=== PATIENT | female | born 1990 | race Caucasian/White ===

== ENCOUNTER → 2016-06-06 17:44 | Emergency (ER) | payer OTHER ==
[2016-06-06 17:44] VITALS: BMI 23.5
== END | disposition left against medical advice (07) ==
LOC: C.ER 17:44
DX: Z04.8 Encounter for examination and observation for other specified reasons (principal); Z02.9 Encounter for administrative examinations, unspecified

== ENCOUNTER 2016-06-25 12:39 | Emergency (ER) | payer OTHER ==
[2016-06-25 12:40] VITALS: BMI 18.8
[2016-06-25 12:57] VITALS: BP 108/72; PULSE 95; RESP 16; TEMP 98.1; O2SAT 98
--- NOTE | 2016-06-25 13:29 | C.PDOC ---
History Of Present Illness A 25 year old female, with a history of substance abuse, presents to the emergency room initially requesting detox. Patient now denies detox bed and presents with a pruritic rash on the neck. Patient reports that she was wearing a necklace on the neck yesterday and notes the rash is where the necklace was worn. Patient denies fever, chills, headaches, dizziness, or any other complaints. Time Seen by Provider: 06/25/16 13:02 Chief Complaint (Nursing): Substance Abuse History Per: Patient History/Exam Limitations: no limitations Onset/Duration Of Symptoms: Days (1) Current Symptoms Are (Timing): Still Present Severity: Mild Recent travel outside of the [place]: No Past Medical History Reviewed: Historical Data, Nursing Documentation, Vital Signs Vital Signs: Last Vital Signs Temp 98.1 F 06/25/16 12:54 Pulse 95 H 06/25/16 12:54 Resp 16 06/25/16 12:54 BP 108/72 06/25/16 12:54 Pulse Ox 98 06/25/16 13:29 - Medical History PMH: Anemia, Anxiety, Bipolar Disorder, Depression, Seizures Denies: Diabetes, Hepatitis, HIV, HTN, Chronic Kidney Disease, Sexually Transmitted Disease - [facility] Procedures DETOXIFICATION SERVICES FOR SUBSTANCE ABUSE TREATMENT (10/17/15) GROUP PSYCHOTHERAPY (10/17/15) IMMOBILIZ/WOUND ATTN NEC (10/18/01) INJECT/INFUSE ELECTROLYT (06/02/12) INJECT/INFUSE NEC (06/02/12) MEDICATION MANAGEMENT (10/17/15) MEDS MGMT FOR SUBSTANCE ABUSE TREATMENT, OTH REPL MED (10/17/15) Family History: States: No Known Family Hx - Social History Hx Tobacco Use: Yes Hx Alcohol Use: No Hx Substance Use: Yes (Methadone Program) - Immunization History Hx Tetanus Toxoid Vaccination: No Hx Influenza Vaccination: No Hx Pneumococcal Vaccination: No Review Of Systems Except As Marked, All Systems Reviewed And Found Negative. Constitutional: Negative for: Fever, Chills Gastrointestinal: Negative for: Nausea, Vomiting, Diarrhea Skin: Positive for: Rash Neurological: Negative for: Headache, Dizziness Physical Exam - Physical Exam Appears: Non-toxic Skin: Rash ([id number] maculopapular erythema blanching surrounding the neck) Head: Atraumatic, Normacephalic Eye(s): bilateral: Normal Inspection Ear(s): Bilateral: TM Erythema Nose: Normal, No Discharge Oral Mucosa: Moist Throat: Normal, No Erythema, No Exudate Neck: Normal ROM, No Midline Cervical Tenderness, No Paracervical Tenderness, Supple Cardiovascular: Rhythm Regular Respiratory: Normal Breath Sounds, No Rales, No Rhonchi, No Wheezing Gastrointestinal/Abdominal: Soft, No Tenderness, No Guarding, No Rebound Extremity: Normal ROM, No Tenderness Neurological/Psych: Oriented x3, Normal Speech ED Course And Treatment O2 Sat by Pulse Oximetry: 98 Disposition - Disposition Disposition: HOME/ ROUTINE Disposition Time: 13:27 Condition: STABLE Additional Instructions: please follow up with your doctor/specialist. please stop wearing the necklace. return to er with worsening symptoms or concerns. Prescriptions: DiphenhydrAMINE [Benadryl] 25 mg PO Q6 PRN #20 cap PRN Reason: Itching / Pruritus Hydrocortisone 1% Cream [Cortizone 1% Cream] 1 appl TP DAILY #1 tube Instructions: Contact Dermatitis (ED), Acute Rash (ED) - Clinical Impression Clinical Impression: Rash, Contact dermatitis - Scribe Statement The provider has reviewed the documentation as recorded by the Scribe Christian Platt All medical record entries made by the Elmeribtessie were at my direction and personally dictated by me. I have reviewed the chart and agree that the record accurately reflects my personal performance of the history, physical exam, medical decision making, and the department course for this patient. I have also personally directed, reviewed, and agree with the discharge instructions and disposition.
== END 2016-06-25 13:41 | disposition home or self-care (01) ==
LOC: C.ER 12:39
DX: L25.8 Unspecified contact dermatitis due to other agents (principal); F19.10 Other psychoactive substance abuse, uncomplicated

== ENCOUNTER 2016-06-26 22:51 | Emergency (ER) | payer OTHER ==
[2016-06-26 22:51] VITALS: BMI 18.8
[2016-06-26 23:14] VITALS: TEMP 97.9
--- NOTE | 2016-06-27 00:05 | C.PDOC ---
History Of Present Illness 25 year old female presents to the ED with complaints of right buttock pain radiating to her leg that began this morning and is worsening. Patient also states she has had an abnormal period over the last six month while in a clinic for detox from abusing IV drugs and injecting heroin. She notes vaginal discharge with a foul odor. Patient denies any heavy lifting, experiencing similar pains, or trauma to that region. Patient denies fever/chills, nausea, vomiting, abdominal pain, diarrhea. She denies any extremities paresthesia, weakness, sensory problems. Time Seen by Provider: 06/26/16 23:15 Chief Complaint (Nursing): Lower Extremity Problem/Injury History Per: Patient History/Exam Limitations: no limitations Onset/Duration Of Symptoms: Hrs Current Symptoms Are (Timing): Worse Recent travel outside of the [place]: No Past Medical History Reviewed: Historical Data, Nursing Documentation, Vital Signs Vital Signs: Last Vital Signs Temp 97.9 F 06/26/16 23:10 Pulse 72 06/27/16 01:49 Resp 16 06/27/16 01:49 BP 106/72 06/27/16 01:49 Pulse Ox 97 06/27/16 01:49 - Medical History PMH: Anemia, Anxiety, Bipolar Disorder, Depression, Seizures - [facility] Procedures DETOXIFICATION SERVICES FOR SUBSTANCE ABUSE TREATMENT (10/17/15) GROUP PSYCHOTHERAPY (10/17/15) IMMOBILIZ/WOUND ATTN NEC (10/18/01) INJECT/INFUSE ELECTROLYT (06/02/12) INJECT/INFUSE NEC (06/02/12) MEDICATION MANAGEMENT (10/17/15) MEDS MGMT FOR SUBSTANCE ABUSE TREATMENT, OTH REPL MED (10/17/15) Family History: States: No Known Family Hx - Social History Hx Tobacco Use: Yes Hx Alcohol Use: No Hx Substance Use: Yes (Methadone Program) - Immunization History Hx Tetanus Toxoid Vaccination: No Hx Influenza Vaccination: No Hx Pneumococcal Vaccination: No Review Of Systems Constitutional: Negative for: Fever, Chills, Sweats Respiratory: Negative for: Cough, Shortness of Breath Gastrointestinal: Negative for: Nausea, Vomiting, Abdominal Pain, Diarrhea Genitourinary: Negative for: Dysuria Musculoskeletal: Positive for: Back Pain (right lower back pain that radiates to leg ) Physical Exam - Physical Exam Appears: Non-toxic, No Acute Distress Skin: Warm, Dry Head: Atraumatic, Normacephalic Eye(s): bilateral: Normal Inspection, PERRL, EOMI Oral Mucosa: Moist Neck: Normal, Normal ROM, Supple Chest: Symmetrical, No Deformity Cardiovascular: Rhythm Regular Respiratory: No Accessory Muscle Use, No Rales, No Rhonchi, No Stridor, No Wheezing Gastrointestinal/Abdominal: Soft, No Tenderness, No Distention, No Guarding, No Rebound Back: Normal Inspection, No CVA Tenderness, No Vertebral Tenderness, No Decreased ROM, No Muscle Spasm, No Paraspinal Tenderness, Straight Leg Raising ( right at 60 degrees), Other (right buttock tenderness) Pelvic: Normal External Exam, Normal Speculum Exam, Normal Bimanual Exam, No Vaginal Bleeding, No Vaginal Discharge, Other (no cervicitis) Extremity: Normal ROM, No Tenderness Neurological/Psych: Oriented x3, Normal Speech, Normal Cognition, Normal Motor, Normal Sensation ED Course And Treatment O2 Sat by Pulse Oximetry: 99 (room air ) - CT Scan/US US PELVIS TRANSVAG Other Rad Studies (CT/US): Read By Radiologist, Radiology Report Reviewed CT/US Interpretation: EXAM: US Pelvis Complete. CLINICAL HISTORY: 25 years old, female; Pain; Pelvic pain and other: Rt leg pain; Additional info: Right pelvic pain. TECHNIQUE: Real-time pelvic ultrasound (complete) with image documentation. COMPARISON: No relevant prior studies available. FINDINGS: Uterus/cervix: Uterus measures 7.1 x 3.7 x 4.4 cm. Small amount of fluid in the endocervix. Endometrium measures 9.4 mm. No myometrial mass. Right ovary: Right ovary measures 2.5 x 2.4 x 2 cm with follicles. Normal blood flow. Left ovary: Left ovary measures 2.8 x 2.1 x 2.8 cm with a dominant 1.8 cm follicle. Normal blood. flow. Free fluid: No free fluid. IMPRESSION:This examination is predicated on a negative test. No acute findings. No primary or secondary sonographic findings of ovarian torsion. Progress Note: UA is consistabt with UTI. Macrobid po given. Patient refused Toradol IM. Ibuprofen and Valium po given. Patient was d/c home in stable condition with PMD follow up. Disposition - Disposition Disposition: HOME/ ROUTINE Disposition Time: 01:18 Condition: STABLE Additional Instructions: Follow up with PMD within 1-2 days. Return to ED if feel worse. Prescriptions: Cyclobenzaprine [Cyclobenzaprine HCl] 10 mg PO TID #15 tab Lidocaine 5% [Lidoderm] 1 patch TP DAILY #30 patch Nitrofurantoin Macrocrystals [Macrobid] 1 cap PO BID #14 cap Ibuprofen [Motrin Tab] 600 mg PO Q8 #30 tab Instructions: Urinary Tract Infection in Women (ED), Sciatica (ED) - Clinical Impression Clinical Impression: Sciatica, UTI (urinary tract infection) - Scribe Statement The provider has reviewed the documentation as recorded by the Scribe Rhiannon Todd All medical record entries made by the Scribe were at my direction and personally dictated by me. I have reviewed the chart and agree that the record accurately reflects my personal performance of the history, physical exam, medical decision making, and the department course for this patient. I have also personally directed, reviewed, and agree with the discharge instructions and disposition.
[2016-06-27 00:33] LABS: RBC URINE 22 /hpf (0-3); URINE BILIRUBIN NEGATIVE (NEGATIVE); URINE BLOOD NEGATIVE (NEGATIVE); URINE COLOR Amber (YELLOW); URINE GLUCOSE (UA) NORMAL (Normal); URINE KETONE TRACE mg/dL (NEGATIVE); URINE LEUKOCYTE ESTERASE 3+ Leu/uL (Negative); URINE PROTEIN 1+ mg/dL (NEGATIVE); URINE UROBILINOGEN NORMAL mg/dL (0.2-1.0); WBC URINE 23 /hpf (0-5)
[2016-06-27 01:54] VITALS: BP 106/72; PULSE 72; RESP 16
[2016-06-27 03:15] VITALS: O2SAT 99
--- NOTE | 2016-06-27 15:37 | US ---
Pelvic ultrasound History: Right-sided pelvic pain. Comparison: None available. Technique: Real-time sonography was performed through the pelvis utilizing transabdominal and transvaginal techniques. Findings Uterus 7.4 x 3.3 x 4.7 centimeters. Heterogeneous echotexture. Anteverted. Endometrium measures 9.4 millimeters, within normal limits. No free fluid in pelvic cul-de-sac. Right ovary: 2.5 x 2.4 x 2.0 centimeters. Normal flow. Small follicles. Left ovary: 2.8 x 2 8 x 2 centimeters. Normal Flow. Hypoechoic cyst measuring 1.5 x 1.1 x 1.8 centimeters. Impression: This exam is predicated on a negative test. 1.8 centimeter left ovarian cyst. These findings were preliminarily reported at 12:51 a.m. on 06/27/[address] Brianna Bear from [facility].
== END 2016-06-27 01:48 | disposition home or self-care (01) ==
LOC: C.ER 22:51
DX: N39.0 Urinary tract infection, site not specified (principal); M54.30 Sciatica, unspecified side
CPT/HCPCS: 76830; 76856; 81001; 84703; 87491; 87591; 96372; 99284; J1885

== ENCOUNTER 2016-06-28 11:18 | Inpatient (IN) | payer MEDICAID, OTHER ==
[2016-06-28 11:18] VITALS: BMI 18.8
--- NOTE | 2016-06-28 12:26 | C.PDOC ---
History Of Present Illness 25 year old patient presents to the ED complaining of depression and suicidal ideation. Patient states she uses heroin and her last use was 30 minutes prior to arrival. Patient denies fever or any other complaints at this time. Time Seen by Provider: 06/28/16 12:12 Chief Complaint (Nursing): Psychiatric Evaluation History Per: Patient History/Exam Limitations: other (under the influence of heroin) Onset/Duration Of Symptoms: Other Current Symptoms Are (Timing): Still Present Suicide/Self Injury Attempted (Context): None Modifying Factor(s): Other (heroin) Severity: None Pain Scale Rating Of: 0 Associated Symptoms: Depression, Suicidal Thoughts Recent travel outside of the [place]: No Past Medical History Reviewed: Historical Data, Nursing Documentation, Vital Signs Vital Signs: Last Vital Signs Temp 98.2 F 06/28/16 11:38 Pulse 92 H 06/28/16 11:38 Resp 20 06/28/16 11:38 BP 96/65 L 06/28/16 11:38 Pulse Ox 95 06/28/16 15:06 - Medical History PMH: Anemia, Anxiety, Bipolar Disorder, Depression, Seizures - [facility] Procedures DETOXIFICATION SERVICES FOR SUBSTANCE ABUSE TREATMENT (10/17/15) GROUP PSYCHOTHERAPY (10/17/15) IMMOBILIZ/WOUND ATTN NEC (10/18/01) INJECT/INFUSE ELECTROLYT (06/02/12) INJECT/INFUSE NEC (06/02/12) MEDICATION MANAGEMENT (10/17/15) MEDS MGMT FOR SUBSTANCE ABUSE TREATMENT, OTH REPL MED (10/17/15) Family History: States: Unknown Family Hx - Social History Hx Tobacco Use: Yes Hx Alcohol Use: No Hx Substance Use: Yes - Immunization History Hx Tetanus Toxoid Vaccination: No Hx Influenza Vaccination: No Hx Pneumococcal Vaccination: No Review Of Systems Except As Marked, All Systems Reviewed And Found Negative. Constitutional: Negative for: Fever Psych: Positive for: Depression, Suicidal ideation Physical Exam - Physical Exam Appears: Non-toxic, No Acute Distress Skin: Warm, Dry Head: Atraumatic, Normacephalic Neck: Normal ROM, Supple Chest: Symmetrical Cardiovascular: Rhythm Regular Respiratory: No Accessory Muscle Use Extremity: Normal ROM Neurological/Psych: Oriented x3 Gait: Steady ED Course And Treatment - Laboratory Results Result Diagrams: 06/28/16 13:38 06/28/16 13:38 O2 Sat by Pulse Oximetry: 95 (room air) Pulse Ox Interpretation: Normal Medical Decision Making Medical Decision Making: Impression: 25 y/o female with depression and suicidal ideation Plan: * Labs Progress: Patient is medically cleared. She is accepted by Dr. Velasco for admission. Disposition - Disposition Disposition: HOSPITALIZED Disposition Time: 15:05 Condition: STABLE - Clinical Impression Clinical Impression: Depression, Hypokalemia, UTI (urinary tract infection) - Scribe Statement The provider has reviewed the documentation as recorded by the Scribe Julia James Provider Attestation: All medical record entries made by the Scribe were at my direction and personally dictated by me. I have reviewed the chart and agree that the record accurately reflects my personal performance of the history, physical exam, medical decision making, and the department course for this patient. I have also personally directed, reviewed, and agree with the discharge instructions and disposition. Decision To Admit - Pt Status Changed To: Hospital Disposition Of: Inpatient - Admit Certification Admit to Inpatient:: After my assessment, the patient will require hospitalization for at least two midnights. This is because of the severity of symptoms shown, intensity of services needed, and/or the medical risk in this patient being treated as an outpatient. - InPatient: Physician Admission Certification: I certify that this patient requires 2 or more midnights of care for the following reason:: pt with depressiom, needs inpt pysch - . Bed Request Type: Psychiatry Admitting Physician: Wai Velasco Patient Diagnosis: Depression, Hypokalemia, UTI (urinary tract infection)
[2016-06-28 13:10] LABS: RBC URINE 19 /hpf (0-3); URINE BILIRUBIN NEGATIVE (NEGATIVE); URINE COLOR Yellow (YELLOW); URINE GLUCOSE (UA) 1+ mg/dL (Normal); URINE KETONE 2+ mg/dL (NEGATIVE); URINE LEUKOCYTE ESTERASE 3+ Leu/uL (Negative); URINE PROTEIN 1+ mg/dL (NEGATIVE); URINE UROBILINOGEN NORMAL mg/dL (0.2-1.0); WBC URINE 45 /hpf (0-5)
[2016-06-28 13:20] LABS: URINE BLOOD 2+ (NEGATIVE)
[2016-06-28 13:42] LABS: BASO # 0.1 K/uL (0.0-0.2); BASO % 0.6 % (0.0-2.0); EOS % 0.1 % (0.0-4.0); HEMATOCRIT 33.5 % (34.0-47.0); LYMPH # 1.4 K/uL (1.0-4.3); LYMPH % 17.7 % (20.0-40.0); MEAN CELL VOLUME 83.8 fL (81.0-99.0); MEAN CORPUSCULAR HEMOGLOBIN 28.2 pg (27.0-31.0); MEAN CORPUSCULAR HGB CONC 33.6 g/dL (33.0-37.0); MEAN PLATELET VOLUME 11.5 fL (7.2-11.7); MONO # 0.6 K/uL (0.0-0.8); MONO % 7.1 % (0.0-10.0); RED CELL DISTRIBUTION WIDTH 13.7 % (11.5-14.5); WHITE BLOOD COUNT 7.9 K/uL (4.8-10.8)
[2016-06-28 13:52] LABS: CHLORIDE 102 mmol/L (98-107)
[2016-06-28 13:53] LABS: POTASSIUM 3.2 mmol/L (3.6-5.2); SODIUM 139 mmol/L (132-148)
[2016-06-28 13:55] LABS: ALKALINE PHOSPHATASE 69 U/L (38-126); AST/SGOT 39 U/L (14-36); BILIRUBIN,TOTAL 0.7 mg/dL (0.2-1.3); BLOOD UREA NITROGEN 11 mg/dL (7-17); CARBON DIOXIDE 24 mmol/L (22-30); GFR AFRICAN-AMERICAN > 60; TOTAL PROTEIN 7.5 g/dL (6.3-8.3)
[2016-06-28] MEDS ORDERED: Potassium Chloride 20 mEq ER Tab PO STA (13:55)
[2016-06-28 13:56] LABS: ALCOHOL SERUM < 10 mg/dl (0-10); ALT/SGPT 22 U/L (9-52); CALCIUM 8.7 mg/dl (8.6-10.4); GLUCOSE,RANDOM 166 mg/dL (65-105)
[2016-06-28] MEDS ORDERED: Potassium Chloride 20 mEq ER Tab PO ONE (14:29)
[2016-06-28 15:34] VITALS: O2SAT 100
[2016-06-28] MEDS ORDERED: Aluminum Hydroxide/Magnesium Hydroxide Susp (30 mL) PO PRN (22:42)
--- NOTE | 2016-06-29 09:42 | PCM.PSYCH ---
Initial Psychiatric Evaluation - Initial Psychiatric Evaluation Type of Admission: Voluntary Legal Status: Capacity Chief Complaint (in patient's own words): "I don't feel good at all." History of Present Illness and Precipitating Events: Patient is a 25 year old [place] female who presents with depression and suicidal ideation. She lives with her father. 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 Patient states she has a history of heroin use for 6 years; her last use was yesterday. She states she 20-30 bags of heroin IV in the morning, 5-10 bags of cocaine IV after that, and another 20-30 bags of heroin IV in the evening. She uses her neck and her arms to shoot up. She states she smokes 1 blunt a day, and has been smoking cigarettes for 7 years. 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 Patient states she is depressed, anxious, distressed, and has racing thoughts. She reports suicidal ideation but denies any homicidal ideation. She reports paranoia but denies any AV hallucinations. Patient also complains of right leg pain for 2 weeks making it difficult for her to stand and walk. She states she thinks it is sciatica, and has difficulty straightening out her right leg. PMH: thrombocytopenia PastPsychHx: was at [employer] 3 years ago- got kicked out for using cocaine FamilyHx: mother and father - DM Surgeries: 2009 Hospitalizations: none Medications: none Current Medications: Active Medications Generic Name Dose Route Start Last Admin Trade Name Freq PRN Reason Stop Dose Admin Al Hydrox/Mg Hydrox/Simethicone 30 ml 06/28/16 22:42 Maalox 30 Ml PO TID PRN Indigestion / Heartburn Clonidine HCl 0.1 mg 06/28/16 22:42 Catapres PO Q8 PRN COWS Score More or Equal to 5 Diphenhydramine HCl 25 mg 06/28/16 22:23 06/28/16 22:32 Benadryl PO 25 mg HS PRN Administration Insomnia Gabapentin 300 mg 06/28/16 18:00 06/29/16 09:11 Neurontin PO 300 mg TID TERA Administration Hydroxyzine HCl 25 mg 06/28/16 22:43 Atarax PO Q4H PRN Anxiety Ibuprofen 600 mg 06/28/16 22:43 Motrin Tab PO Q6H PRN Pain, moderate (4-7) Loperamide HCl 2 mg 06/28/16 22:42 Imodium PO Q8 PRN Diarrhea Methadone HCl 0 mg 06/29/16 10:00 06/29/16 09:11 Methadone PO 07/03/16 09:59 15 mg Q24H TERA Administration Taper Multivitamins 1 tab 06/29/16 10:00 Hexavitamin PO DAILY TERA Nitrofurantoin Macrocrystals 100 mg 06/28/16 22:00 06/29/16 09:11 Macrobid PO 07/04/16 22:00 100 mg Q12H TERA Administration Ondansetron HCl 4 mg 06/28/16 22:42 Zofran Tab PO Q8 PRN Nausea/Vomiting Trazodone HCl 50 mg 06/28/16 22:43 Desyrel PO HS PRN Insomnia Past Psychiatric History - Past Psychiatric History Previous Treatment History: Inpatient Prior Professional Help: [employer] 3 years ago - kicked out for using cocaine History of Abuse: Patient states she has a history of heroin use for 6 years; her last use was yesterday. She states she 20-30 bags of heroin IV in the morning, 5-10 bags of cocaine IV after that, and another 20-30 bags of heroin IV in the evening. She uses her neck and her arms to shoot up. She states she smokes 1 blunt a day, and has been smoking cigarettes for 7 years. 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 History of Family Illness: Mother and father - DM Pertinent Medical Hx (Current Medical&Sleep Prob, Allergies): Allergies Allergy/AdvReac Type Severity Reaction Status Date / Time cheese AdvReac Intermediate RASH Verified 06/25/16 12:54 No Known Home Med 06/28/16 Review of Systems - Review of Systems All systems: reviewed and no additional remarkable complaints except - Musculoskeletal Musculoskeletal: Limited Range of Motion, Stiffness - Integumentary Additional comments: Track ennis on both forearms and on neck - Psychiatric Psychiatric: Anxiety, Depression, Irritability, Mood Swings, Paranoia, Suicidal Ideation Mental Status Examination - Personal Presentation Personal Presentation: Looks stated age - Affect Affect: Constricted - Motor Activity Motor Activity: Psychomotor Agitation - Reliability in Providing Information Reliability in Providing Information: Good - Speech Speech: Organized - Mood Mood: Depressed, Anxious - Formal Thought Process Formal Thought Process: Delusions, Paranoia - Hallucinations/Delusions Delusions: Persecution - Obsessions/Compulsions Obsessions: No Compulsions: No - Cognitive Functions Orientation: Person, Place, Situation, Time Sensorium: Alert Attention/Concentration: Attentive Abstract Thinking: [place] Estimate of Intelligence: Below average Judgement: Imparied, as evidence by: Poor judgement, Imparied, as evidence by: Lack of insight into illness - Risk Risk: Suicidal, Withdrawal, Diminished functioning - Strength & Assets Inventory Strength & Assets Inventory: Family support DSM 5 DX - DSM 5 DSM 5 Diagnosis: Bipolar disorder MRE Mixed severe without psychotic features CBT Psychoeducation Supportive therapy, group therapy, individual therapy Neurontin 300 mg by mouth 3 times a day Trazodone 100 mg by mouth daily at bedtime Alcohol use disorder severe CBT Psychoeducation Supportive therapy, individual therapy Use [place] for abstinence Alcohol withdrawal uncomplicated CBT Psychoeducation Supportive therapy, individual therapy Librium when necessary Librium taper Folic acid/thiamine/multivitamin HTN Continue prescribed medications Monitor s/s - Recommended/Plan of Treatment Treatment Recommendations and Plan of Treatment: Bipolar disorder MRE Mixed severe with psychotic features CBT Psychoeducation Supportive therapy, group therapy, individual therapy [place] 300 mg by mouth twice a day Neurontin 300 mg by mouth 3 times a day Trazodone 50 mg by mouth daily at bedtime Opioid use disorder severe CBT Psychoeducation Supportive therapy, individual therapy Use [place] for abstinence Opioid withdrawal CBT Psychoeducation Supportive therapy, individual therapy Clonidine when necessary Methadone taper Cocaine use disorder severe CBT Psychoeducation Supportive therapy, individual therapy Use [place] for abstinence Sedative/hypnotic use disorder severe CBT Psychoeducation Supportive therapy, individual therapy Use [place] for abstinence Ativan 1 mg every 6 hours when necessary UTI Continue prescribed medications Monitor s/s
[2016-06-29] MEDS: Multiple Vitamins Tab PO SCH (11:15)
[2016-06-29 11:31] LABS: CHLORIDE 102 mmol/L (98-107)
[2016-06-29 11:32] LABS: POTASSIUM 4.2 mmol/L (3.6-5.2); SODIUM 139 mmol/L (132-148)
[2016-06-29 11:34] LABS: GFR AFRICAN-AMERICAN > 60
[2016-06-29 11:35] LABS: ALB/GLOB RATIO 0.9 (1.0-2.1); ALKALINE PHOSPHATASE 78 U/L (38-126); ALT/SGPT 22 U/L (9-52); AST/SGOT 40 U/L (14-36); BILIRUBIN,TOTAL 0.8 mg/dL (0.2-1.3); BLOOD UREA NITROGEN 9 mg/dL (7-17); CALCIUM 9.1 mg/dl (8.6-10.4); CARBON DIOXIDE 26 mmol/L (22-30); GLUCOSE,RANDOM 95 mg/dL (65-105); TOTAL PROTEIN 8.5 g/dL (6.3-8.3)
[2016-06-29 11:36] LABS: MAGNESIUM 2.3 mg/dL (1.6-2.3)
[2016-06-29 12:02] LABS: THYROID STIMULATING HORMONE 0.21 mIU/L (0.46-4.68)
[2016-06-30] MEDS: Multiple Vitamins Tab PO SCH (10:05)
--- NOTE | 2016-06-30 13:55 | PCM.PYCHPN ---
Psychiatric Progress Note - Psychiatric Progress Note Patient seen today, length of contact: 15 min Patient Chief Complaint: "I don't feel good at all." Problems Identified/Issues Discussed: Patient seen and evaluated, chart reviewed and discussed with the nurse. Patient reports irritability and agitation. She reports racing of thoughts and flight of ideas and anxiety. She still reports withdrawal symptoms including shakes, anxiety, headaches and sweating. However she remained calm and cooperative. She is taking medication and denies any side effects. Supportive therapy and psychoeducation were given Medication Change: Yes (Methadone taper) Medical Record Reviewed: Yes Mental Status Examination - Cognitive Function Orientation: Person, Place, Situation, Time Memory: Intact Attention: WNL Concentration: Poor Association: WNL Fund of Knowledge: Poor - Mood Mood: Depressed, Anxious - Affect Affect: Constricted - Formal Thought Process Formal Thought Process: No Impairment - Suicidal Ideation Suicidal Ideation: No - Homicidal Ideation Homicidal Ideation: No Goal/Treatment Plan - Goal/Treatment Plan Need for Continued Stay: Discharge may exacerbated symptoms, Severe functional impairment Progress Toward Problem(s) and Goals/Treatment Plan: Bipolar disorder MRE Mixed severe with psychotic features CBT Psychoeducation Supportive therapy, group therapy, individual therapy [place] 300 mg by mouth twice a day Neurontin 300 mg by mouth 3 times a day Trazodone 50 mg by mouth daily at bedtime Opioid use disorder severe CBT Psychoeducation Supportive therapy, individual therapy Use CT for abstinence Opioid withdrawal CBT Psychoeducation Supportive therapy, individual therapy Clonidine when necessary Methadone taper Cocaine use disorder severe CBT Psychoeducation Supportive therapy, individual therapy Use CT for abstinence Sedative/hypnotic use disorder severe CBT Psychoeducation Supportive therapy, individual therapy Use CT for abstinence Ativan 1 mg every 6 hours when necessary UTI Continue prescribed medications Monitor s/s - Smoking Cessation Smoking Cessation Initiated: No
--- NOTE | 2016-06-30 14:27 | CP.PCM.CON ---
Addendum entered and electronically signed by Eunice Dixon 06/30/16 16:36: f/u venous dopplers b/l Original Note: <Eunice Dixon - Last Filed: 06/30/16 16:15> History of Present Illness - History of Present Illness History of Present Illness: Medicine Consult note for Dr. Bains Reason for consult: pain and weakness in right leg and hip. HPI: Pt is a 25 year old female PMHx of thrombocytopenia, depression, suicidal ideation, hep C, and substance abuse complaining of R leg and hip pain/ weakness. Pt seen and examined at bedside. Nursing states that pt has been complaining of leg pain since her wheelchair was removed shortly after admission. Pt says the pain starts at her low back, radiates into her groin and goes down to above her knee. She describes the pain as sharp "like birthing contractions" and ranks it as a 10/10. She states the pain started 3 days ago when she woke up. She states there was no inciting event or trauma, but she also notes that she rode a bike the day before. She reports the pain is excruciatingly tender to touch and her Right foot hurts when she puts any pressure on it. She reports having to limp when she walks as she is unable to extend her R leg fully. She admits to weakness, R leg pain, R swelling, and R lower back pain. She was seen [place] [facility] [place] for similar complaints but reports she does not remember what they did as she was "doped up" but believes they might have done an u/s. She deneis fever, chills, headache, dizziness, chest pain, palpitations, SOB, cough, abd pain, nausea, vomiting, bowel/bladder complaints. PMHx: thrombocytopenia, depression, suicidal ideation, hep C, substance abuse Allergies: cheese Home medications: none Past Surgical Hx: 2010 Social Hx: 20-30 bags of heroin IV in the morning, 5-10 bags of cocaine IV after that, and another 20-30 bags of heroin IV in the evening. Patient injects in her neck as she has poor arm veins. Patient smokes 1 blunt a day, and has been smoking cigarettes for 7 years. 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 Family Hx: mother and father - DM ROS: admits to weakness, R leg pain, R swelling, and R lower back pain. She was seen at [facility] [place] ago for similar complaints but reports she does not remember what they did as she was "doped up" but believes they might have done an u/s. She denies fever, chills, headache, dizziness, chest pain, palpitations , SOB, cough, abd pain, nausea, vomiting, bowel/bladder complaints. Review of Systems - Constitutional Constitutional: As Per HPI, Weakness. absent: Chills, Fever - EENT Eyes: As Per HPI. absent: Change in Vision Ears: As Per HPI. absent: Dizziness Nose/Mouth/Throat: As Per HPI. absent: Sore Throat - Cardiovascular Cardiovascular: As Per HPI. absent: Chest Pain, Dyspnea, Paroxysmal Nocturnal Dyspnea - Respiratory Respiratory: As Per HPI. absent: Cough, Dyspnea on Exertion, Chest Congestion - Gastrointestinal Gastrointestinal: As Per HPI. absent: Abdominal Pain, Constipation, Diarrhea, Nausea, Vomiting - Genitourinary Genitourinary: As Per HPI. absent: Dysuria - Musculoskeletal Musculoskeletal: As Per HPI, Abnormal Gait, Arthralgias (RLE), Back Pain (R lower back), Limited Range of Motion (R leg secondary to R hip pain), Muscle Cramps (RLE), Muscle Weakness (R leg), Myalgias (R lower leg), Numbness (R lower leg), Radiating Pain into Limb (R lower leg), Tingling (RLE). absent: Neck Pain - Integumentary Integumentary: As Per HPI. absent: Rash - Neurological Neurological: As Per HPI, Abnormal Gait. absent: Dizziness, Headaches - Psychiatric Psychiatric: As Per HPI, Anxiety, Depression - Endocrine Endocrine: As Per HPI. absent: Palpitations, Polydipsia, Polyphagia - Hematologic/Lymphatic Hematologic: As Per HPI. absent: Easy Bleeding, Easy Bruising, Lymphadenopathy Past Patient History - Infectious Disease Hx of Infectious Diseases: None - Past Social History Smoking Status: Heavy Smoker > 10 Cigarettes Daily - CARDIAC Hx Hypertension: No - PULMONARY Hx Tuberculosis: No - NEUROLOGICAL Hx Seizures: Yes - HEENT Hx HEENT Problems: No - RENAL Hx Chronic Kidney Disease: No - ENDOCRINE/METABOLIC Hx Endocrine Disorders: No - HEMATOLOGICAL/ONCOLOGICAL Hx Anemia: Yes - INTEGUMENTARY Hx Dermatological Problems: No - MUSCULOSKELETAL/RHEUMATOLOGICAL Hx Musculoskeletal Disorders: No - GASTROINTESTINAL Hx Gastrointestinal Disorders: No - GENITOURINARY/GYNECOLOGICAL Hx Sexually Transmitted Disorders: No - PSYCHIATRIC Hx Substance Use: Yes - SURGICAL HISTORY Hx Surgeries: Yes Hx Section: Yes - ANESTHESIA Hx Anesthesia: Yes Hx Anesthesia Reactions: No Hx Malignant Hyperthermia: No Meds Allergies/Adverse Reactions: Allergies Allergy/AdvReac Type Severity Reaction Status Date / Time cheese AdvReac Intermediate RASH Verified 06/25/16 12:54 - Medications Medications: Current Medications Al Hydrox/Mg Hydrox/Simethicone (Maalox 30 Ml) 30 ml PO TID PRN PRN Reason: Indigestion / Heartburn Clonidine HCl (Catapres) 0.1 mg PO Q8 PRN PRN Reason: COWS Score More or Equal to 5 Cyclobenzaprine HCl (Flexeril) 10 mg PO Q6 PRN PRN Reason: Muscle spasm Last Admin: 06/30/16 04:43 Dose: 10 mg Diphenhydramine HCl (Benadryl) 25 mg PO HS PRN PRN Reason: Insomnia Last Admin: 06/29/16 21:18 Dose: 25 mg Gabapentin (Neurontin) 300 mg PO TID [facility] Last Admin: 06/30/16 13:42 Dose: 300 mg Hydroxyzine HCl (Atarax) 25 mg PO Q4H PRN PRN Reason: Anxiety Last Admin: 06/30/16 11:00 Dose: 25 mg Ibuprofen (Motrin Tab) 600 mg PO Q6H PRN PRN Reason: Pain, moderate (4-7) Last Admin: 06/29/16 17:08 Dose: 600 mg Comobabi Carbonate (Comobabi Carbonate 300mg) 300 mg PO TID [facility] Last Admin: 06/30/16 13:42 Dose: 300 mg Loperamide HCl (Imodium) 2 mg PO Q8 PRN PRN Reason: Diarrhea Methadone HCl (Methadone) 10 mg PO Q24H [facility] PRN Reason: Taper Stop: 07/03/16 09:59 Last Admin: 06/30/16 10:05 Dose: 10 mg Multivitamins (Hexavitamin) 1 tab PO DAILY [facility] Last Admin: 06/30/16 10:05 Dose: 1 tab Nitrofurantoin Macrocrystals (Macrobid) 100 mg PO Q12H [facility] Stop: 07/04/16 22:00 Last Admin: 06/30/16 10:05 Dose: 100 mg Ondansetron HCl (Zofran Tab) 4 mg PO Q8 PRN PRN Reason: Nausea/Vomiting Trazodone HCl (Desyrel) 50 mg PO HS PRN PRN Reason: Insomnia Last Admin: 06/29/16 21:19 Dose: 50 mg Physical Exam - Constitutional Appears: Non-toxic, In Acute Distress, Chronically Ill - Head Exam Head Exam: ATRAUMATIC, NORMAL INSPECTION, NORMOCEPHALIC - Eye Exam Eye Exam: Normal appearance. absent: Conjunctival injection, Scleral icterus - ENT Exam ENT Exam: Mucous Membranes Moist - Neck Exam Neck exam: Positive for: Full Rom Additional comments: neck ecchymosis likely secondary to needle injection sites - Respiratory Exam Respiratory Exam: Clear to Auscultation Bilateral, NORMAL BREATHING PATTERN. absent: Accessory Muscle Use, Rales, Rhonchi, Wheezes, Respiratory Distress - Cardiovascular Exam Cardiovascular Exam: REGULAR RHYTHM, RRR, +S1, +S2. absent: Systolic Murmur - GI/Abdominal Exam GI & Abdominal Exam: Normal Bowel Sounds, Soft, Tenderness (to palpation). absent: Distended, Firm, Guarding, Rigid - Extremities Exam Extremities exam: Positive for: tenderness, pedal pulses present. Negative for : calf tenderness, joint swelling, pedal edema Additional comments: ecchymosis likely secondary to needle injection sites on feet - Back Exam Back exam: NORMAL INSPECTION, paraspinal tenderness (R lower back ), tenderness (R lower back and R hip), vertebral tenderness (R lower back). absent: rash noted - Neurological Exam Neurological exam: Abnormal Gait, Alert, Oriented x3 - Psychiatric Exam Psychiatric exam: Anxious, Depressed - Skin Skin Exam: Dry, Intact, Normal Color, Warm Results - Vital Signs Recent Vital Signs: Last Vital Signs Temp 97.5 F L 06/29/16 08:07 Pulse 74 06/29/16 15:55 Resp 20 06/29/16 08:07 BP 92/62 L 06/29/16 15:55 Pulse Ox 100 06/28/16 15:34 - Labs Result Diagrams: 06/28/16 13:38 06/29/16 11:14 Labs: Laboratory Results - last 24 hr 06/30/16 08:15 Hepatitis C Antibody Reactive H Assessment & Plan - Assessment and Plan (Free Text) Assessment: 25 year old female PMHx of thrombocytopenia, depression, suicidal ideation, hep C, substance abuse presenting with R hip pain radiating to her leg Plan: R hip pain -Lumbar radiculopathy vs herniated disc vs sciatica vs hip fracture vs muscle strain vs neuropathy vs malingering -f/u AM labs -f/u hip x-ray b/l -f/u lumbar x-ray -f/u sacrum & coccyx x-ray -Fall precaution -Flexeril 10mg po q6 prn muscle spasm -Neurontin 300mg po tid -Motrin 600mg po q6h prn pain mod UTI -Macrobid 100mg po q12 -UA +3 leuk esterase, +45 WBC, +19 RBC, +1 Protein Hep C -Manage outpatient Bipolar disorder with psychotic features -Managed as per psych Severe opioid use disorder -Managed as per psych Opioid withdrawal -Managed as per psych Severe cocaine use disorder -Managed as per psych Substance abuse -Managed as per psych PPX -Zofran 4mg po q8 prn nausea/vomiting -Ibuprofen 600mg po q6 prn pain mod -Pepcid 20mg po bid -multivitamins Plan discussed with Dr. Nara Dixon PGY1 <Marivel Bains V - Last Filed: 07/01/16 09:25> Meds - Medications Medications: Current Medications Al Hydrox/Mg Hydrox/Simethicone (Maalox 30 Ml) 30 ml PO TID PRN PRN Reason: Indigestion / Heartburn Clonidine HCl (Catapres) 0.1 mg PO Q8 PRN PRN Reason: COWS Score More or Equal to 5 Cyclobenzaprine HCl (Flexeril) 10 mg PO Q6 PRN PRN Reason: Muscle spasm Last Admin: 06/30/16 04:43 Dose: 10 mg Diphenhydramine HCl (Benadryl) 25 mg PO HS PRN PRN Reason: Insomnia Last Admin: 06/30/16 21:20 Dose: 25 mg Famotidine (Pepcid) 20 mg PO BID [facility] Last Admin: 06/30/16 17:49 Dose: 20 mg Gabapentin (Neurontin) 300 mg PO TID [facility] Last Admin: 06/30/16 17:49 Dose: 300 mg Hydroxyzine HCl (Atarax) 25 mg PO Q4H PRN PRN Reason: Anxiety Last Admin: 06/30/16 18:43 Dose: 25 mg Ibuprofen (Motrin Tab) 600 mg PO Q6H PRN PRN Reason: Pain, moderate (4-7) Last Admin: 06/30/16 17:51 Dose: 600 mg Comobabi Carbonate (Comobabi Carbonate 300mg) 300 mg PO TID [facility] Last Admin: 06/30/16 17:49 Dose: 300 mg Loperamide HCl (Imodium) 2 mg PO Q8 PRN PRN Reason: Diarrhea Methadone HCl (Methadone) 10 mg PO Q24H [facility] PRN Reason: Taper Stop: 07/03/16 09:59 Last Admin: 06/30/16 10:05 Dose: 10 mg Multivitamins (Hexavitamin) 1 tab PO DAILY [facility] Last Admin: 06/30/16 10:05 Dose: 1 tab Nitrofurantoin Macrocrystals (Macrobid) 100 mg PO Q12H [facility] Stop: 07/04/16 22:00 Last Admin: 06/30/16 21:20 Dose: 100 mg Ondansetron HCl (Zofran Tab) 4 mg PO Q8 PRN PRN Reason: Nausea/Vomiting Last Admin: 06/30/16 18:43 Dose: 4 mg Trazodone HCl (Desyrel) 50 mg PO HS PRN PRN Reason: Insomnia Last Admin: 06/30/16 21:20 Dose: 50 mg Results - Vital Signs Recent Vital Signs: Last Vital Signs Temp 97.6 F 07/01/16 08:01 Pulse 93 H 07/01/16 08:01 Resp 18 07/01/16 08:01 BP 94/59 L 07/01/16 08:01 Pulse Ox 100 06/28/16 15:34 - Labs Result Diagrams: 06/28/16 13:38 06/29/16 11:14 Labs: Laboratory Results - last 24 hr 06/30/16 08:15 Hepatitis C Antibody Reactive H Attending/Attestation - Attestation I have personally seen and examined this patient.: Yes I have fully participated in the care of the patient.: Yes I have reviewed all pertinent clinical information: Yes Notes (Text): This is late computer entry for 06/30/16. Patient seen, examined and case discussed with day-time resident. Patient reporting history of 3 day history of associated low back pain involving right hip extending into the groin. Patient denies trauma, denies heavy lifting, denies injecting into the back nor groin. Patient reports hyperesthesia over the right ASIS. Patient has negative straight leg test bilateral. Cranial nerves 2-12 grossly intact. Strength RUE 5/5 and LLE 5/5, RLE 3/5 limited secondary to pain. Patient reports she was recently at [facility] [place] ago, where she reports she had a doppler? done but she was discharged from the emergency room. Patient reports she is active heroin user, injects in the neck usually. Patient reporting she was symptomatic of urinary tract infection, patient is ALLERGIC to PCN, and started on Macrobid by psych. Patient reports her periods are sporadic given her heroin user, but reports she is definitely not . 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 Exam: General: awake, alert, oriented X3, in mild stress, no facial droop, clear speech +gag reflex Heart: S1, S2, regular rate and rhythm Lungs: CTA b/l no W/R/R Abdomen: Soft NT/ND, BS X4 present, no guarding no rigidity, negative suprapubic tenderness Back: No apparent sign of scolosis, no tenderness palpated over the spine, no observed fluctance nor need ennis, no rash Neurology: CN2-12 neurologically intact Strength: Upper extremities: 5/5 b/l Lower extremities: Left 5/5; Right 4/5 limited secondary to pain Upon distraction: patient is negative straight leg test bilateral; negative Babinski's bilateral Patient reports HYPER-estesia over the right hip including point tenderness at ASIS, lateral aspect of hip compared to left side. Patient has antalgic gait. Patient exhibits passive lexis intact over the foot and the knee, but flexion and extension of the right hip is limited secondary to pain. Patient reports she feels better when pressure is applied at Right iliac crest Femoral pulses are palpable. Pedal pulses are palpable Assessment/Plan 1) Right hip pain * Suspected etiologies included: Lumbar radiculopathy, herniated disc, sciatica , hip fracture, muscle strain, unclear if patient is malingering. * Patient ordered for xrays including hip and L-Spine xrays to rule out acute pathology. Patient denies bowel/urinary incontinence, denies saddle anesthesia, and patient has no apparent foot drop on exam. -Fall precaution * Per psych, patient is started on Flexeril 10mg po q6 prn muscle spasm, Neurontin 300mg po tid and Motrin 600mg po q6h prn pain mod * Recommend for neurology consult 2) UTI * Macrobid 100mg po q12 * UA +3 leuk esterase, +45 WBC, +19 RBC, +1 Protein * negative urine * Patient is ALLERGIC to PCN 3) Hep C * Manage outpatient; never been previously treated; active IV user 4) Bipolar disorder with psychotic features * Managed as per psych 5) Severe opioid use disorder * Managed as per psych 6) Opioid withdrawal * Managed as per psych 7) Severe cocaine use disorder * Managed as per psych 8) Substance abuse * Managed as per psych 9) PPX * Zofran 4mg po q8 prn nausea/vomiting * Ibuprofen 600mg po q6 prn pain mod * Pepcid 20mg po bid * multivitamins
--- NOTE | 2016-07-01 06:54 | CP.PCM.PN ---
<ZackEunice - Last Filed: 07/01/16 16:46> Subjective - Date & Time of Evaluation Date of Evaluation: 07/01/16 Time of Evaluation: 07:00 - Subjective Subjective: PGY1 Medicine note for Dr. Bains Pt seen and examined at bedside. Nursing reports no adverse events overnight. Today, patient is clearly more comfortable than yesterday. She states she was given motrin and took a hot shower and now she can extend her leg. Pt says her pain is well controlled and that she was able to sleep well last night. Pt denies headache, dizziness, chest pain, shortness of breath, palpitations, abdominal pain, bowel/bladder complaints or leg swelling. Objective - Vital Signs/Intake and Output Vital Signs (last 24 hours): Temp Pulse Resp BP Pulse Ox 98.2 F 90 20 103/69 100 06/30/16 14:43 06/30/16 16:12 06/30/16 14:43 06/30/16 16:12 06/28/16 15:34 - Medications Medications: Current Medications Al Hydrox/Mg Hydrox/Simethicone (Maalox 30 Ml) 30 ml PO TID PRN PRN Reason: Indigestion / Heartburn Clonidine HCl (Catapres) 0.1 mg PO Q8 PRN PRN Reason: COWS Score More or Equal to 5 Cyclobenzaprine HCl (Flexeril) 10 mg PO Q6 PRN PRN Reason: Muscle spasm Last Admin: 06/30/16 04:43 Dose: 10 mg Diphenhydramine HCl (Benadryl) 25 mg PO HS PRN PRN Reason: Insomnia Last Admin: 06/30/16 21:20 Dose: 25 mg Famotidine (Pepcid) 20 mg PO BID [facility] Last Admin: 06/30/16 17:49 Dose: 20 mg Gabapentin (Neurontin) 300 mg PO TID [facility] Last Admin: 06/30/16 17:49 Dose: 300 mg Hydroxyzine HCl (Atarax) 25 mg PO Q4H PRN PRN Reason: Anxiety Last Admin: 06/30/16 18:43 Dose: 25 mg Ibuprofen (Motrin Tab) 600 mg PO Q6H PRN PRN Reason: Pain, moderate (4-7) Last Admin: 06/30/16 17:51 Dose: 600 mg [place] Carbonate ([place] Carbonate 300mg) 300 mg PO TID [facility] Last Admin: 06/30/16 17:49 Dose: 300 mg Loperamide HCl (Imodium) 2 mg PO Q8 PRN PRN Reason: Diarrhea Methadone HCl (Methadone) 10 mg PO Q24H [facility] PRN Reason: Taper Stop: 07/03/16 09:59 Last Admin: 06/30/16 10:05 Dose: 10 mg Multivitamins (Hexavitamin) 1 tab PO DAILY [facility] Last Admin: 06/30/16 10:05 Dose: 1 tab Nitrofurantoin Macrocrystals (Macrobid) 100 mg PO Q12H [facility] Stop: 07/04/16 22:00 Last Admin: 06/30/16 21:20 Dose: 100 mg Ondansetron HCl (Zofran Tab) 4 mg PO Q8 PRN PRN Reason: Nausea/Vomiting Last Admin: 06/30/16 18:43 Dose: 4 mg Trazodone HCl (Desyrel) 50 mg PO HS PRN PRN Reason: Insomnia Last Admin: 06/30/16 21:20 Dose: 50 mg - Labs Labs: 06/29/16 11:14 - Constitutional Appears: Non-toxic, No Acute Distress - Head Exam Head Exam: NORMAL INSPECTION - Eye Exam Eye Exam: Normal appearance. absent: Conjunctival injection, Scleral icterus - ENT Exam ENT Exam: Mucous Membranes Moist - Neck Exam Neck Exam: Full ROM, Normal Inspection - Respiratory Exam Respiratory Exam: Clear to Ausculation Bilateral, NORMAL BREATHING PATTERN. absent: Accessory Muscle Use, Rales, Rhonchi, Wheezes, Respiratory Distress - Cardiovascular Exam Cardiovascular Exam: REGULAR RHYTHM, RRR, +S1, +S2 - GI/Abdominal Exam GI & Abdominal Exam: Soft, Normal Bowel Sounds. absent: Firm, Guarding, Rigid, Tenderness - Extremities Exam Extremities Exam: Normal Capillary Refill, Normal Inspection. absent: Pedal Edema, Tenderness - Back Exam Back Exam: NORMAL INSPECTION, tenderness (to palpation R lower back), vertebral tenderness (R lumbar). absent: CVA tenderness (L), CVA tenderness (R), rash noted - Neurological Exam Neurological Exam: Alert, Awake, Oriented x3 - Psychiatric Exam Psychiatric exam: Anxious - Skin Skin Exam: Dry, Intact, Normal Color, Warm Assessment and Plan - Assessment and Plan (Free Text) Assessment: 25 year old female PMHx of thrombocytopenia, depression, suicidal ideation, hep C, substance abuse presenting with R hip pain radiating to her leg Plan: R hip pain -Lumbar radiculopathy vs herniated disc vs sciatica vs hip fracture vs muscle strain vs neuropathy vs malingering -hip x-ray b/l: unremarkable -lumbar x-ray: unremarkable -sacrum & coccyx x-ray : unremarkable -f/u dopplers -Fall precaution -Flexeril 10mg po q6 prn muscle spasm -Neurontin 300mg po tid -Motrin 600mg po q6h prn pain mod -Neurology Dr. Garcia consulted- f/u recommendations UTI -Macrobid 100mg po q12 -UA +3 leuk esterase, +45 WBC, +19 RBC, +1 Protein Vaginal discharge -f/u GC/Chlamydia cultures -f/u HIV -f/u RPR -Statistical Modeler consult: f/u reccs Dr. Leigh Hep C -Manage outpatient Bipolar disorder with psychotic features -Managed as per psych Severe opioid use disorder -Managed as per psych Opioid withdrawal -Managed as per psych Severe cocaine use disorder -Managed as per psych Substance abuse -Managed as per psych PPX -Zofran 4mg po q8 prn nausea/vomiting -Ibuprofen 600mg po q6 prn pain mod -Pepcid 20mg po bid -multivitamins Plan discussed with Dr. Nara Dixon PGY1 <Marivel Bains V - Last Filed: 07/01/16 21:49> Objective - Vital Signs/Intake and Output Vital Signs (last 24 hours): Temp Pulse Resp BP Pulse Ox 97.6 F 101 H 18 108/68 100 07/01/16 08:01 07/01/16 16:09 07/01/16 08:01 07/01/16 16:09 06/28/16 15:34 - Medications Medications: Current Medications Al Hydrox/Mg Hydrox/Simethicone (Maalox 30 Ml) 30 ml PO TID PRN PRN Reason: Indigestion / Heartburn Clonidine HCl (Catapres) 0.1 mg PO Q8 PRN PRN Reason: COWS Score More or Equal to 5 Cyclobenzaprine HCl (Flexeril) 10 mg PO Q6 PRN PRN Reason: Muscle spasm Last Admin: 06/30/16 04:43 Dose: 10 mg Diphenhydramine HCl (Benadryl) 25 mg PO HS PRN PRN Reason: Insomnia Last Admin: 07/01/16 21:27 Dose: 25 mg Famotidine (Pepcid) 20 mg PO BID [facility] Last Admin: 07/01/16 17:14 Dose: 20 mg Gabapentin (Neurontin) 300 mg PO BID [facility] Hydroxyzine HCl (Atarax) 25 mg PO Q4H PRN PRN Reason: Anxiety Last Admin: 07/01/16 10:51 Dose: 25 mg Ibuprofen (Motrin Tab) 600 mg PO Q6H PRN PRN Reason: Pain, moderate (4-7) Last Admin: 07/01/16 21:30 Dose: 600 mg [place] Carbonate ([place] Carbonate 300mg) 300 mg PO TID [facility] Last Admin: 07/01/16 17:14 Dose: 300 mg Loperamide HCl (Imodium) 2 mg PO Q8 PRN PRN Reason: Diarrhea Methadone HCl (Methadone) 5 mg PO Q24H [facility] PRN Reason: Taper Stop: 07/03/16 09:59 Last Admin: 07/01/16 10:48 Dose: 5 mg Multivitamins (Hexavitamin) 1 tab PO DAILY [facility] Last Admin: 07/01/16 10:47 Dose: 1 tab Nitrofurantoin Macrocrystals (Macrobid) 100 mg PO Q12H [facility] Stop: 07/04/16 22:00 Last Admin: 07/01/16 10:47 Dose: 100 mg Ondansetron HCl (Zofran Tab) 4 mg PO Q8 PRN PRN Reason: Nausea/Vomiting Last Admin: 06/30/16 18:43 Dose: 4 mg Trazodone HCl (Desyrel) 50 mg PO HS PRN PRN Reason: Insomnia Last Admin: 07/01/16 21:27 Dose: 50 mg - Labs Labs: 07/01/16 11:59 07/01/16 11:59 Attending/Attestation - Attestation I have personally seen and examined this patient.: Yes I have fully participated in the care of the patient.: Yes I have reviewed all pertinent clinical information, including history, physical exam and plan: Yes Notes (Text): Patient seen, examined and case discussed with day-time resident. Discussed with clinical partners, patient continues to have antalagic gait observed as she is walking to and from the shower. Patient seen after her shower this morning, patient able to extend and flex at the right improved compared to yesterday. Patient's radiographs were and read normal today. Discussed with psych, reports patient has track ennis every where than given her initial response to me regarding injects in the neck. Recommend for Ob-instructor wastewater treatment plant given patient's complaint of vaginal discharge. Patient reports she was recommend for Metrogel last time she has had it. 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 Patient reports she wears condoms. Appreciate input by neurologist-->recommending for MRI spine given her antalagic gait. Assessment/Plan 1) Right hip pain; Antalgic gait * Suspected etiologies included: Lumbar radiculopathy, herniated disc, sciatica , hip fracture, muscle strain, unclear if patient is malingering. * Hip, sacral and L-S xrays show normal radiographs * Patient denies bowel/urinary incontinence, denies saddle anesthesia, and patient has no apparent foot drop on exam. -Fall precaution * Per psych, patient is started on Flexeril 10mg po q6 prn muscle spasm, Neurontin 300mg po tid and Motrin 600mg po q6h prn pain mod * Neurology (Dr. Garcia)-->help appreciated-->recommended for MRI spine * Started on Gabapentin 300mg PO tid 2) UTI * Macrobid 100mg po [id number] * UA +3 leuk esterase, +45 WBC, +19 RBC, +1 Protein * negative urine * Patient is ALLERGIC to PCN * Compliant of dysuria 3) Vaginal discharge * Recommend for OB-DIRECTOR REPORT consult * Ordered for STD screening 4) Hep C * Manage outpatient; never been previously treated; active IV user 5) Bipolar disorder with psychotic features * Managed as per psych 6) Severe opioid use disorder * Managed as per psych 7) Opioid withdrawal * Managed as per psych 8) Severe cocaine use disorder * Managed as per psych 9) Substance abuse * Managed as per psych 10) PPX * Zofran 4mg po q8 prn nausea/vomiting * Ibuprofen 600mg po q6 prn pain mod * Pepcid 20mg po bid * multivitamins 11) Thrombocytopenia * improving platelets
[2016-07-01] MEDS: Multiple Vitamins Tab PO SCH (10:47)
--- NOTE | 2016-07-01 10:55 | RAD ---
PROCEDURE: Radiographs of the Sacrum and Coccyx HISTORY: right hip pain COMPARISON: None available. TECHNIQUE: Frontal and lateral views of the sacrum and coccyx FINDINGS: BONES: Sacrum and coccyx unremarkable. No fracture or focal lesion. SACROILIAC JOINTS: Unremarkable. OTHER FINDINGS: None. IMPRESSION: Unremarkable radiographs of the sacrum and coccyx.
--- NOTE | 2016-07-01 10:55 | RAD ---
PROCEDURE: Radiographs of the pelvis and bilateral hips HISTORY: right hip pain COMPARISON: None. FINDINGS: BONES: Pelvis: Unremarkable. Right hip:Unremarkable. Left hip:Unremarkable. JOINTS: Right hip: Unremarkable. Left hip: Unremarkable. Sacroiliac Joints: Unremarkable. Pubic symphysis: Unremarkable. SOFT TISSUES: Normal. OTHER FINDINGS: None. IMPRESSION: Unremarkable radiographs of the hips and pelvis.
--- NOTE | 2016-07-01 11:00 | RAD ---
PROCEDURE: Radiographs of the Lumbar Spine. HISTORY: right hip pain COMPARISON: No prior. FINDINGS: BONES: Normal alignment. No listhesis. No fracture. DISC SPACES: Unremarkable. OTHER FINDINGS: None. IMPRESSION: Unremarkable radiographs of the lumbar spine.
[2016-07-01 12:10] LABS: BASO % 0.5 % (0.0-2.0); EOS # 0.1 K/uL (0.0-0.7); HEMATOCRIT 39.8 % (34.0-47.0); LYMPH # 1.4 K/uL (1.0-4.3); MEAN CELL VOLUME 84.9 fL (81.0-99.0); MEAN CORPUSCULAR HEMOGLOBIN 28.1 pg (27.0-31.0); MEAN CORPUSCULAR HGB CONC 33.1 g/dL (33.0-37.0); MEAN PLATELET VOLUME 11.8 fL (7.2-11.7); MONO # 0.5 K/uL (0.0-0.8); MONO % 5.7 % (0.0-10.0); NRBC % 0.1 % (0.0-2.0); RED CELL DISTRIBUTION WIDTH 14.2 % (11.5-14.5); WHITE BLOOD COUNT 8.7 K/uL (4.8-10.8)
[2016-07-01 12:21] LABS: CHLORIDE 96 mmol/L (98-107); POTASSIUM 4.6 mmol/L (3.6-5.2); SODIUM 134 mmol/L (132-148)
[2016-07-01 12:23] LABS: ALB/GLOB RATIO 0.9 (1.0-2.1); AST/SGOT 84 U/L (14-36); BILIRUBIN,TOTAL 0.6 mg/dL (0.2-1.3); CARBON DIOXIDE 28 mmol/L (22-30); GFR AFRICAN-AMERICAN > 60; TOTAL PROTEIN 8.5 g/dL (6.3-8.3)
[2016-07-01 12:24] LABS: ALKALINE PHOSPHATASE 80 U/L (38-126); ALT/SGPT 41 U/L (9-52); BLOOD UREA NITROGEN 14 mg/dL (7-17); CALCIUM 9.5 mg/dl (8.6-10.4); GLUCOSE,RANDOM 109 mg/dL (65-105); MAGNESIUM 2.2 mg/dL (1.6-2.3); PHOSPHOROUS 4.1 mg/dL (2.5-4.5)
--- NOTE | 2016-07-01 14:52 | CP.PCM.CON ---
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 The patient states that she does not know how long the discharge has been present. She notices it when she valsalvas prior to injecting opiates into her neck veins. The patient notes that the discharge is malodorous. The patient admits to having 2 sexual partners, but reports using condoms consistently when having intercourse. The patient notes that this has happened in the past. The patient states that metrogel has worked in the past. The patient denies vaginal pruritis. The patient also denies fever, chills, headache, chest pain, shortness of breath, abdominal pain, frequency/ urgency/dysuria, changes in bowel habits, and extremity paresthesias. OB History: - 1st age 17- miscarriage - 2nd age 19 (2009)- baby [place] 6[place] 9[place] [facility] [place] - 3rd age 20- elective at [facility] Menarche- 12 FDLMP- unknown (7 months ago last period) Menstrual Cycle- Irregular (formerly every 30 days with 7 day menstruation prior to IVDU) Last Pap- 2 years ago (reported normal)- all paps negative in past No prior mammo No prior cysts or fibroids Sexually Active- 2 partners Contraception- Condoms only no hormonal contraception No previous history of STIs PMH: thrombocytopenia, depression, suicidal ideation, hep C, substance abuse Meds: None Surgical: 2009 Allergy: Penicillin (hives), Cheese (hives) Family: DM and HLD Social: 50 bags of heroin daily injection into neck veins, 10 vials ($100 worth ) cocaine daily, 1ppd smoking x 11 years, occasional EtOH, 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 Whiteside Review of Systems - Review of Systems All systems: reviewed and no additional remarkable complaints except - Constitutional Constitutional: absent: Anorexia, Chills, Fatigue, Fever - EENT Eyes: absent: Blind Spots, Blurred Vision Ears: absent: Ear Pain, Tinnitus Nose/Mouth/Throat: absent: Nose Pain, Facial Pain, Neck Pain - Cardiovascular Cardiovascular: absent: Chest Pain, Lightheadedness, Palpitations - Respiratory Respiratory: absent: Cough, Dyspnea, Dyspnea on Exertion - Gastrointestinal Gastrointestinal: absent: Abdominal Pain, Constipation, Diarrhea, Nausea, Vomiting - Genitourinary Genitourinary: absent: Change in Urinary Stream, Difficulty Urinating, Dysuria, Hematuria, Pyuria, Urinary Incontinence, Urinary Frequency, Urinary Hesitance, Urinary Urgency - Reproductive: Female Reproductive:Female: Menses Variable, Dyspareunia, Vaginal Discharge, Vaginal Odor. absent: Abnormal Vaginal Bleeding, Genital Lesions, Genital Pruritis, Sexual Dysfunction, Vaginal Dryness, Vaginal Pruritis - Menstruation Menstruation: Menses Variable. absent: Normal Menses, Abnormal Vaginal Bleeding - Musculoskeletal Musculoskeletal: Myalgias (right leg pain). absent: Stiffness, Tingling - Integumentary Integumentary: absent: Lesions, Rash, Wounds - Neurological Neurological: absent: Frequent Falls, Headaches, Paresthesias, Sensory Deficit, Syncope, Tingling, Tremor, Vertigo, Weakness - Endocrine Endocrine: absent: Cold Intolorance, Heat Intolorance, Polydipsia, Polyphagia Past Patient History - Infectious Disease Hx of Infectious Diseases: None - Past Social History Smoking Status: Heavy Smoker > 10 Cigarettes Daily - CARDIAC Hx Hypertension: No - PULMONARY Hx Tuberculosis: No - NEUROLOGICAL Hx Seizures: Yes - HEENT Hx HEENT Problems: No - RENAL Hx Chronic Kidney Disease: No - ENDOCRINE/METABOLIC Hx Endocrine Disorders: No - HEMATOLOGICAL/ONCOLOGICAL Hx Anemia: Yes - INTEGUMENTARY Hx Dermatological Problems: No - MUSCULOSKELETAL/RHEUMATOLOGICAL Hx Musculoskeletal Disorders: No - GASTROINTESTINAL Hx Gastrointestinal Disorders: No - GENITOURINARY/GYNECOLOGICAL Hx Sexually Transmitted Disorders: No - PSYCHIATRIC Hx Substance Use: Yes - SURGICAL HISTORY Hx Surgeries: Yes Hx Section: Yes - ANESTHESIA Hx Anesthesia: Yes Hx Anesthesia Reactions: No Hx Malignant Hyperthermia: No Meds Allergies/Adverse Reactions: Allergies Allergy/AdvReac Type Severity Reaction Status Date / Time cheese AdvReac Intermediate RASH Verified 06/25/16 12:54 - Medications Medications: Current Medications Al Hydrox/Mg Hydrox/Simethicone (Maalox 30 Ml) 30 ml PO TID PRN PRN Reason: Indigestion / Heartburn Clonidine HCl (Catapres) 0.1 mg PO Q8 PRN PRN Reason: COWS Score More or Equal to 5 Cyclobenzaprine HCl (Flexeril) 10 mg PO Q6 PRN PRN Reason: Muscle spasm Last Admin: 06/30/16 04:43 Dose: 10 mg Diphenhydramine HCl (Benadryl) 25 mg PO HS PRN PRN Reason: Insomnia Last Admin: 06/30/16 21:20 Dose: 25 mg Famotidine (Pepcid) 20 mg PO BID [facility] Last Admin: 07/01/16 10:48 Dose: 20 mg Hydroxyzine HCl (Atarax) 25 mg PO Q4H PRN PRN Reason: Anxiety Last Admin: 07/01/16 10:51 Dose: 25 mg Ibuprofen (Motrin Tab) 600 mg PO Q6H PRN PRN Reason: Pain, moderate (4-7) Last Admin: 07/01/16 14:18 Dose: 600 mg [place] Carbonate ([place] Carbonate 300mg) 300 mg PO TID [facility] Last Admin: 07/01/16 10:47 Dose: 300 mg Loperamide HCl (Imodium) 2 mg PO Q8 PRN PRN Reason: Diarrhea Methadone HCl (Methadone) 5 mg PO Q24H [facility] PRN Reason: Taper Stop: 07/03/16 09:59 Last Admin: 07/01/16 10:48 Dose: 5 mg Multivitamins (Hexavitamin) 1 tab PO DAILY [facility] Last Admin: 07/01/16 10:47 Dose: 1 tab Nitrofurantoin Macrocrystals (Macrobid) 100 mg PO Q12H [facility] Stop: 07/04/16 22:00 Last Admin: 07/01/16 10:47 Dose: 100 mg Ondansetron HCl (Zofran Tab) 4 mg PO Q8 PRN PRN Reason: Nausea/Vomiting Last Admin: 06/30/16 18:43 Dose: 4 mg Trazodone HCl (Desyrel) 50 mg PO HS PRN PRN Reason: Insomnia Last Admin: 06/30/16 21:20 Dose: 50 mg Physical Exam - Constitutional Appears: Non-toxic, Older Than Stated Age - Head Exam Head Exam: ATRAUMATIC, NORMAL INSPECTION, NORMOCEPHALIC - Eye Exam Eye Exam: EOMI, Normal appearance Pupil Exam: NORMAL ACCOMODATION - ENT Exam ENT Exam: Mucous Membranes Moist - Neck Exam Neck exam: Positive for: Normal Inspection. Negative for: Lymphadenopathy - Respiratory Exam Respiratory Exam: Clear to Auscultation Bilateral, NORMAL BREATHING PATTERN. absent: Decreased Breath Sounds, Rales, Rhonchi, Wheezes - Cardiovascular Exam Cardiovascular Exam: REGULAR RHYTHM, RRR, +S1, +S2. absent: Diastolic murmur, Systolic Murmur - GI/Abdominal Exam GI & Abdominal Exam: Normal Bowel Sounds, Soft. absent: Distended, Firm, Guarding, Rebound, Rigid, Tenderness - Exam Speculum exam: Cervical Discharge, Erythema, Vaginal Discharge. absent: Foreign Body, Laceration, NORMAL SPECULUM EXAM, Vaginal Bleeding - Extremities Exam Extremities exam: Positive for: normal inspection, pedal pulses present - Back Exam Back exam: NORMAL INSPECTION - Neurological Exam Neurological exam: Alert, CN II-XII Intact, Oriented x3 - Skin Skin Exam: Dry, Intact, Normal Color, Warm Results - Vital Signs Recent Vital Signs: Last Vital Signs Temp 97.6 F 07/01/16 08:01 Pulse 93 H 07/01/16 08:01 Resp 18 07/01/16 08:01 BP 94/59 L 07/01/16 08:01 Pulse Ox 100 06/28/16 15:34 - Labs Result Diagrams: 07/01/16 11:59 07/01/16 11:59 Labs: Laboratory Results - last 24 hr 07/01/16 07/01/16 11:59 11:59 WBC 8.7 RBC 4.69 Hgb 13.2 Hct 39.8 MCV 84.9 MCH 28.1 MCHC 33.1 RDW 14.2 Plt Count 125 L D MPV 11.8 H Neut % (Auto) 76.8 H Lymph % (Auto) 16.0 L [place] % (Auto) 5.7 Eos % (Auto) 1.0 Baso % (Auto) 0.5 Neut # 6.7 Lymph # 1.4 Slope # 0.5 Eos # 0.1 Baso # 0.0 Sodium 134 Potassium 4.6 Chloride 96 L Carbon Dioxide 28 Anion Gap 15 BUN 14 Creatinine 0.7 Est GFR ( Amer) > 60 Est GFR (Non-Af Amer) > 60 Random Glucose 109 H Calcium 9.5 Phosphorus 4.1 Magnesium 2.2 Total Bilirubin 0.6 AST 84 H D ALT 41 Alkaline Phosphatase 80 Total Protein 8.5 H Albumin 4.1 Globulin 4.4 H Albumin/Globulin Ratio 0.9 L Assessment & Plan (1) Vaginal discharge Assessment and Plan: Clinically technical service representative of Bacterial Vaginosis cultures for gonorrhea and chlamydia were taken during speculum examination Urine for CG ordered as well In the setting of likely bacterial vaginosis, the patient will be treated empirically with Metronidazole 500mg PO BID x 7 days. A prescription has been placed in her chart to be filled on discharge and her antibiotic course to be continued as an outpatient. With the patient's inconsistent sexual history, the clinical suspicion for gonorrhea and chlamydia infection remains high. The cultures are pending. The patient will be empirically treated with Azithromycin 1g PO x1 and Rocephin 250mg IM x1. The patient will also be covered for mercy infection as well with a single dose of Diflucan 150mg PO. The patient was advised to discontinue douching and to wear cotton underwear as a means to prevent recurrence. She was advised to follow up with an FOAMING MACHINE OPERATOR physician of her choosing or at the clinic here upon discharge to further monitor her symptoms. Azithromycin 1g PO x 1 Metronidazole 500mg PO BID x 7 days Rocephin 250mg IM daily Diflucan 150mg PO x 1 Urine CG culture CG Culture from speculum exam Outpatient follow up with the [facility] ([facility] FOAMING MACHINE OPERATOR Clinic is recommended Case Discussed with Attending. Clark Baker PGY1 Status: Acute - Date & Time Date: 07/01/16 Time: 15:12
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
--- NOTE | 2016-07-01 22:17 | PCM.PYCHPN ---
Psychiatric Progress Note - Psychiatric Progress Note Patient seen today, length of contact: 15 min Patient Chief Complaint: i am feeling little better Problems Identified/Issues Discussed: Patient seen and evaluated, chart reviewed and discussed with the nurse. As per the staff, she remained irritable and agitated. Today pt reports a bit improvement in her racing of thoughts and flight of ideas. However, she still reports withdrawal symptoms including shakes, anxiety , nausea and sweating. And asked for more methadone. She is taking medication and denies any side effects. Pt was seen by medical doctor for leg pain and appropriate tests were ordered. Supportive therapy and psychoeducation were given Medication Change: Yes (Methadone taper) Medical Record Reviewed: Yes Mental Status Examination - Cognitive Function Orientation: Person, Place, Situation, Time Memory: Intact Attention: WNL Concentration: Poor Association: WNL Fund of Knowledge: Poor - Mood Mood: Depressed, Anxious - Affect Affect: Constricted - Formal Thought Process Formal Thought Process: No Impairment - Suicidal Ideation Suicidal Ideation: No - Homicidal Ideation Homicidal Ideation: No Goal/Treatment Plan - Goal/Treatment Plan Need for Continued Stay: Discharge may exacerbated symptoms, Severe functional impairment Progress Toward Problem(s) and Goals/Treatment Plan: Bipolar disorder MRE Mixed severe with psychotic features CBT Psychoeducation Supportive therapy, group therapy, individual therapy [place] 300 mg by mouth twice a day Neurontin 300 mg by mouth 3 times a day Trazodone 50 mg by mouth daily at bedtime Opioid use disorder severe CBT Psychoeducation Supportive therapy, individual therapy Use PR for abstinence Opioid withdrawal CBT Psychoeducation Supportive therapy, individual therapy Clonidine when necessary Methadone taper Cocaine use disorder severe CBT Psychoeducation Supportive therapy, individual therapy Use PR for abstinence Sedative/hypnotic use disorder severe CBT Psychoeducation Supportive therapy, individual therapy Use PR for abstinence Ativan 1 mg every 6 hours when necessary UTI Continue prescribed medications Monitor s/s - Smoking Cessation Smoking Cessation Initiated: No
[2016-07-02 08:54] LABS: BASO # 0.1 K/uL (0.0-0.2); BASO % 0.7 % (0.0-2.0); EOS # 0.1 K/uL (0.0-0.7); EOS % 1.9 % (0.0-4.0); HEMATOCRIT 40.1 % (34.0-47.0); LYMPH # 1.6 K/uL (1.0-4.3); LYMPH % 20.9 % (20.0-40.0); MEAN CELL VOLUME 84.7 fL (81.0-99.0); MEAN CORPUSCULAR HEMOGLOBIN 27.8 pg (27.0-31.0); MEAN CORPUSCULAR HGB CONC 32.8 g/dL (33.0-37.0); MEAN PLATELET VOLUME 11.7 fL (7.2-11.7); MONO # 0.4 K/uL (0.0-0.8); MONO % 5.6 % (0.0-10.0); RED CELL DISTRIBUTION WIDTH 14.1 % (11.5-14.5); WHITE BLOOD COUNT 7.9 K/uL (4.8-10.8)
[2016-07-02 09:03] LABS: CHLORIDE 100 mmol/L (98-107)
[2016-07-02 09:04] LABS: POTASSIUM 4.2 mmol/L (3.6-5.2); SODIUM 138 mmol/L (132-148)
[2016-07-02 09:06] LABS: GFR AFRICAN-AMERICAN > 60
[2016-07-02 09:07] LABS: ALB/GLOB RATIO 0.9 (1.0-2.1); ALKALINE PHOSPHATASE 77 U/L (38-126); ALT/SGPT 56 U/L (9-52); AST/SGOT 104 U/L (14-36); BILIRUBIN,TOTAL 0.6 mg/dL (0.2-1.3); BLOOD UREA NITROGEN 16 mg/dL (7-17); CARBON DIOXIDE 29 mmol/L (22-30); GLUCOSE,RANDOM 101 mg/dL (65-105); PHOSPHOROUS 3.7 mg/dL (2.5-4.5); TOTAL PROTEIN 8.4 g/dL (6.3-8.3)
[2016-07-02 09:08] LABS: CALCIUM 9.4 mg/dl (8.6-10.4); MAGNESIUM 2.3 mg/dL (1.6-2.3)
[2016-07-02] MEDS: Multiple Vitamins Tab PO SCH (09:47)
--- NOTE | 2016-07-02 10:25 | PCM.PYCHDC ---
Mental Status Examination - Mental Status Examination Orientation: Person, Place, Situation, Time Memory: Intact Mood: Neutral Affect: Constricted Speech: Soft Attention: WNL Concentration: WNL Association: WNL Fund of Knowledge: WNL Formal Thought Process: No Impairment Description of patient's judgement and insight: GOOD, FAIR Psychotic Thoughts and Behaviors: DENIES any AVH Suicidal Ideation: No Current Homicidal Ideation?: No Discharge Summary - Discharge Note Reason for Hospitalization: Patient is a 25 year old [place]ian female who presents with depression and suicidal ideation. She lives with her father. 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 Patient states she has a history of heroin use for 6 years; her last use was yesterday. She states she 20-30 bags of heroin IV in the morning, 5-10 bags of cocaine IV after that, and another 20-30 bags of heroin IV in the evening. She uses her neck and her arms to shoot up. She states she smokes 1 blunt a day, and has been smoking cigarettes for 7 years. 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 Patient states she is depressed, anxious, distressed, and has racing thoughts. She reports suicidal ideation but denies any homicidal ideation. She reports paranoia but denies any AV hallucinations. Patient also complains of right leg pain for 2 weeks making it difficult for her to stand and walk. She states she thinks it is sciatica, and has difficulty straightening out her right leg. PMH: thrombocytopenia PastPsychHx: was at [employer] 3 years ago- got kicked out for using cocaine FamilyHx: mother and father - DM Surgeries: 2009 Hospitalizations: none Medications: none Laboratory Data: Abnormal Lab Results 07/01/16 07/01/16 07/02/16 11:59 11:59 08:50 WBC 8.7 7.9 RBC 4.69 4.74 Hgb 13.2 13.2 Hct 39.8 40.1 MCV 84.9 84.7 MCH 28.1 27.8 MCHC 33.1 32.8 L RDW 14.2 14.1 Plt Count 125 L D 151 MPV 11.8 H 11.7 Neut % (Auto) 76.8 H 70.9 Lymph % (Auto) 16.0 L 20.9 [place] % (Auto) 5.7 5.6 Eos % (Auto) 1.0 1.9 Baso % (Auto) 0.5 0.7 Neut # 6.7 5.6 Lymph # 1.4 1.6 [place] # 0.5 0.4 Eos # 0.1 0.1 Baso # 0.0 0.1 Sodium 134 Potassium 4.6 Chloride 96 L Carbon Dioxide 28 Anion Gap 15 BUN 14 Creatinine 0.7 Est GFR ( Amer) > 60 Est GFR (Non-Af Amer) > 60 Random Glucose 109 H Calcium 9.5 Phosphorus 4.1 Magnesium 2.2 Total Bilirubin 0.6 AST 84 H D ALT 41 Alkaline Phosphatase 80 Total Protein 8.5 H Albumin 4.1 Globulin 4.4 H Albumin/Globulin Ratio 0.9 L 07/02/16 08:50 WBC RBC Hgb Hct MCV MCH MCHC RDW Plt Count MPV Neut % (Auto) Lymph % (Auto) [place] % (Auto) Eos % (Auto) Baso % (Auto) Neut # Lymph # [place] # Eos # Baso # Sodium 138 Potassium 4.2 Chloride 100 Carbon Dioxide 29 Anion Gap 13 BUN 16 Creatinine 0.7 Est GFR ( Amer) > 60 Est GFR (Non-Af Amer) > 60 Random Glucose 101 Calcium 9.4 Phosphorus 3.7 Magnesium 2.3 Total Bilirubin 0.6 AST 104 H D ALT 56 H D Alkaline Phosphatase 77 Total Protein 8.4 H Albumin 4.0 Globulin 4.4 H Albumin/Globulin Ratio 0.9 L Consultations:: List each consultation separately and include: 1. Reason for request. 2. Findings. 3. Follow-up Summary of Hospital Course include:: 1. Description of specific treatment plan utilized for patients during their course of treatmen. 2. Summarize the time- course for resolution of acute symptoms and/or regressed behaviors. 3. Describe issues identified and worked on during hospitalization. 4. Describe medication utilized. 5. Describe medical problems identified and treated. 6. Reassessment of suicide risk Summary of Hospital Course: During the course of her stay, patient (pt) started progressively improving and she no longer remained anxious, depressed and suicidal. Her mood was getting better and she started attending groups and meetings and started socializing. The doses of her medications were maximized and patient denied any feelings of hopelessness, helplessness, and worthlessness, denied any problem with the sleep or appetite, denied suicidal ideation or homicidal ideation. Pt denied any auditory or visual hallucinations. Patient reported improvement in her mood and tolerated these medications very well and denied any side effects. - Final Diagnosis (DSM 5) Condition upon Discharge: STABLE DSM 5: Bipolar disorder MRE Mixed severe with psychotic features Opioid use disorder severe Opioid withdrawal Cocaine use disorder severe Sedative/hypnotic use disorder severe Disposition: HOME/ ROUTINE Follow-up Treatment Plan: Education: Pt was educated and counseled about the risks and benefits of taking and not taking medications. Pt was educated and counseled about the risks of drinking and abusing drugs. Pt was educated and counseled to go to the ER or call 911 if pt develop suicidal ideation or homicidal ideation, worsening of symptoms or severe side effects of the meds. Prescriptions/Medication Reconciliation: Loretto Carbonate [Loretto Carbonate 300MG] 300 mg PO TID #90 cap traZODone [Desyrel] 50 mg PO HS PRN #30 tab PRN Reason: Insomnia - Smoking Cessation Smoking Cessation Medication prescribed: No - Antipsychotic Medications Pt discharged on 2 or more routine antipsychotic medications: No
--- NOTE | 2016-07-02 11:08 | VASCLAB ---
PROCEDURE: Lower Extremity Venous Duplex Exam. HISTORY: RLE weakness/pain PRIORS: None. TECHNIQUE: Bilateral common femoral, femoral, popliteal and posterior tibial, peroneal and great saphenous veins were evaluated. Flow was assessed with color Doppler, compressibility, assessment of phasic flow and augmentation response. Report prepared by Rayo Jolly, RBOOKS, RVT FINDINGS: RIGHT: 1. Common Femoral Vein: 1.1. Compressibility - Fully compressible: Thrombus - None : Flow - Phasic: Augmentation -Normal: Reflux - None. 2. Femoral Vein: 2.1. Compressibility - Fully compressible: Thrombus - None : Flow - Phasic: Augmentation -Normal: Reflux - None. 3. Popliteal Vein: 3.1. Compressibility - Fully compressible: Thrombus - None : Flow - Phasic: Augmentation -Normal: Reflux - None. 4. Posterior Tibial Vein: 4.1. Compressibility - Fully compressible: Thrombus - None: Flow - Phasic: Augmentation -Normal: Reflux - None. 5. Peroneal Vein: 5.1. Compressibility - Fully compressible: Thrombus - None: Flow - Phasic: Augmentation -Normal: Reflux - None. 6. Great Saphenous Vein: 6.1. Compressibility - Fully compressible: Thrombus - None: Flow - Phasic: Augmentation - Normal: Reflux - None. LEFT: 1. Common Femoral Vein: 1.1. Compressibility - Fully compressible: Thrombus - None: Flow - Phasic: Augmentation -Normal: Reflux - None. 2. Femoral Vein: 2.1. Compressibility - Fully compressible: Thrombus - None: Flow - Phasic: Augmentation -Normal: Reflux - None. 3. Popliteal Vein: 3.1. Compressibility - Fully compressible: Thrombus - None : Flow - Phasic: Augmentation -Normal: Reflux - None. 4. Posterior Tibial Vein: 4.1. Compressibility - Fully compressible: Thrombus - None: Flow - Phasic: Augmentation -Normal: Reflux - None. 5. Peroneal Vein: 5.1. Compressibility - Fully compressible: Thrombus - None: Flow - Phasic: Augmentation -Normal: Reflux - None. 6. Great Saphenous Vein: 6.1. Compressibility - Fully compressible: Thrombus - None: Flow - Phasic: Augmentation - Normal: Reflux - None. OTHER FINDINGS: Right: None significant. Left: None significant. IMPRESSION: Right: No evidence of deep or superficial vein thrombosis of the right lower extremity. Normal valve function noted of the right side. Left: No evidence of deep or superficial vein thrombosis of the left lower extremity. Normal valve function noted of the left side.
--- NOTE | 2016-07-02 11:49 | CP.PCM.PN ---
Addendum entered and electronically signed by Eunice Dixon 07/02/16 12:52: Please note: patient discharged as per psych. Recommend MRI as outpatient. Original Note: <Eunice Dixon - Last Filed: 07/02/16 12:05> Subjective - Date & Time of Evaluation Date of Evaluation: 07/02/16 Time of Evaluation: 07:30 - Subjective Subjective: PGY1 Medicine note for Dr. Bains Patient seen and examined at bedside. Patient eager to go home today and in good spirits. She reports her hip pain had resolved and she is able to ambulate without much pain. She denied numbness or tingling in her legs b/l and pain in her legs b/l. Patient continues to complain of some slight pain in her right groin. She denied headache, dizziness, chest pain, palpitations, SOB, cough, abdominal pain, nausea, vomiting, bowel/bladder complaints. She stated she still has some vaginal discharge. Objective - Vital Signs/Intake and Output Vital Signs (last 24 hours): Temp Pulse Resp BP Pulse Ox 97.6 F 101 H 18 108/68 100 07/01/16 08:01 07/01/16 16:09 07/01/16 08:01 07/01/16 16:09 06/28/16 15:34 - Labs Labs: 07/02/16 08:50 07/02/16 08:50 - Constitutional Appears: Non-toxic, No Acute Distress, Unkempt - Head Exam Head Exam: NORMAL INSPECTION - Eye Exam Eye Exam: Normal appearance. absent: Conjunctival injection, Scleral icterus - ENT Exam ENT Exam: Mucous Membranes Dry - Neck Exam Neck Exam: Full ROM. absent: Lymphadenopathy, Tenderness - Respiratory Exam Respiratory Exam: Clear to Ausculation Bilateral, NORMAL BREATHING PATTERN. absent: Accessory Muscle Use, Rales, Rhonchi, Wheezes - Cardiovascular Exam Cardiovascular Exam: REGULAR RHYTHM, RRR, +S1, +S2. absent: Murmur - GI/Abdominal Exam GI & Abdominal Exam: Soft, Normal Bowel Sounds. absent: Firm, Guarding, Rigid, Tenderness - Extremities Exam Extremities Exam: Normal Capillary Refill, Normal Inspection. absent: Pedal Edema, Tenderness - Back Exam Back Exam: NORMAL INSPECTION, tenderness (to palpation R lower back), vertebral tenderness (R lumbar). absent: CVA tenderness (L), CVA tenderness (R), rash noted - Neurological Exam Neurological Exam: Abnormal Gait, Alert, Awake, Oriented x3 - Psychiatric Exam Psychiatric exam: Normal Affect, Normal Mood - Skin Skin Exam: Dry, Intact, Normal Color, Warm Assessment and Plan - Assessment and Plan (Free Text) Assessment: 25 year old female PMHx of thrombocytopenia, depression, suicidal ideation, hep C, substance abuse presenting with R hip pain radiating to her leg Plan: R hip pain -Lumbar radiculopathy vs herniated disc vs sciatica vs hip fracture vs muscle strain vs neuropathy vs malingering -hip x-ray b/l: unremarkable -lumbar x-ray: unremarkable -sacrum & coccyx x-ray : unremarkable -venous dopplers: negative b/l -f/u MRI -Fall precaution -Flexeril 10mg po q6 prn muscle spasm -Neurontin 300mg po tid -Motrin 600mg po q6h prn pain mod -Neurology Dr. Garcia consulted- f/u recommendations UTI -Macrobid 100mg po q12 -UA +3 leuk esterase, +45 WBC, +19 RBC, +1 Protein Vaginal discharge -f/u GC/Chlamydia cultures -f/u HIV -f/u RPR -Nitroglycerin Distributor consult: f/u reccs Dr. Leigh Hep C -Manage outpatient Bipolar disorder with psychotic features -Managed as per psych Severe opioid use disorder -Managed as per psych Opioid withdrawal -Managed as per psych Severe cocaine use disorder -Managed as per psych Substance abuse -Managed as per psych PPX -Zofran 4mg po q8 prn nausea/vomiting -Ibuprofen 600mg po q6 prn pain mod -Pepcid 20mg po bid -multivitamins Plan discussed with Dr. Nara Dixon PGY1 <Marivel Bains V - Last Filed: 07/03/16 00:03> Objective - Vital Signs/Intake and Output Vital Signs (last 24 hours): Temp Pulse Resp BP Pulse Ox 97.8 F 91 H 19 103/68 100 07/02/16 10:15 07/02/16 10:15 07/02/16 10:15 07/02/16 10:15 06/28/16 15:34 - Labs Labs: 07/02/16 08:50 07/02/16 08:50 Attending/Attestation - Attestation I have personally seen and examined this patient.: Yes I have fully participated in the care of the patient.: Yes I have reviewed all pertinent clinical information, including history, physical exam and plan: Yes Notes (Text): Patient seen, examined and case discussed with day-time resident. Patient seen this morning on . Patient's gait appears improved compared to yesterday. Walking to and from in the hallway with ease, reporting she would like to go home. Patient asking about results from vaginal discharge collected by ob-grocery clerk checking, but not available at time my encounter with the patient. Patient awaiting pending MRI Patient's vaginal cultures note available at time of exam to discuss with patient. R hip pain -hip x-ray b/l: unremarkable -lumbar x-ray: unremarkable -sacrum & coccyx x-ray : unremarkable -venous dopplers: negative b/l -pending MRI -Fall precaution -Flexeril 10mg po q6 prn muscle spasm -Neurontin 300mg po tid -Motrin 600mg po q6h prn pain mod -Neurology Dr. Garcia consulted- UTI -Macrobid 100mg po q12 completed 4 days -UA +3 leuk esterase, +45 WBC, +19 RBC, +1 Protein -Reports dysuria is gone Vaginal discharge -f/u GC/Chlamydia cultures-->finalized negative result later in the day -f/u HIV -f/u RPR -Nitroglycerin Distributor consult: f/u reccs Dr. Leigh Hep C -Manage outpatient Bipolar disorder with psychotic features -Managed as per psych Severe opioid use disorder -Managed as per psych Opioid withdrawal -Managed as per psych Severe cocaine use disorder -Managed as per psych Substance abuse -Managed as per psych PPX -Zofran 4mg po q8 prn nausea/vomiting -Ibuprofen 600mg po q6 prn pain mod -Pepcid 20mg po bid -multivitamins
[2016-07-02 14:11] VITALS: BP 103/68; PULSE 91; RESP 19; TEMP 97.8
== END 2016-07-02 11:20 | disposition home or self-care (01) | DRG 430 ==
LOC: C.ER 11:18 → C.5E 15:05
PROVIDERS: ADMIT Psychiatry & Neurology Psychiatry; ATTEND Psychiatry & Neurology Psychiatry
DX: F31.63 Bipolar disorder, current episode mixed, severe, without psychotic features (principal); D69.6 Thrombocytopenia, unspecified; R45.851 Suicidal ideations; F10.239 Alcohol dependence with withdrawal, unspecified; B19.20 Unspecified viral hepatitis C without hepatic coma; N39.0 Urinary tract infection, site not specified; F11.23 Opioid dependence with withdrawal; F14.20 Cocaine dependence, uncomplicated; I10 Essential (primary) hypertension; M54.31 Sciatica, right side; F17.210 Nicotine dependence, cigarettes, uncomplicated; N76.0 Acute vaginitis; F41.9 Anxiety disorder, unspecified

== ENCOUNTER 2016-07-04 12:43 | Emergency (ER) | payer MEDICAID, OTHER ==
[2016-07-04 12:56] VITALS: BMI 20.7
[2016-07-04] MEDS ORDERED: Naproxen 550 mg Tab PO STA (13:40)
[2016-07-04] MEDS ORDERED: Naproxen 550 mg Tab PO ONE (13:46)
--- NOTE | 2016-07-04 13:47 | C.PDOC ---
History Of Present Illness Patient is a 25 y/o female, with history of heroin abuse (recently discharged from detox unit), that presents to the ED for evaluation of persistent right lower back pain radiating down to right leg for the past 2 weeks. Pt states she had this pain since her previous admission, and has been using heroin. Patient has been evaluated by in-patient neurologist with negative work up,including xr and ultrasound. Pt was advised to follow up with outpatient services for suspected sciatica, but did not follow up. Otherwise, denies any new trauma, injury, urinary symptoms, numbness/weakness, fever, or any other associated symptoms at this time. pt reports continued heroin use after d/c from detox unit. Time Seen by Provider: 07/04/16 13:25 Chief Complaint (Nursing): Lower Extremity Problem/Injury History Per: Patient History/Exam Limitations: no limitations Onset/Duration Of Symptoms: Days Current Symptoms Are (Timing): Still Present Recent travel outside of the [place]: No Additional History Per: Patient Past Medical History Reviewed: Historical Data, Nursing Documentation, Vital Signs Vital Signs: Last Vital Signs Temp 98.6 F 07/04/16 15:35 Pulse 74 07/04/16 15:35 Resp 18 07/04/16 15:35 BP 116/74 07/04/16 15:35 Pulse Ox 100 07/12/16 14:38 - Medical History PMH: Anemia, Anxiety, Bipolar Disorder, Depression, Seizures Denies: Diabetes, Hepatitis, HIV, HTN, Chronic Kidney Disease, Sexually Transmitted Disease - [facility] Procedures DETOXIFICATION SERVICES FOR SUBSTANCE ABUSE TREATMENT (10/17/15) GROUP PSYCHOTHERAPY (10/17/15) IMMOBILIZ/WOUND ATTN NEC (10/18/01) INJECT/INFUSE ELECTROLYT (06/02/12) INJECT/INFUSE NEC (06/02/12) MEDICATION MANAGEMENT (10/17/15) MEDS MGMT FOR SUBSTANCE ABUSE TREATMENT, OTH REPL MED (10/17/15) Family History: States: Unknown Family Hx - Social History Hx Tobacco Use: Yes Hx Alcohol Use: No Hx Substance Use: Yes - Immunization History Hx Tetanus Toxoid Vaccination: No Hx Influenza Vaccination: No Hx Pneumococcal Vaccination: No Review Of Systems Except As Marked, All Systems Reviewed And Found Negative. Constitutional: Negative for: Fever, Chills Gastrointestinal: Negative for: Nausea, Vomiting Genitourinary: Negative for: Dysuria, Frequency, Incontinence, Hematuria Musculoskeletal: Positive for: Back Pain (right lower), Leg Pain (right) Neurological: Negative for: Weakness, Numbness Physical Exam - Physical Exam Appears: Non-toxic, No Acute Distress, Other (eating in bed, comfortable) Skin: Normal Color, Warm, Dry Head: Atraumatic, Normacephalic Eye(s): bilateral: Normal Inspection, EOMI Nose: Normal Oral Mucosa: Moist Tongue: Normal Appearing Lips: Normal Appearing Neck: Normal ROM, No Midline Cervical Tenderness, No Paracervical Tenderness, Supple Chest: Symmetrical, No Tenderness Cardiovascular: Rhythm Regular, No Murmur Respiratory: Normal Breath Sounds, No Rales, No Rhonchi, No Wheezing Gastrointestinal/Abdominal: Soft, No Tenderness, No Guarding, No Rebound Back: No CVA Tenderness, No Vertebral Tenderness, Muscle Spasm (right), Paraspinal Tenderness (right), Straight Leg Raising (right leg), No Other (no saddle anesthesia) Extremity: Normal ROM, No Tenderness, Capillary Refill (< 2 sec.), No Deformity , No Swelling Extremity: Bilateral: Atraumatic, Normal Color And Temperature, Normal ROM Pulses: Left Dorsalis Pedis: Normal, Right Dorsalis Pedis: Normal Neurological/Psych: Oriented x3, Normal Speech, Normal Cognition, Normal Motor ( 5/5 bl lower extr), Normal Sensation, Other (able to ambulate, mild difficulty 2 /2 pain) ED Course And Treatment O2 Sat by Pulse Oximetry: 100 (on RA) Pulse Ox Interpretation: Normal Progress Note: Urinalysis ordered and reviewed. Patient was given Naproxen, and Flexeril in the ER. Medical Decision Making Medical Decision Making: pt with suspected sciatica vs msk pain, already seen inpt by neuro x 2 weeks of pain. no clinical concern for cauda equina, or cord compression, no saddle anesthesia. epidural abscess also less likley, given no fever, 2 weeks of pain , no leukocytosis on d/c 2 days ago. . neuro intact w/o focal deficit. already eval by neuro/inpatient medicine, recommmend outpt mri. pt given toradol im, reports pain improved. now ambulatory. ucg neg, pt with neg blood work 3 days ago. pt seen ambulatory with mild discomfort. later returned just after discharge to advise toradol helped. 830pm able to reach father for followup, as patient unavailable.. advised father to inform pt to return to ER for repeat eval if symptoms not improving 07/05: spoke to mother to request pt to return to er for repeat eval if symptoms not improving. advises will notify daughter, as she is not currently available. Disposition - Disposition Disposition: HOME/ ROUTINE Disposition Time: 07:00 Condition: STABLE Prescriptions: Cyclobenzaprine [Flexeril] 10 mg PO TID PRN #21 tab PRN Reason: Muscle Spasm Naproxen [Naprosyn] 500 mg PO BID PRN #14 tab PRN Reason: Pain, Mild (1-3) Instructions: Sciatica (ED) - Clinical Impression Clinical Impression: Back pain, Leg pain - Scribe Statement The provider has reviewed the documentation as recorded by the Kaylah James Provider Attestation: All medical record entries made by the Elmeribtessie were at my direction and personally dictated by me. I have reviewed the chart and agree that the record accurately reflects my personal performance of the history, physical exam, medical decision making, and the department course for this patient. I have also personally directed, reviewed, and agree with the discharge instructions and disposition.
[2016-07-04 15:39] VITALS: BP 116/74; PULSE 74; RESP 18; TEMP 98.6
[2016-07-04 21:00] VITALS: O2SAT 100
== END 2016-07-04 15:35 | disposition home or self-care (01) ==
LOC: C.ER 12:43
DX: M54.9 Dorsalgia, unspecified (principal); M79.604 Pain in right leg
CPT/HCPCS: 84703; 96372; 99285; J1885

== ENCOUNTER 2017-04-24 17:35 | Inpatient (IN) | payer MEDICAID, OTHER ==
[2017-04-24 17:36] VITALS: BMI 21.1
--- NOTE | 2017-04-24 18:31 | C.PDOC ---
History Of Present Illness 26-year-old female, PMHx includes substance abuse, presents to the emergency department with complaints of depression. Patient has no plan. Denies homicidal ideation. No other complaints at this time. Time Seen by Provider: 04/24/17 17:55 Chief Complaint (Nursing): Psychiatric Evaluation History Per: Patient History/Exam Limitations: no limitations Past Medical History Reviewed: Historical Data, Nursing Documentation, Vital Signs Vital Signs: Last Vital Signs Temp 98.5 F 04/24/17 20:30 Pulse 79 04/24/17 21:58 Resp 18 04/24/17 21:58 BP 107/69 04/24/17 20:30 Pulse Ox 100 04/24/17 20:30 - Medical History PMH: Anemia, Anxiety, Bipolar Disorder, Depression, Fractures (r hip), Seizures - [facility] Procedures DETOXIFICATION SERVICES FOR SUBSTANCE ABUSE TREATMENT (10/17/15) GROUP PSYCHOTHERAPY (10/17/15) IMMOBILIZ/WOUND ATTN NEC (10/18/01) INJECT/INFUSE ELECTROLYT (06/02/12) INJECT/INFUSE NEC (06/02/12) MEDICATION MANAGEMENT (10/17/15) MEDS MGMT FOR SUBSTANCE ABUSE TREATMENT, OTH REPL MED (10/17/15) REPOSITION RIGHT UPPER FEMUR WITH INT FIX, PERC APPROACH (07/12/16) Family History: States: No Known Family Hx - Social History Hx Tobacco Use: Yes Hx Alcohol Use: No Hx Substance Use: Yes - Immunization History Hx Tetanus Toxoid Vaccination: Yes Hx Influenza Vaccination: Yes Hx Pneumococcal Vaccination: No Review Of Systems Constitutional: Negative for: Fever, Chills Respiratory: Negative for: Cough, Shortness of Breath Gastrointestinal: Negative for: Vomiting Neurological: Negative for: Weakness, Numbness Psych: Positive for: Depression. Negative for: Psychosis, Suicidal ideation, Withdrawal Physical Exam - Physical Exam Appears: Non-toxic, No Acute Distress, Other (no signs or symptoms of acute withdrawal) Skin: Normal Color, Warm, Dry, No Rash Head: Normacephalic Eye(s): bilateral: PERRL Nose: Normal Oral Mucosa: Moist Lips: Normal Appearing Neck: Normal ROM Chest: Symmetrical Cardiovascular: Rhythm Regular, No Murmur Respiratory: No Decreased Breath Sounds, No Accessory Muscle Use Extremity: Normal ROM, No Deformity, No Swelling Neurological/Psych: Oriented x3, Normal Speech ED Course And Treatment - Laboratory Results Result Diagrams: 04/24/17 19:02 04/24/17 19:02 O2 Sat by Pulse Oximetry: 100 (RA) Pulse Ox Interpretation: Normal Medical Decision Making Medical Decision Makin:25 - Patient is medically cleared 20:10- Patient is accepted to the Hospital under the service or Dr. Nunez Disposition - Disposition Disposition: HOSPITALIZED Disposition Time: 22:00 Condition: STABLE - Clinical Impression Clinical Impression: Bipolar 1 disorder - Scribe Statement The provider has reviewed the documentation as recorded by the Scribe (Ceci Sultana) All medical record entries made by the Scribe were at my direction and personally dictated by me. I have reviewed the chart and agree that the record accurately reflects my personal performance of the history, physical exam, medical decision making, and the department course for this patient. I have also personally directed, reviewed, and agree with the discharge instructions and disposition. Decision To Admit - Pt Status Changed To: Hospital Disposition Of: Inpatient - Admit Certification Admit to Inpatient:: After my assessment, the patient will require hospitalization for at least two midnights. This is because of the severity of symptoms shown, intensity of services needed, and/or the medical risk in this patient being treated as an outpatient. - InPatient: Physician Admission Certification: I certify that this patient requires 2 or more midnights of care for the following reason:: needs inpt - . Bed Request Type: Psychiatry Admitting Physician: Wyatt Nunez Patient Diagnosis: Bipolar 1 disorder
[2017-04-24 19:05] LABS: EOS % 0.4 % (0.0-4.0); LYMPH # 1.6 K/uL (1.0-4.3); MONO # 0.3 K/uL (0.0-0.8); NRBC % 0.1 % (0.0-2.0); RBC 4.84 Mil/uL (3.80-5.20)
[2017-04-24 19:16] LABS: ACETAMINOPHEN < 10.0 ug/mL (10.0-30.0); BASO % 0.6 % (0.0-2.0); HEMOGLOBIN 12.5 g/dL (11.0-16.0); LYMPH % 31.9 % (20.0-40.0); MEAN CELL VOLUME 78.4 fL (81.0-99.0); MEAN CORPUSCULAR HEMOGLOBIN 25.8 pg (27.0-31.0); MEAN CORPUSCULAR HGB CONC 32.8 g/dL (33.0-37.0); MEAN PLATELET VOLUME 10.2 fL (7.2-11.7); MONO % 5.9 % (0.0-10.0); NEUT % 61.2 % (50.0-75.0); RED CELL DISTRIBUTION WIDTH 15.4 % (11.5-14.5); SALICYLATE < 1.0 mg/dL 1
[2017-04-24 19:17] LABS: ALB/GLOB RATIO 0.8 (1.0-2.1); ALBUMIN 4.6 g/dL (3.5-5.0); ALT/SGPT 35 U/L (9-52); AST/SGOT 36 U/L (14-36); BLOOD UREA NITROGEN 12 mg/dL (7-17); CALCIUM 9.8 mg/dl (8.6-10.4); GFR AFRICAN-AMERICAN > 60; GFR NON-AFRICAN AMERICAN > 60
[2017-04-24 19:22] LABS: HCG,QUALITATIVE URINE NEGATIVE (NEGATIVE); SQUAMOUS EPITHIAL 1 /hpf (0-5); URINE AMORPHOUS SEDIMENT FEW /ul (<OCC); URINE BACTERIA RARE (<OCC); URINE BILIRUBIN NEGATIVE (NEGATIVE); URINE BLOOD NEGATIVE (NEGATIVE); URINE CLARITY Hazy (Clear); URINE COLOR Yellow (YELLOW); URINE GLUCOSE (UA) NORMAL (Normal); URINE LEUKOCYTE ESTERASE NEG Leu/uL (Negative); URINE PROTEIN NEGATIVE (NEGATIVE)
[2017-04-24 19:31] LABS: BARBITURATES, UR NEGATIVE (NEGATIVE); BENZODIAZEPINES, UR NEGATIVE (NEGATIVE); PHENCYCLIDINE, UR NEGATIVE (NEGATIVE)
[2017-04-24 19:32] LABS: OPIATES, UR POSITIVE (NEGATIVE)
--- NOTE | 2017-04-24 21:52 | PCM.BM ---
<Melissa Khanan - Last Filed: 04/24/17 21:50> Treatment Plan Problems - Problems identified on initial assessmt Depression Date Initiated: 04/24/17 Time Initiated: 21:50 Assessment reference: NA Status: Active Comment: long hx of heroin abuse Treatment assets and liabiliti Patient Assests: adapts well, cooperative, self-reliant, ADL independent Patient Liabilities: substance abuse - Milieu Protocol Maintain good personal hygiene: daily Encourage regular showers, daily Remind patient to perform daily oral care Conduct patient checks and document Observation sheet: Q15 minutes Maintain personal safety: every shift Educate patient to report safety concerns to staff, every shift Monitor environment for contraband/sharps Medication safety: Monitor for expected outcome, potential side effects: every shift, Assess barriers to learning: every shift, Assess readiness for medication education: every shift <Gwendolyn Conner - Last Filed: 04/25/17 11:11> Family Contact Family involvement: Famliy/SO not involved - Goals for Treatment Patient goals for treatment: "I want to go to an IOP program." Discharge/Continuing Care - Education Needs Education Needs: Patient Medication, Patient Coping Skills - Discharge Discharge Criteria: Tolerates medication w/o severe side effects, Reduction of target symptoms Discharge to:: Home - Treatment Team Participation Discussed with Family/SO: No Was Patient/Family/SO present at Treatment Team Meeting: Yes
[2017-04-25 09:05] VITALS: O2SAT 99
--- NOTE | 2017-04-25 10:12 | PCM.PSYCH ---
Initial Psychiatric Evaluation - Initial Psychiatric Evaluation Type of Admission: Voluntary Legal Status: Capacity Current Medications: Active Medications Generic Name Dose Route Start Last Admin Trade Name Freq PRN Reason Stop Dose Admin Clonidine HCl 0.1 mg 04/24/17 21:36 Catapres PO Q8 PRN COWS Score More or Equal to 5 Gabapentin 300 mg 04/25/17 10:00 04/25/17 09:08 Neurontin PO 300 mg BID TERA Administration Hydroxyzine HCl 50 mg 04/24/17 21:37 04/24/17 23:32 Atarax PO 50 mg Q6H PRN Administration Anxiety Ibuprofen 600 mg 04/24/17 21:37 Motrin Tab PO Q6H PRN Pain, moderate (4-7) Loperamide HCl 2 mg 04/24/17 21:36 Imodium PO Q8 PRN Diarrhea Methadone HCl 15 mg 04/25/17 10:00 04/25/17 09:07 Methadone PO 04/29/17 09:59 15 mg Q24H TERA Administration Taper Ondansetron HCl 4 mg 04/24/17 21:36 04/25/17 09:06 Zofran Tab PO 4 mg Q8 PRN Administration Nausea/Vomiting Quetiapine Fumarate 100 mg 04/24/17 22:00 04/24/17 21:55 Seroquel PO 100 mg HS TERA Administration Sertraline HCl 50 mg 04/25/17 10:00 04/25/17 09:08 Zoloft PO 50 mg DAILY TERA Administration Past Psychiatric History - Past Psychiatric History Previous Treatment History: Inpatient Pertinent Medical Hx (Current Medical&Sleep Prob, Allergies): Allergies Allergy/AdvReac Type Severity Reaction Status Date / Time Penicillins Allergy RASH Verified 04/24/17 17:40 cheese AdvReac Intermediate RASH Verified 04/24/17 17:40 No Known Home Med 04/24/17 Review of Systems - Review of Systems All systems: reviewed and no additional remarkable complaints except - Psychiatric Psychiatric: Anxiety, Irritability, Suicidal Ideation Mental Status Examination - Personal Presentation Personal Presentation: Looks stated age - Affect Affect: Constricted, Depressed - Motor Activity Motor Activity: Psychomotor Agitation - Reliability in Providing Information Reliability in Providing Information: Fair - Speech Speech: Organized - Mood Mood: Depressed, Anxious - Formal Thought Process Formal Thought Process: Flight of ideas, Circumstantial - Obsessions/Compulsions Obsessions: No Compulsions: No - Cognitive Functions Orientation: Person, Place, Situation, Time Sensorium: Alert Attention/Concentration: Attentive Abstract Thinking: [place] Estimate of Intelligence: Below average Judgement: Imparied, as evidence by: Poor judgement, Imparied, as evidence by: Lack of insight into illness - Risk Risk: Suicidal, Withdrawal, Diminished functioning - Strength & Assets Inventory Strength & Assets Inventory: Family support, Life experience - Limitations Limitations: Living alone DSM 5 DX - DSM 5 DSM 5 Diagnosis: Bipolar disorder mixed severe without psychotic features Cocaine use disorder moderate Opioid use disorder severe Opioid withdrawal Alcohol use disorder severe - Recommended/Plan of Treatment Treatment Recommendations and Plan of Treatment: Bipolar disorder mixed severe without psychotic features CBT Psychoeducation Supportive therapy, group therapy, individual therapy Olanzapine 5 g by mouth twice a day Neurontin 100 mg by mouth 3 times a day Trazodone 50 mg by mouth daily at bedtime Cocaine use disorder moderate Monitor signs and symptoms Use [place] for abstinence Opioid use disorder severe CBT Psychoeducation Supportive therapy, individual therapy Use [place] for abstinence Opioid withdrawal CBT Psychoeducation Supportive therapy, individual therapy Clonidine when necessary Start methadone taper Start prn meds Alcohol use disorder severe CBT Psychoeducation Supportive therapy, individual therapy Use [place] for abstinence
--- NOTE | 2017-04-27 00:21 | PCM.PYCHPN ---
Mental Status Examination - Cognitive Function Orientation: Person, Place, Situation, Time - Mood Mood: Depressed, Anxious - Affect Affect: Constricted, Depressed - Formal Thought Process Formal Thought Process: Flight of ideas, Circumstantial - Homicidal Ideation Homicidal Ideation: No Goal/Treatment Plan - Goal/Treatment Plan Progress Toward Problem(s) and Goals/Treatment Plan: Bipolar disorder mixed severe without psychotic features CBT Psychoeducation Supportive therapy, group therapy, individual therapy Olanzapine 5 g by mouth twice a day Neurontin 100 mg by mouth 3 times a day Trazodone 50 mg by mouth daily at bedtime Cocaine use disorder moderate Monitor signs and symptoms Use [place] for abstinence Opioid use disorder severe CBT Psychoeducation Supportive therapy, individual therapy Use ME for abstinence Opioid withdrawal CBT Psychoeducation Supportive therapy, individual therapy Clonidine when necessary Start methadone taper Start prn meds Alcohol use disorder severe CBT Psychoeducation Supportive therapy, individual therapy Use [place] for abstinence
[2017-04-27 06:42] VITALS: BP 149/94; PULSE 100; RESP 20; TEMP 98
--- NOTE | 2017-04-27 10:08 | PCM.PYCHDC ---
Mental Status Examination - Mental Status Examination Orientation: Person, Place, Situation, Time Memory: Intact Mood: Neutral Affect: Constricted Speech: Soft Attention: WNL Concentration: WNL Association: WNL Fund of Knowledge: WNL Formal Thought Process: No Impairment Description of patient's judgement and insight: good, fair Psychotic Thoughts and Behaviors: denies any AVH Suicidal Ideation: No Current Homicidal Ideation?: No Discharge Summary - Discharge Note Consultations:: List each consultation separately and include: 1. Reason for request. 2. Findings. 3. Follow-up Summary of Hospital Course include:: 1. Description of specific treatment plan utilized for patients during their course of treatmen. 2. Summarize the time- course for resolution of acute symptoms and/or regressed behaviors. 3. Describe issues identified and worked on during hospitalization. 4. Describe medication utilized. 5. Describe medical problems identified and treated. 6. Reassessment of suicide risk - Final Diagnosis (DSM 5) Condition upon Discharge: STABLE DSM 5: Bipolar disorder mixed severe without psychotic features Cocaine use disorder moderate Opioid use disorder severe Opioid withdrawal Alcohol use disorder severe Disposition: HOME/ ROUTINE Follow-up Treatment Plan: Bipolar disorder mixed severe without psychotic features CBT Psychoeducation Supportive therapy, group therapy, individual therapy Olanzapine 5 g by mouth twice a day Neurontin 100 mg by mouth 3 times a day Trazodone 50 mg by mouth daily at bedtime Cocaine use disorder moderate Monitor signs and symptoms Use [place] for abstinence Opioid use disorder severe CBT Psychoeducation Supportive therapy, individual therapy Use [place] for abstinence Opioid withdrawal CBT Psychoeducation Supportive therapy, individual therapy Clonidine when necessary Start methadone taper Start prn meds Alcohol use disorder severe CBT Psychoeducation Supportive therapy, individual therapy Use [place] for abstinence Prescriptions/Medication Reconciliation: Gabapentin [Neurontin] 300 mg PO BID 14 Days #30 cap hydrOXYzine HCl [Atarax] 50 mg PO BID PRN 14 Days #14 tab PRN Reason: Anxiety QUEtiapine [Seroquel] 100 mg PO HS 14 Days #30 tab Sertraline [Zoloft] 50 mg PO DAILY #14 tab
== END 2017-04-27 10:40 | disposition home or self-care (01) | DRG 745 ==
LOC: C.ER 17:35 → C.5E 20:04
PROVIDERS: ADMIT Psychiatry & Neurology Psychiatry; ATTEND Psychiatry & Neurology Psychiatry
PROC: HZ2ZZZZ Detoxification Services for Substance Abuse Treatment (ICD-10-PCS; principal; 2017-04-24)
PROC: HZ52ZZZ Individual Psychotherapy for Substance Abuse Treatment, Cognitive-Behavioral (ICD-10-PCS; 2017-04-24)
PROC: HZ42ZZZ Group Counseling for Substance Abuse Treatment, Cognitive-Behavioral (ICD-10-PCS; 2017-04-24)
PROC: HZ59ZZZ Individual Psychotherapy for Substance Abuse Treatment, Supportive (ICD-10-PCS; 2017-04-24)
PROC: HZ56ZZZ Individual Psychotherapy for Substance Abuse Treatment, Psychoeducation (ICD-10-PCS; 2017-04-24)
PROC: HZ46ZZZ Group Counseling for Substance Abuse Treatment, Psychoeducation (ICD-10-PCS; 2017-04-24)
DX: F11.23 Opioid dependence with withdrawal (principal); F31.63 Bipolar disorder, current episode mixed, severe, without psychotic features; F10.20 Alcohol dependence, uncomplicated; F14.90 Cocaine use, unspecified, uncomplicated; Y90.0 Blood alcohol level of less than 20 mg/100 ml; F41.9 Anxiety disorder, unspecified

== ENCOUNTER 2017-09-05 19:47 | Emergency (ER) | payer MEDICAID, OTHER ==
[2017-09-05 19:48] VITALS: BMI 21.9
[2017-09-05 20:09] VITALS: BP 110/74; PULSE 85; RESP 16; TEMP 97.8; O2SAT 100
--- NOTE | 2017-09-05 20:45 | C.PDOC ---
History Of Present Illness Patient presented to ED stating she is depressed. She admits to using heroin and drinking alcohol. Patient also noted she stopped taking her medication. Denies any other physical complaints. Time Seen by Provider: 09/05/17 20:45 Chief Complaint (Nursing): Psychiatric Evaluation History Per: Patient History/Exam Limitations: no limitations Onset/Duration Of Symptoms: Days Current Symptoms Are (Timing): Still Present Modifying Factor(s): Alcohol, Narcotics (heroin) Associated Symptoms: Depression Recent travel outside of the [place]: No Past Medical History Reviewed: Historical Data, Nursing Documentation, Vital Signs Vital Signs: Last Vital Signs Temp 97.8 F 09/05/17 20:04 Pulse 85 09/05/17 20:04 Resp 16 09/05/17 20:04 BP 110/74 09/05/17 20:04 Pulse Ox 100 09/05/17 21:58 - Medical History PMH: Anemia, Anxiety, Bipolar Disorder, Depression, Fractures (r hip), Hepatitis (Hepatitis C), Seizures Denies: Diabetes (Patient denied), HIV (Patient denied), HTN (Patient denied) , Chronic Kidney Disease, Sexually Transmitted Disease (Patient denied) Surgical History: No Surg Hx - [facility] Procedures DETOXIFICATION SERVICES FOR SUBSTANCE ABUSE TREATMENT (04/24/17) GROUP FLOOR CASHIER FOR SUBSTANCE ABUSE TREATMENT, PSYCHOEDUCATION (04/24/17) GROUP FLOOR CASHIER FOR SUBSTANCE ABUSE, COGNITIVE BEHAVIORAL (04/24/17) GROUP PSYCHOTHERAPY (10/17/15) IMMOBILIZ/WOUND ATTN NEC (10/18/01) INDIV PSYCHOTHERAPY FOR SUBSTANCE ABUSE TREATMENT, SUPPORT (04/24/17) INDIV PSYCHOTHERAPY FOR SUBSTANCE ABUSE, COGNITIV BEHAVIORAL (04/24/17) INDIV PSYCHOTHERAPY FOR SUBSTANCE ABUSE, PSYCHOEDUCATION (04/24/17) INJECT/INFUSE ELECTROLYT (06/02/12) INJECT/INFUSE NEC (06/02/12) MEDICATION MANAGEMENT (10/17/15) MEDS MGMT FOR SUBSTANCE ABUSE TREATMENT, OTH REPL MED (10/17/15) REPOSITION RIGHT UPPER FEMUR WITH INT FIX, PERC APPROACH (07/12/16) Family History: States: No Known Family Hx - Social History Hx Tobacco Use: Yes Hx Alcohol Use: Yes Hx Substance Use: Yes - Immunization History Hx Tetanus Toxoid Vaccination: Yes Hx Influenza Vaccination: Yes Hx Pneumococcal Vaccination: No Review Of Systems Constitutional: Negative for: Fever, Weakness Cardiovascular: Negative for: Chest Pain Respiratory: Negative for: Shortness of Breath, Wheezing Gastrointestinal: Negative for: Nausea, Vomiting Neurological: Negative for: Weakness, Numbness Psych: Positive for: Depression Physical Exam - Physical Exam Appears: Non-toxic Skin: Warm, Dry Head: Normacephalic Eye(s): bilateral: Normal Inspection Oral Mucosa: Moist Neck: Trachea Midline, Supple Chest: Symmetrical Cardiovascular: Rhythm Regular Respiratory: No Rales, No Rhonchi, No Wheezing Gastrointestinal/Abdominal: Soft, No Tenderness, No Distention Neurological/Psych: Oriented x3 Gait: Steady ED Course And Treatment O2 Sat by Pulse Oximetry: 100 (RA) Pulse Ox Interpretation: Normal Progress Note: Pt was cleared for discharge by dr Nunez. Went to discuss with the patient, but pt had eloped Disposition Counseled Patient/Family Regarding: Studies Performed, Diagnosis, Need For Followup - Disposition Referrals: Sarah Whiteside MD [Non-Staff] - Disposition: ELOPEMENT - ER ONLY Disposition Time: 20:45 Condition: FAIR Instructions: Depression, Adult (DC), Bipolar Disorder (DC) Forms: [facility] (Uzbek) - Clinical Impression Clinical Impression: Manic bipolar I disorder, Depression - Scribe Statement The provider has reviewed the documentation as recorded by the Kaylah Rollins Rao Provider Attestation: All medical record entries made by the Kaylah were at my direction and personally dictated by me. I have reviewed the chart and agree that the record accurately reflects my personal performance of the history, physical exam, medical decision making, and the department course for this patient. I have also personally directed, reviewed, and agree with the discharge instructions and disposition.
== END 2017-09-05 20:45 | disposition left against medical advice (07) ==
LOC: C.ER 19:47
DX: F31.9 Bipolar disorder, unspecified (principal)

== ENCOUNTER 2017-09-07 22:34 | Inpatient (IN) | payer MEDICAID, OTHER ==
[2017-09-07 22:35] VITALS: BMI 21.9
[2017-09-07 23:37] LABS: BASO % 0.7 % (0.0-2.0); EOS % 0.6 % (0.0-4.0); HEMOGLOBIN 10.6 g/dL (11.0-16.0); LYMPH # 1.7 K/uL (1.0-4.3); LYMPH % 25.1 % (20.0-40.0); MEAN CELL VOLUME 77.6 fL (81.0-99.0); MEAN CORPUSCULAR HEMOGLOBIN 25.8 pg (27.0-31.0); MEAN CORPUSCULAR HGB CONC 33.3 g/dL (33.0-37.0); MEAN PLATELET VOLUME 10.6 fL (7.2-11.7); MONO # 0.5 K/uL (0.0-0.8); MONO % 6.9 % (0.0-10.0); NEUT # 4.4 K/uL (1.8-7.0); NEUT % 66.7 % (50.0-75.0); RBC 4.1 Mil/uL (3.80-5.20); RED CELL DISTRIBUTION WIDTH 15.2 % (11.5-14.5); WHITE BLOOD COUNT 6.7 K/uL (4.8-10.8)
[2017-09-07 23:55] LABS: ALB/GLOB RATIO 0.9 (1.0-2.1); ALT/SGPT 31 U/L (9-52); AST/SGOT 35 U/L (14-36); BLOOD UREA NITROGEN 14 mg/dL (7-17); CALCIUM 8.8 mg/dl (8.6-10.4); GFR AFRICAN-AMERICAN > 60; GFR NON-AFRICAN AMERICAN > 60; HCG,QUALITATIVE URINE NEGATIVE (NEGATIVE)
[2017-09-07 23:59] LABS: SQUAMOUS EPITHIAL 1 /hpf (0-5); URINE BILIRUBIN NEGATIVE (NEGATIVE); URINE BLOOD NEGATIVE (NEGATIVE); URINE CLARITY Hazy (Clear); URINE COLOR Yellow (YELLOW); URINE GLUCOSE (UA) NORMAL (Normal); URINE LEUKOCYTE ESTERASE TRACE Leu/uL (Negative); URINE PROTEIN NEGATIVE (NEGATIVE); URINE UROBILINOGEN NORMAL mg/dL (0.2-1.0)
[2017-09-08 00:04] LABS: BARBITURATES, UR NEGATIVE (NEGATIVE); PHENCYCLIDINE, UR NEGATIVE (NEGATIVE)
--- NOTE | 2017-09-08 00:28 | C.PDOC ---
History Of Present Illness Pt is here requesting detox from alcohol and heroin. Time Seen by Provider: 09/07/17 22:50 Chief Complaint (Nursing): Substance Abuse History Per: Patient Onset/Duration Of Symptoms: Days Current Symptoms Are (Timing): Still Present Suicide/Self Injury Attempted (Context): None Modifying Factor(s): Alcohol, Narcotics, Cocaine Severity: Moderate Associated Symptoms: denies: Suicidal Thoughts, Suicidal Plan Additional History Per: Prior Records Past Medical History Reviewed: Historical Data, Nursing Documentation, Vital Signs Vital Signs: Last Vital Signs Temp 99.5 F 09/07/17 22:39 Pulse 112 H 09/07/17 22:39 Resp 20 09/07/17 22:39 BP 122/79 09/07/17 22:39 Pulse Ox 95 09/08/17 00:28 - Medical History PMH: Anemia, Anxiety, Bipolar Disorder, Depression, Fractures (r hip), Hepatitis (Hepatitis C), Seizures Surgical History: Other Surgeries: Right hip ORIF - [facility] Procedures DETOXIFICATION SERVICES FOR SUBSTANCE ABUSE TREATMENT (04/24/17) GROUP MASTER SONAR TECHNICIAN FOR SUBSTANCE ABUSE TREATMENT, PSYCHOEDUCATION (04/24/17) GROUP MASTER SONAR TECHNICIAN FOR SUBSTANCE ABUSE, COGNITIVE BEHAVIORAL (04/24/17) GROUP PSYCHOTHERAPY (10/17/15) IMMOBILIZ/WOUND ATTN NEC (10/18/01) INDIV PSYCHOTHERAPY FOR SUBSTANCE ABUSE TREATMENT, SUPPORT (04/24/17) INDIV PSYCHOTHERAPY FOR SUBSTANCE ABUSE, COGNITIV BEHAVIORAL (04/24/17) INDIV PSYCHOTHERAPY FOR SUBSTANCE ABUSE, PSYCHOEDUCATION (04/24/17) INJECT/INFUSE ELECTROLYT (06/02/12) INJECT/INFUSE NEC (06/02/12) MEDICATION MANAGEMENT (10/17/15) MEDS MGMT FOR SUBSTANCE ABUSE TREATMENT, OTH REPL MED (10/17/15) REPOSITION RIGHT UPPER FEMUR WITH INT FIX, PERC APPROACH (07/12/16) Family History: States: Unknown Family Hx - Social History Hx Tobacco Use: Yes Hx Alcohol Use: Yes Hx Substance Use: Yes (IVDU Heroin and Cocaine) - Immunization History Hx Tetanus Toxoid Vaccination: Yes Hx Influenza Vaccination: Yes Hx Pneumococcal Vaccination: No Review Of Systems Except As Marked, All Systems Reviewed And Found Negative. Constitutional: Negative for: Fever Cardiovascular: Negative for: Chest Pain Respiratory: Negative for: Shortness of Breath Gastrointestinal: Negative for: Vomiting, Abdominal Pain Musculoskeletal: Negative for: Neck Pain Neurological: Negative for: Weakness, Numbness Physical Exam - Physical Exam Appears: Non-toxic, No Acute Distress Skin: Normal Color, Warm, Dry Head: Atraumatic, Normacephalic Eye(s): bilateral: PERRL, EOMI Neck: Normal ROM, Supple Cardiovascular: Rhythm Regular Respiratory: Normal Breath Sounds, No Accessory Muscle Use Gastrointestinal/Abdominal: Soft, No Tenderness Extremity: Normal ROM, Other (Track ennis) Neurological/Psych: Oriented x3, Normal Motor, Normal Sensation ED Course And Treatment - Laboratory Results Result Diagrams: 09/07/17 23:33 09/07/17 23:29 Lab Interpretation: No Acute Changes Urine POC: Negative O2 Sat by Pulse Oximetry: 95 Pulse Ox Interpretation: Normal Progress Note: Pt is medically stable for detox admission. Disposition Counseled Patient/Family Regarding: Studies Performed, Diagnosis, Smoking Cessation - Disposition Disposition Time: 00:52 Condition: STABLE - Clinical Impression Clinical Impression: Opioid use disorder, Alcohol use disorder, Drug abuse Physician Patient Turnover Patient Signed Over To: Martínez Jaimes Handoff Comments: Pending dispo by psych department
[2017-09-08 00:46] LABS: BENZODIAZEPINES, UR POSITIVE (NEGATIVE); OPIATES, UR POSITIVE (NEGATIVE)
[2017-09-08] MEDS: Multiple Vitamins Tab PO SCH (09:56)
--- NOTE | 2017-09-08 11:46 | PCM.BM ---
<Jerrica Nina - Last Filed: 09/08/17 11:44> Treatment assets and liabiliti Patient Assests: adapts well, cooperative, insightful, self-reliant, ADL independent, strong guy Patient Liabilities: financial problems, relationship conflicts, substance abuse - Milieu Protocol Maintain good personal hygiene: every shift Encourage regular showers, every shift Remind patient to perform daily oral care, every shift Assist patient to perform ADL's Maintain personal safety: every shift Educate patient to report safety concerns to staff, every shift Monitor environment for contraband/sharps Medication safety: Monitor for expected outcome, potential side effects: every shift, Assess barriers to learning: every shift, Assess readiness for medication education: every shift <Wyatt Nunez - Last Filed: 09/09/17 21:59> - Diagnosis (1) Alcohol use disorder Status: Acute Interventions: 09/09/17 21:58 * Assess 7x/week regarding severity of withdrawal * Educate regarding risks, benefits, side effects and alternatives of medications * Use Motivational Interviewing for abstinence * Use CBT for relapse prevention * Medication management for withdrawal symptoms * Encourage medication assisted treatment * (2) Opioid use disorder Status: Acute Interventions: 09/09/17 21:58 * Assess 7x/week regarding severity of withdrawal * Educate regarding risks, benefits, side effects and alternatives of medications * Use Motivational Interviewing for abstinence * Use CBT for relapse prevention * Medication management for withdrawal symptoms * Encourage medication assisted treatment *
--- NOTE | 2017-09-08 11:49 | PCM.PSYCH ---
Initial Psychiatric Evaluation - Initial Psychiatric Evaluation Type of Admission: Voluntary Legal Status: Capacity Chief Complaint (in patient's own words): "I'm here for detox History of Present Illness and Precipitating Events: Pt is seen, chart reviewed, and case discussed. Pt is a 26 y/o [place] female, single with one child age 8, lives with her dad. Says that she does not work. She was crying during the encounter. Pt is here for heroin detox: uses 50 bags of IV heroin, started using at the age of 19. Her last use was yesterday at 4am. She says that she has also been drinking alcohol since the age of 19, 3 pints of [place] vodka and 4 glasses of wine a day. Pt has been to detox 6 times and rehab 3. Pt states that her plan is to go to a 21 day rehab program. Past psych hx: states that she has anxiety, bipolar disorder, and depression. Was prescribed medication such as Topamax and Welbutrin 2 years ago but admits to not using them. Denies suicidal thoughts or thoughts about harming anyone else. Medical hx: (+) HepC, decreased platelets. Pt had a septic joint last year which she got a hip replacement for. Family psych hx: says that her parents might have some psych problems but because "they are [place] they don't believe in that stuff." Current Medications: Active Medications Generic Name Dose Route Start Last Admin Trade Name Freq PRN Reason Stop Dose Admin Chlordiazepoxide 25 mg 09/08/17 01:30 09/08/17 09:56 Librium PO 25 mg Q4H PRN Administration Alcohol Withdrawal Clonidine HCl 0.1 mg 09/08/17 01:30 Catapres PO Q8 PRN COWS Score More or Equal to 5 Hydroxyzine HCl 25 mg 09/08/17 01:34 Atarax PO Q6 PRN Anxiety Ibuprofen 600 mg 09/08/17 01:33 Motrin Tab PO TID PRN Pain, moderate (4-7) Loperamide HCl 2 mg 09/08/17 01:30 Imodium PO Q8 PRN Diarrhea Multivitamins 1 tab 09/08/17 10:00 09/08/17 09:56 Hexavitamin PO 1 tab DAILY TERA Administration Ondansetron HCl 4 mg 09/08/17 01:30 Zofran Tab PO Q8 PRN Nausea/Vomiting Trazodone HCl 50 mg 09/08/17 01:30 Desyrel PO HS PRN Insomnia Past Psychiatric History - Past Psychiatric History Previous Treatment History: Inpatient Pertinent Medical Hx (Current Medical&Sleep Prob, Allergies): Allergies Allergy/AdvReac Type Severity Reaction Status Date / Time Penicillins Allergy RASH Verified 09/05/17 20:07 cheese AdvReac Intermediate RASH Verified 09/05/17 20:07 Cyclobenzaprine [Cyclobenzaprine HCl] 10 mg PO TID 09/07/17 Review of Systems - Review of Systems All systems: reviewed and no additional remarkable complaints except - Psychiatric Psychiatric: As Per HPI, Anxiety, Depression, Irritability. absent: Suicidal Ideation Mental Status Examination - Personal Presentation Personal Presentation: Looks stated age - Affect Affect: Constricted, Depressed - Motor Activity Motor Activity: Calm - Reliability in Providing Information Reliability in Providing Information: Good - Speech Speech: Organized - Mood Mood: Depressed - Formal Thought Process Formal Thought Process: No Impairment - Obsessions/Compulsions Obsessions: None Compulsions: None - Cognitive Functions Orientation: Person, Place, Situation, Time Sensorium: Alert Attention/Concentration: Attentive Abstract Thinking: [place] Estimate of Intelligence: Below average Judgement: Imparied, as evidence by: Poor judgement, Imparied, as evidence by: Lack of insight into illness Memory: Recent intact, as evidence by: Ability to recall events of the day, Remote intact, as evidenced by: Ability to recall historical events - Risk Risk: Withdrawal, Diminished functioning - Strength & Assets Inventory Strength & Assets Inventory: Family support DSM 5 DX - DSM 5 DSM 5 Diagnosis: Alcohol use disorder severe Alcohol withdrawal Opiate use disorder severe Opiate withdrawal uncomplicated Bipolar disorder mixed moderate - Recommended/Plan of Treatment Treatment Recommendations and Plan of Treatment: Alcohol use disorder severe Alcohol withdrawal CBT Psychoeducation Supportive therapy, individual therapy Start librium taper MVI/Thiamine/Folic Acid Opiate use disorder severe Opiate withdrawal uncomplicated CBT Psychoeducation Supportive therapy, individual therapy Use [place] for abstinence Start methadone taper Bipolar disorder mixed moderate CBT Psychoeducation Supportive therapy, individual therapy Trazodone 50 mg Neurontin 300 mg PO BID Projected ELOS: 35
[2017-09-08] MEDS ORDERED: Aluminum Hydroxide/Magnesium Hydroxide Susp (30 mL) PO PRN (23:19)
[2017-09-09] MEDS: Multiple Vitamins Tab PO SCH (09:12)
--- NOTE | 2017-09-09 14:13 | PCM.PYCHPN ---
Psychiatric Progress Note - Psychiatric Progress Note Patient seen today, length of contact: 17 min Patient Chief Complaint: "Withdrawing" Problems Identified/Issues Discussed: The pt is seen, chart reviewed, case discussed with staff. The pt is compliant with medications and reports no side-effects. Symptoms are improving but needs more time to stabilize. After care discussed, support and psychoeducation given. Medication Change: Yes (detox changes daily) Medical Record Reviewed: Yes Mental Status Examination - Cognitive Function Orientation: Person, Place, Situation, Time Memory: Impaired Attention: Poor Concentration: Poor Association: WNL Fund of Knowledge: Poor - Mood Mood: Depressed - Affect Affect: Constricted, Depressed - Speech Speech: Appropriate - Formal Thought Process Formal Thought Process: No Impairment - Suicidal Ideation Suicidal Ideation: No - Homicidal Ideation Homicidal Ideation: No Goal/Treatment Plan - Goal/Treatment Plan Need for Continued Stay: Discharge may exacerbated symptoms, Severe functional impairment Progress Toward Problem(s) and Goals/Treatment Plan: Continue medications but extra meth bc of wdw Support and psychoeducation daily Attend groups and activities daily After care planning by SW - Smoking Cessation Smoking Cessation Initiated: Yes
[2017-09-10] MEDS: Multiple Vitamins Tab PO SCH (09:55)
[2017-09-10 10:38] VITALS: BP 107/76; PULSE 85; RESP 18; TEMP 98.5; O2SAT 97
--- NOTE | 2017-09-10 11:44 | PCM.PYCHDC ---
Mental Status Examination - Mental Status Examination Orientation: Person, Place, Situation, Time Memory: Intact Mood: Neutral Affect: Constricted Speech: Soft Attention: WNL Concentration: WNL Association: WNL Fund of Knowledge: WNL Formal Thought Process: No Impairment Description of patient's judgement and insight: good, fair Psychotic Thoughts and Behaviors: Denies any AVH Suicidal Ideation: No Current Homicidal Ideation?: No Discharge Summary - Discharge Note Reason for Hospitalization: Pt is a 26 y/o Citizen [place] female, single with one child age 8, lives with her dad. Says that she does not work. She was crying during the encounter. Pt is here for heroin detox: uses 50 bags of IV heroin, started using at the age of 19. Her last use was yesterday at 4am. She says that she has also been drinking alcohol since the age of 19, 3 pints of [place] vodka and 4 glasses of wine a day. Pt has been to detox 6 times and rehab 3. Pt states that her plan is to go to a 21 day rehab program. Past psych hx: states that she has anxiety, bipolar disorder, and depression. Was prescribed medication such as Topamax and Welbutrin 2 years ago but admits to not using them. Denies suicidal thoughts or thoughts about harming anyone else. Medical hx: (+) HepC, decreased platelets. Pt had a septic joint last year which she got a hip replacement for. Family psych hx: says that her parents might have some psych problems but because "they are [place] they don't believe in that stuff." Consultations:: List each consultation separately and include: 1. Reason for request. 2. Findings. 3. Follow-up Summary of Hospital Course include:: 1. Description of specific treatment plan utilized for patients during their course of treatmen. 2. Summarize the time- course for resolution of acute symptoms and/or regressed behaviors. 3. Describe issues identified and worked on during hospitalization. 4. Describe medication utilized. 5. Describe medical problems identified and treated. 6. Reassessment of suicide risk Summary of Hospital Course: Pt is seen, chart reviewed, and case discussed. Pt is a 26 y/o Citizen [place] female, single with one child age 8, lives with her dad. Says that she does not work. She was crying during the encounter. Pt is here for heroin detox: uses 50 bags of IV heroin, started using at the age of 19. Her last use was yesterday at 4am. She says that she has also been drinking alcohol since the age of 19, 3 pints of [place] vodka and 4 glasses of wine a day. Pt has been to detox 6 times and rehab 3. Pt states that her plan is to go to a 21 day rehab program. Past psych hx: states that she has anxiety, bipolar disorder, and depression. Was prescribed medication such as Topamax and Welbutrin 2 years ago but admits to not using them. Denies suicidal thoughts or thoughts about harming anyone else. Medical hx: (+) HepC, decreased platelets. Pt had a septic joint last year which she got a hip replacement for. Family psych hx: says that her parents might have some psych problems but because "they are [place] they don't believe in that stuff." - Final Diagnosis (DSM 5) Condition upon Discharge: STABLE DSM 5: Alcohol use disorder severe Alcohol withdrawal Opiate use disorder severe Opiate withdrawal uncomplicated Bipolar disorder mixed moderate Disposition: HOME/ ROUTINE Follow-up Treatment Plan: Alcohol use disorder severe Alcohol withdrawal CBT Psychoeducation Supportive therapy, individual therapy Start librium taper MVI/Thiamine/Folic Acid Opiate use disorder severe Opiate withdrawal uncomplicated CBT Psychoeducation Supportive therapy, individual therapy Use CO for abstinence Start methadone taper Bipolar disorder mixed moderate CBT Psychoeducation Supportive therapy, individual therapy Trazodone 50 mg Neurontin 300 mg PO BID Prescriptions/Medication Reconciliation: cloNIDine [Catapres] 0.1 mg PO DAILY #1 tab Cyclobenzaprine [Flexeril] 5 mg PO TID 14 Days tab Escitalopram [Lexapro] 10 mg PO DAILY #14 tab Gabapentin [Neurontin] 400 mg PO TID 14 Days #90 cap traZODone [Desyrel] 50 mg PO HS PRN #14 tab PRN Reason: Insomnia
== END 2017-09-10 12:40 | disposition home or self-care (01) | DRG 745 ==
LOC: C.ER 22:34 → C.9E 09-08 01:09 → C.7D 09-08 08:28
PROVIDERS: ADMIT Psychiatry & Neurology Psychiatry; ATTEND Psychiatry & Neurology Psychiatry
PROC: HZ2ZZZZ Detoxification Services for Substance Abuse Treatment (ICD-10-PCS; principal; 2017-09-08)
PROC: HZ59ZZZ Individual Psychotherapy for Substance Abuse Treatment, Supportive (ICD-10-PCS; 2017-09-08)
PROC: HZ46ZZZ Group Counseling for Substance Abuse Treatment, Psychoeducation (ICD-10-PCS; 2017-09-08)
PROC: GZHZZZZ Group Psychotherapy (ICD-10-PCS; 2017-09-08)
PROC: GZ56ZZZ Individual Psychotherapy, Supportive (ICD-10-PCS; 2017-09-08)
DX: F11.23 Opioid dependence with withdrawal (principal); F10.239 Alcohol dependence with withdrawal, unspecified; F31.62 Bipolar disorder, current episode mixed, moderate; F17.210 Nicotine dependence, cigarettes, uncomplicated; Z96.649 Presence of unspecified artificial hip joint

== ENCOUNTER 2018-06-19 19:42 | Emergency (ER) | payer MEDICAID ==
[2018-06-19 19:42] VITALS: BMI 21.9
--- NOTE | 2018-06-19 20:30 | C.PDOC ---
History Of Present Illness 27 year old female presents to the ED for eval. pt states she wants detox for heroin last used this morning. Patient also requesting detox for heroin abuse. pt reported in triage that she was depressed but at [facility] she states" i only want pyschiatric eval if theree is no beds avail for detox". Patient denies SI, HI, hallucinations, other complaints. Time Seen by Provider: 06/19/18 20:22 Chief Complaint (Nursing): Psychiatric Evaluation History Per: Patient History/Exam Limitations: no limitations Onset/Duration Of Symptoms: Days Current Symptoms Are (Timing): Still Present Modifying Factor(s): Narcotics Associated Symptoms: Depression. denies: Suicidal Thoughts, Suicidal Plan Recent travel outside of the [place]: No Additional History Per: Patient Past Medical History Reviewed: Historical Data, Nursing Documentation, Vital Signs Vital Signs: Last Vital Signs Temp 97.7 F 06/19/18 19:58 Pulse 70 06/19/18 19:58 Resp 14 06/19/18 19:58 BP 114/70 06/19/18 19:58 Pulse Ox 96 06/19/18 19:58 Primary Care Provider: Sarah Whiteside M - Medical History PMH: Anemia, Anxiety, Bipolar Disorder, Depression, Fractures (r hip), Hepatitis (Hepatitis C), Seizures (withdrawal related) Denies: Diabetes, HIV, HTN, Chronic Kidney Disease, Sexually Transmitted Disease Surgical History: - [facility] DETOXIFICATION SERVICES FOR SUBSTANCE ABUSE TREATMENT (09/08/17) GROUP PATIENT SERVICES SPECIALIST FOR SUBSTANCE ABUSE TREATMENT, PSYCHOEDUCATION (09/08/17) GROUP PATIENT SERVICES SPECIALIST FOR SUBSTANCE ABUSE, COGNITIVE BEHAVIORAL (04/24/17) GROUP PSYCHOTHERAPY (09/08/17) IMMOBILIZ/WOUND ATTN NEC (10/18/01) INDIV PSYCHOTHERAPY FOR SUBSTANCE ABUSE TREATMENT, SUPPORT (09/08/17) INDIV PSYCHOTHERAPY FOR SUBSTANCE ABUSE, COGNITIV BEHAVIORAL (04/24/17) INDIV PSYCHOTHERAPY FOR SUBSTANCE ABUSE, PSYCHOEDUCATION (04/24/17) INDIVIDUAL PSYCHOTHERAPY, SUPPORTIVE (09/08/17) INJECT/INFUSE ELECTROLYT (06/02/12) INJECT/INFUSE NEC (06/02/12) MEDICATION MANAGEMENT (10/17/15) MEDS MGMT FOR SUBSTANCE ABUSE TREATMENT, OTH REPL MED (10/17/15) REPOSITION RIGHT UPPER FEMUR WITH INT FIX, PERC APPROACH (07/12/16) Family History: States: Unknown Family Hx - Social History Hx Tobacco Use: Yes Hx Alcohol Use: Yes Hx Substance Use: Yes - Immunization History Hx Tetanus Toxoid Vaccination: Yes Hx Influenza Vaccination: Yes Hx Pneumococcal Vaccination: No Review Of Systems Constitutional: Negative for: Fever, Chills Cardiovascular: Negative for: Chest Pain Respiratory: Negative for: Shortness of Breath Gastrointestinal: Negative for: Nausea, Vomiting, Abdominal Pain Skin: Negative for: Rash Psych: Positive for: Depression. Negative for: Suicidal ideation Physical Exam - Physical Exam Appears: Non-toxic, No Acute Distress Skin: Normal Color, Warm, Dry Head: Atraumatic, Normacephalic Eye(s): bilateral: Normal Inspection Neck: Normal ROM, Supple Chest: Symmetrical Cardiovascular: Rhythm Regular Respiratory: Normal Breath Sounds, No Rales, No Rhonchi, No Wheezing Gastrointestinal/Abdominal: Soft, No Tenderness, No Guarding, No Rebound Extremity: Normal ROM, No Tenderness, No Swelling Neurological/Psych: Oriented x3, Normal Speech, Normal Cognition Gait: Steady ED Course And Treatment - Laboratory Results Result Diagrams: 06/19/18 21:10 06/19/18 21:10 O2 Sat by Pulse Oximetry: 96 (ON RA) Pulse Ox Interpretation: Normal Medical Decision Making Medical Decision Making: Plan: * Labs * UA 21:40- Patient medically cleared. now refues detox. no si hi. refuses to wait in er for crisis eval. seen eloping. Disposition - Disposition Disposition: ELOPEMENT - ER ONLY Disposition Time: 21:47 Condition: STABLE Forms: [facility] (Paraguayan) - Clinical Impression Clinical Impression: Opioid use disorder, Depression - Scribe Statement The provider has reviewed the documentation as recorded by the Scribe Armen Howard All medical record entries made by the Scribe were at my direction and personally dictated by me. I have reviewed the chart and agree that the record accurately reflects my personal performance of the history, physical exam, medical decision making, and the department course for this patient. I have also personally directed, reviewed, and agree with the discharge instructions and disposition.
[2018-06-19 21:25] LABS: BASO # 0.1 K/uL (0.0-0.2); BASO % 0.7 % (0.0-2.0); EOS % 0.6 % (0.0-4.0); HEMOGLOBIN 10.7 g/dL (11.0-16.0); LYMPH # 1.8 K/uL (1.0-4.3); LYMPH % 22.8 % (20.0-40.0); MEAN CELL VOLUME 76.3 fL (81.0-99.0); MEAN CORPUSCULAR HEMOGLOBIN 25.1 pg (27.0-31.0); MEAN PLATELET VOLUME 9.8 fL (7.2-11.7); MONO # 0.5 K/uL (0.0-0.8); MONO % 5.9 % (0.0-10.0); NEUT # 5.4 K/uL (1.8-7.0); RBC 4.27 Mil/uL (3.80-5.20); RED CELL DISTRIBUTION WIDTH 15.9 % (11.5-14.5); WHITE BLOOD COUNT 7.7 K/uL (4.8-10.8)
[2018-06-19 21:33] LABS: SQUAMOUS EPITHIAL < 1 /hpf (0-5); URINE BACTERIA RARE (<OCC); URINE BILIRUBIN NEGATIVE (NEGATIVE); URINE BLOOD NEGATIVE (NEGATIVE); URINE CALCIUM OXALATE CRYSTALS OCC /hpf (<OCC); URINE CLARITY Hazy (Clear); URINE GLUCOSE (UA) NORMAL (Normal); URINE LEUKOCYTE ESTERASE NEG Leu/uL (Negative); URINE PROTEIN NEGATIVE (NEGATIVE)
[2018-06-19 21:34] LABS: URINE COLOR YELLOW (YELLOW)
[2018-06-19 21:35] VITALS: BP 103/64; PULSE 93; RESP 16; TEMP 98.2
[2018-06-19 21:37] LABS: ACETAMINOPHEN < 10.0 ug/mL (10.0-30.0); ALB/GLOB RATIO 0.8 (1.0-2.1); ALBUMIN 4.1 g/dL (3.5-5.0); AST/SGOT 30 U/L (14-36); BLOOD UREA NITROGEN 17 mg/dL (7-17); CALCIUM 9.3 mg/dl (8.6-10.4); GFR NON-AFRICAN AMERICAN > 60; SALICYLATE < 1.0 mg/dL 1
[2018-06-19 21:41] VITALS: O2SAT 96
[2018-06-19 21:43] LABS: ALT/SGPT < 6 U/L (9-52)
[2018-06-19 21:53] LABS: BARBITURATES, UR NEGATIVE (NEGATIVE); PHENCYCLIDINE, UR NEGATIVE (NEGATIVE)
[2018-06-19 22:27] LABS: BENZODIAZEPINES, UR POSITIVE (NEGATIVE); OPIATES, UR POSITIVE (NEGATIVE)
== END 2018-06-19 21:52 | disposition left against medical advice (07) ==
LOC: C.ER 19:42
DX: F11.90 Opioid use, unspecified, uncomplicated (principal); F32.9 Major depressive disorder, single episode, unspecified; Z72.0 Tobacco use; F31.9 Bipolar disorder, unspecified; B19.20 Unspecified viral hepatitis C without hepatic coma; F41.9 Anxiety disorder, unspecified

== ENCOUNTER 2018-06-23 01:41 | Inpatient (IN) | payer MEDICAID, OTHER ==
[2018-06-23 01:42] VITALS: BMI 21.9
[2018-06-23 03:05] LABS: BASO # 0.1 K/uL (0.0-0.2); BASO % 0.8 % (0.0-2.0); EOS % 0.5 % (0.0-4.0); HEMOGLOBIN 10.4 g/dL (11.0-16.0); LYMPH # 2.1 K/uL (1.0-4.3); MEAN CELL VOLUME 78.4 fL (81.0-99.0); MEAN CORPUSCULAR HEMOGLOBIN 25.1 pg (27.0-31.0); MEAN PLATELET VOLUME 10.5 fL (7.2-11.7); MONO # 0.5 K/uL (0.0-0.8); MONO % 6.6 % (0.0-10.0); NEUT # 4.8 K/uL (1.8-7.0); NEUT % 64.1 % (50.0-75.0); NRBC % 0.1 % (0.0-2.0); RBC 4.12 Mil/uL (3.80-5.20); RED CELL DISTRIBUTION WIDTH 15.7 % (11.5-14.5); WHITE BLOOD COUNT 7.4 K/uL (4.8-10.8)
[2018-06-23 03:28] LABS: ALB/GLOB RATIO 0.8 (1.0-2.1); ALT/SGPT 13 U/L (9-52); AST/SGOT 37 U/L (14-36); BLOOD UREA NITROGEN 16 mg/dL (7-17); CALCIUM 9.2 mg/dl (8.6-10.4); GFR NON-AFRICAN AMERICAN > 60
--- NOTE | 2018-06-23 03:48 | C.PDOC ---
History Of Present Illness 27 year old female prescreened for heroin detox. Patient was here a few days ago for detox but eloped after being medically cleared. Denies any complaints at this time. Time Seen by Provider: 06/23/18 02:13 Chief Complaint (Nursing): Substance Abuse History Per: Patient History/Exam Limitations: no limitations Onset/Duration Of Symptoms: Days Current Symptoms Are (Timing): Still Present Suicide/Self Injury Attempted (Context): None Recent travel outside of the [place]: No Past Medical History Reviewed: Historical Data, Nursing Documentation, Vital Signs Primary Care Provider: FAMILY PROVIDER,NO - Medical History PMH: Anemia, Anxiety, Bipolar Disorder, Depression, Fractures (r hip), Hepatitis (Hepatitis C), Seizures (withdrawal related) Denies: Diabetes, HIV, HTN, Chronic Kidney Disease, Sexually Transmitted D isease Surgical History: - [facility] Procedures DETOXIFICATION SERVICES FOR SUBSTANCE ABUSE TREATMENT (09/08/17) GROUP ROOM COOLER INSTALLER FOR SUBSTANCE ABUSE TREATMENT, PSYCHOEDUCATION (09/08/17) GROUP ROOM COOLER INSTALLER FOR SUBSTANCE ABUSE, COGNITIVE BEHAVIORAL (04/24/17) GROUP PSYCHOTHERAPY (09/08/17) IMMOBILIZ/WOUND ATTN NEC (10/18/01) INDIV PSYCHOTHERAPY FOR SUBSTANCE ABUSE TREATMENT, SUPPORT (09/08/17) INDIV PSYCHOTHERAPY FOR SUBSTANCE ABUSE, COGNITIV BEHAVIORAL (04/24/17) INDIV PSYCHOTHERAPY FOR SUBSTANCE ABUSE, PSYCHOEDUCATION (04/24/17) INDIVIDUAL PSYCHOTHERAPY, SUPPORTIVE (09/08/17) INJECT/INFUSE ELECTROLYT (06/02/12) INJECT/INFUSE NEC (06/02/12) MEDICATION MANAGEMENT (10/17/15) MEDS MGMT FOR SUBSTANCE ABUSE TREATMENT, OTH REPL MED (10/17/15) REPOSITION RIGHT UPPER FEMUR WITH INT FIX, PERC APPROACH (07/12/16) Family History: States: Unknown Family Hx - Social History Hx Tobacco Use: Yes Hx Alcohol Use: Yes Hx Substance Use: Yes - Immunization History Hx Tetanus Toxoid Vaccination: Yes Hx Influenza Vaccination: Yes Hx Pneumococcal Vaccination: No Review Of Systems Constitutional: Negative for: Fever, Chills Cardiovascular: Negative for: Chest Pain, Palpitations Respiratory: Negative for: Cough, Shortness of Breath Gastrointestinal: Negative for: Nausea, Vomiting Neurological: Negative for: Weakness, Numbness Physical Exam - Physical Exam Appears: Non-toxic Skin: Normal Color, Warm Head: Atraumatic, Normacephalic Eye(s): bilateral: Normal Inspection Oral Mucosa: Moist Chest: Symmetrical, No Tenderness Cardiovascular: Rhythm Regular Respiratory: Normal Breath Sounds, No Rales, No Rhonchi, No Wheezing Gastrointestinal/Abdominal: Soft, No Tenderness Extremity: Normal ROM (x4) Neurological/Psych: Oriented x3, Normal Speech Gait: Steady ED Course And Treatment - Laboratory Results Result Diagrams: 06/23/18 02:40 06/23/18 02:40 Lab Results: Total Bilirubin 0.5 mg/dL (0.2-1.3) 06/23/18 02:40 AST 37 U/L (14-36) H D 06/23/18 02:40 ALT 13 U/L (9-52) 06/23/18 02:40 Alkaline Phosphatase 82 U/L (38-126) 06/23/18 02:40 Total Protein 9.1 g/dL (6.3-8.3) H 06/23/18 02:40 Albumin 4.0 g/dL (3.5-5.0) 06/23/18 02:40 Globulin 5.1 gm/dL (2.2-3.9) H 06/23/18 02:40 Albumin/Globulin Ratio 0.8 (1.0-2.1) L 06/23/18 02:40 Progress Note: Blood work and urinalysis ordered. Crisis notified. patient is medically cleared and accepted to detox by . Disposition - Disposition Disposition: HOSPITALIZED Disposition Time: 06:34 Condition: STABLE Forms: [facility] (Cameroonian) - Clinical Impression Clinical Impression: Opioid use disorder, Depression - PA / STRUCTURAL ANALYSIS ENGINEER / Resident Statement MD/DO has reviewed & agrees with the documentation as recorded. - Scribe Statement The provider has reviewed the documentation as recorded by the Scribe Rayo Hayes All medical record entries made by the Scribe were at my direction and personally dictated by me. I have reviewed the chart and agree that the record accurately reflects my personal performance of the history, physical exam, medical decision making, and the department course for this patient. I have also personally directed, reviewed, and agree with the discharge instructions and disposition. Decision To Admit - Pt Status Changed To: Hospital Disposition Of: Inpatient - Admit Certification Admit to Inpatient:: After my assessment, the patient will require hospitalization for at least two midnights. This is because of the severity of symptoms shown, intensity of services needed, and/or the medical risk in this patient being treated as an outpatient. - InPatient: Physician Admission Certification: I certify that this patient requires 2 or more midnights of care for the following reason:: needs more than 2 days of hospitalization - . Bed Request Type: Detox Admitting Physician: Wyatt Nunez Patient Diagnosis: Opioid use disorder, Depression
[2018-06-23 04:11] LABS: HCG,QUALITATIVE URINE NEGATIVE (NEGATIVE)
[2018-06-23 04:22] LABS: SQUAMOUS EPITHIAL 1 /hpf (0-5); URINE BACTERIA OCC (<OCC); URINE BILIRUBIN NEGATIVE (NEGATIVE); URINE BLOOD NEGATIVE (NEGATIVE); URINE CLARITY Hazy (Clear); URINE COLOR Yellow (YELLOW); URINE GLUCOSE (UA) NORMAL (Normal); URINE LEUKOCYTE ESTERASE TRACE Leu/uL (Negative); URINE PROTEIN NEGATIVE (NEGATIVE)
[2018-06-23 05:26] LABS: BARBITURATES, UR NEGATIVE (NEGATIVE); PHENCYCLIDINE, UR NEGATIVE (NEGATIVE)
[2018-06-23 05:27] LABS: BENZODIAZEPINES, UR POSITIVE (NEGATIVE); OPIATES, UR POSITIVE (NEGATIVE)
[2018-06-23] MEDS ORDERED: Aluminum Hydroxide/Magnesium Hydroxide Susp (30 mL) PO PRN (07:56)
--- NOTE | 2018-06-23 07:59 | PCM.PSYCH ---
Initial Psychiatric Evaluation - Initial Psychiatric Evaluation Type of Admission: Voluntary Legal Status: Capacity Chief Complaint (in patient's own words): "I'm getting sick" History of Present Illness and Precipitating Events: The pt is seen, chart reviewed, case discussed She is a 27 y/o [place] female, unemployed, single with a 8 year-old son. She lives with her son, her father, brother and aunt. She admits to do anything she can to get drugs. She uses 40-50 bags iv heroin x 8 years. She OD'ed couple of times (dates?), used methadone maintenance up to 190 mg/d but stopped 5 years ago cold turkey in [facility]. She also uses iv cocaine, cannabis, 1-2 pint alcohol, and 3-4 xanax 2 mg tablets a day. She reports wdw sxs but was admitted under observation as she may have used some in ED bathroom - she denies it. However, she reports significant wdw sxs when she cannot find drugs. She also reports depression, insomnia ("4 days"), anhedonia, low energy, concentration, and passive SI but no ana plan/intention, AVH/del Past psych hx: states that she has anxiety, bipolar disorder, and depression. Was prescribed medication such as Topamax and Welbutrin 2 years ago but admits to not using them. Medical hx: (+) HepC, decreased platelets. Pt had a septic joint last year which she got a hip replacement for. Family psych hx: says that her parents might have some psych problems but because "they are [place] they don't believe in that stuff." Current Medications: Active Medications Generic Name Dose Route Start Last Admin Trade Name Freq PRN Reason Stop Dose Admin Al Hydrox/Mg Hydrox/Simethicone 30 ml 06/23/18 07:56 Maalox 30 Ml PO TID PRN Indigestion / Heartburn Clonidine HCl 0.1 mg 06/23/18 07:56 Catapres PO Q4 PRN COWS Score More or Equal to 5 Dicyclomine HCl 10 mg 06/23/18 07:56 Bentyl PO Q6 PRN Muscle spasm Gabapentin 400 mg 06/23/18 10:00 Neurontin PO TID TERA Ibuprofen 600 mg 06/23/18 07:56 Motrin Tab PO Q6 PRN Pain, moderate (4-7) Loperamide HCl 2 mg 06/23/18 07:56 Imodium PO Q8 PRN Diarrhea Nicotine 1 patch 06/23/18 10:00 Nicoderm Cq TD DAILY TERA Ondansetron HCl 4 mg 06/23/18 07:56 Zofran Tab PO Q8 PRN Nausea/Vomiting Trazodone HCl 50 mg 06/23/18 07:58 Desyrel PO HS PRN Insomnia Past Psychiatric History - Past Psychiatric History Previous Treatment History: Inpatient Pertinent Medical Hx (Current Medical&Sleep Prob, Allergies): Allergies Allergy/AdvReac Type Severity Reaction Status Date / Time Penicillins Allergy RASH Verified 06/23/18 02:05 cheese AdvReac Intermediate RASH Verified 06/23/18 02:05 Cyclobenzaprine [Cyclobenzaprine HCl] 10 mg PO TID 09/07/17 Cyclobenzaprine [Flexeril] 5 mg PO TID 14 Days tab 09/10/17 Escitalopram [Lexapro] 10 mg PO DAILY #14 tab 09/10/17 Gabapentin [Neurontin] 400 mg PO TID 14 Days #90 cap 09/10/17 cloNIDine [Catapres] 0.1 mg PO DAILY #1 tab 09/10/17 traZODone [Desyrel] 50 mg PO HS PRN #14 tab 09/10/17 Review of Systems - Psychiatric Psychiatric: Abnormal Sleep Pattern, Anhedonia, Anxiety, Behavioral Changes, Change in Appetite, Depression, Difficulty Concentrating, Irritability, Mood Swings, Panic Attacks. absent: Hallucinations, Homicidal Ideation, Paranoia, Suicidal Ideation Mental Status Examination - Personal Presentation Personal Presentation: Looks older than stated age - Affect Affect: Constricted - Motor Activity Motor Activity: Calm - Reliability in Providing Information Reliability in Providing Information: Fair - Speech Speech: Organized - Mood Mood: Depressed, Anxious - Formal Thought Process Formal Thought Process: No Impairment - Cognitive Functions Orientation: Person, Place, Situation, Time Sensorium: Drowsy Attention/Concentration: Easily distracted Abstract Thinking: [place] Estimate of Intelligence: Average Judgement: Intact, as evidence by: Insight regarding need for hospitalization Memory: Recent intact, as evidence by: Ability to recall events of the day, Remote impaired as evidenced by: Inability to recall sig life events - Risk Risk: Seizure, Withdrawal, Diminished functioning - Strength & Assets Inventory Strength & Assets Inventory: Family support, Cooperative - Limitations Limitations: Other DSM 5 DX - DSM 5 DSM 5 Diagnosis: Opioid withdrawal Opioid use d/o - severe 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 Attend groups and activities Supportive therapy and psychoeducation IN for abstinence CBT for relapse prevention Encourage MAT Refer to rehab or IOP, and self-help groups Teach healthy lifestyle methods, i.e. diet, exercise, meditation Smoking cessation with IN Nicotine patch if needed 34 min Projected ELOS: 5 days Prognosis: good w treatment - Smoking Cessation Smoking Cessation Initiated: Yes
--- NOTE | 2018-06-23 09:03 | PCM.BM ---
<Urszula Vitale - Last Filed: 06/23/18 09:01> Treatment Plan Problems - Problems identified on initial assessmt Defensive coping skills Date Initiated: 06/23/18 Time Initiated: 09:02 Date resolved: 06/23/18 Assessment reference: NA Mimi medina sefl stegui Date Initiated: 06/23/18 Time Initiated: 09:03 Date resolved: 06/23/18 Assessment reference: NA hioessplessness Date Initiated: 06/23/18 Time Initiated: 09:04 Date resolved: 06/23/18 Assessment reference: NA Treatment assets and liabiliti Patient Assests: adapts well, cooperative, insightful, self-reliant, ADL independent, physically healthy, negotiates basic needs, strong guy Patient Liabilities: poor support system, substance abuse (Opieated, Bzo Ezequiel and THC), medical problems (Hip surgeries) - Milieu Protocol Maintain good personal hygiene: daily Encourage regular showers, daily Remind patient to perform daily oral care, daily Assist patient to perform ADL's Maintain personal safety: every shift Educate patient to report safety concerns to staff, every shift Monitor environment for contraband/sharps Medication safety: Monitor for expected outcome, potential side effects: every shift, Assess barriers to learning: every shift, Assess readiness for medication education: every shift <Wyatt Nunez - Last Filed: 06/23/18 12:14> - Diagnosis (1) Opioid use disorder Status: Acute Interventions: 06/23/18 12:14 * Assess 7x/week regarding severity of withdrawal * Educate regarding risks, benefits, side effects and alternatives of medications * Use Motivational Interviewing for abstinence * Use CBT for relapse prevention * Medication management for withdrawal symptoms * Encourage medication assisted treatment * (2) Alcohol use disorder Status: Acute Interventions: 06/23/18 12:14 * Assess/adjust medications daily and /or as needed * See patient on an individual basis 7x/week to assess symptoms of depression * Monitor for side effects & effectiveness of medications *
--- NOTE | 2018-06-23 15:50 | CP.PCM.PCO ---
Physician Communication Note - Physician Communication Note Physician Communication Note: Pt started to get very sick, switched to INPAT bc of severity, comorbidity
[2018-06-23 17:28] LABS: IRON 29 ug/dL (37-170)
[2018-06-23 17:37] LABS: % IRON SATURATION 11 (20-55); TOTAL IRON BINDING CAPACITY 266 ug/dL (250-450)
--- NOTE | 2018-06-24 11:48 | PCM.PYCHPN ---
Psychiatric Progress Note - Psychiatric Progress Note Patient seen today, length of contact: 15 MIN Patient Chief Complaint: I am withdrawing from heroin. Problems Identified/Issues Discussed: Patient was seen and evaluated, chart reviewed and discussed the staff. Patient reports some improvement in her irritability and agitation. Patient still reports withdrawal symptoms including cramps, headache, sweating and joint pains. She denies any suicidal ideation or any homicidal ideation. She denies any auditory hallucinations or any paranoia. She is taking medication but denies any side effects. Symptoms are improving gradually but she needs to stay longer for further stabilization. Supportive therapy was given Medication Change: Yes Medical Record Reviewed: Yes Mental Status Examination - Cognitive Function Orientation: Person, Place, Situation, Time Memory: Intact Attention: WNL Concentration: Poor Association: WNL Fund of Knowledge: Poor - Mood Mood: Depressed, Anxious - Affect Affect: Constricted - Speech Speech: Soft - Formal Thought Process Formal Thought Process: No Impairment - Suicidal Ideation Suicidal Ideation: No - Homicidal Ideation Homicidal Ideation: No Goal/Treatment Plan - Goal/Treatment Plan Need for Continued Stay: Remain at risks for inpatient hospitalization Progress Toward Problem(s) and Goals/Treatment Plan: Opioid withdrawal Opioid use d/o - severe 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 Attend groups and activities Supportive therapy and psychoeducation PR for abstinence CBT for relapse prevention Encourage MAT Refer to rehab or IOP, and self-help groups Teach healthy lifestyle methods, i.e. diet, exercise, meditation Smoking cessation with PR Nicotine patch if needed
[2018-06-25] MEDS: Divalproex 250 mg DR Tab PO SCH ×3 (12:47→18:05)
[2018-06-26] MEDS: Divalproex 250 mg DR Tab PO SCH ×2 (09:03→17:46)
--- NOTE | 2018-06-26 12:53 | PCM.PYCHPN ---
Psychiatric Progress Note - Psychiatric Progress Note Patient seen today, length of contact: 16 min Patient Chief Complaint: "I'm anxious, I threw up" Problems Identified/Issues Discussed: The pt is seen, chart reviewed, case discussed with staff. The pt is compliant with medications and reports no side-effects. Symptoms are improving but needs more time to stabilize. Pt attends groups and activities. Support given, psycho-education provided. After care discussed. She first wants to attend a wedding so she wants to leave [facility] However, she may need IV abx because of a case of Beta strep UTI (and she is allergic to PCN) Sole Skiver d/w Dr Negrita James and asked for a consult afterwards Medication Change: Yes (detox changes daily) Medical Record Reviewed: Yes Mental Status Examination - Cognitive Function Orientation: Person, Place, Situation, Time Memory: Intact Attention: WNL Concentration: Poor Association: WNL Fund of Knowledge: Poor - Mood Mood: Depressed, Anxious - Affect Affect: Constricted - Speech Speech: Soft - Formal Thought Process Formal Thought Process: No Impairment - Suicidal Ideation Suicidal Ideation: No - Homicidal Ideation Homicidal Ideation: No Goal/Treatment Plan - Goal/Treatment Plan Need for Continued Stay: Discharge may exacerbated symptoms, Severe functional impairment Progress Toward Problem(s) and Goals/Treatment Plan: Taper with methadone and lorazepam (doesn't want librium) when she withdraws Gabapentin for augmentation if needed As needed medications All risks, benefits and alternatives of the meds discussed, and the pt agreed and understood. Attend groups and activities Supportive therapy and psychoeducation [place] for abstinence CBT for relapse prevention Encourage MAT Refer to rehab or IOP, and self-help groups Teach healthy lifestyle methods, i.e. diet, exercise, meditation Smoking cessation with [place] Nicotine patch if needed Med consult for Beta+ UTI
[2018-06-26] MEDS ORDERED: Amoxicillin-Clav 875-125 mg Tab PO ONE (13:00)
--- NOTE | 2018-06-26 16:07 | CP.PCM.CON ---
<Alejandro Sky - Last Filed: 06/26/18 16:50> History of Present Illness - History of Present Illness History of Present Illness: Medicine Consult Note for Dr. Bains, Hospitalist Service This is a 27 y o female with PMhx Hepatitis C, Heroin abuse, Cocaine abuse, IVDA. decreased platelets, depression, who presented to the ED on 06/23/18 for heroin detoxification. Reason for medical consult was for Beta-hemolytic strep group B in urine culture and UTI. Pt denies any UTI symptoms currently, states she has been adequately hydrating herself with water on the detox floor and voiding well without concerns. Denies burning with urination, urinary frequency, changes in color of urine, abnormal odor, or abnormal vaginal discharge or bleeding. Reports LMP was 2 y ago, pt attributes this to her heroin abuse. Admits to having low back pain since she presented to the detox unit, but states she has long-standing chronic low back pain that has been present for a long time. Reports being treated above3 mos ago with Monistat cream for a yeast infection while incarcerated. PMhx: as noted above PSurghx: s/p hip surgery/replacement x3 on R side for joint infection, most recent surgery 1 y ago performed by orthopedic at [facility] [place] (pt does not remember name of physician; C/s x1 Allergies: PCN (hives) Home meds: none Fam hx: denies Soc hx: Admits to recreational heroin and cocaine IVDA since age 19, admits to smoking marijuana daily since age 16, drinks 1.5 pints of [place] liquor on weekends, smokes cigarettes 1 ppd x 10 y. Currently unemployed, lives at home with family and son age 8. Father of son is not in picture at this time. Admits to being sexually active currently with 1 male partner, states she uses protection. Reports recent STD testing 1 y ago, states results were normal. PMD: Dr. Whitesied Review of Systems - Constitutional Constitutional: absent: Anorexia, Chills, Fever, Headache, Lethargy, Malaise, Night Sweats, Weight Loss, Weakness - EENT Eyes: absent: Change in Vision - Cardiovascular Cardiovascular: absent: Chest Pain, Dyspnea on Exertion, Lightheadedness, Palpitations, Pedal Edema, Syncope - Respiratory Respiratory: absent: Cough, Dyspnea, Dyspnea on Exertion, Wheezing, Chest Co ngestion - Gastrointestinal Gastrointestinal: absent: Abdominal Pain, Constipation, Diarrhea, Nausea, Vomiting - Genitourinary Genitourinary: absent: Change in Urinary Stream, Difficulty Urinating, Dysuria, Flank Pain, Hematuria, Urinary Incontinence, Urinary Urgency, Freq UTI - Integumentary Integumentary: absent: Rash - Neurological Neurological: absent: Abnormal Gait, Dizziness, Numbness, Tingling, Tremor, Weakness Past Patient History - Infectious Disease Hx of Infectious Diseases: None - Tetanus Immunizations Tetanus Immunization: Up to Date - Past Medical History & Family History Past Medical History?: Yes - Past Social History Smoking Status: Current Some Days Smoker - CARDIAC Hx Hypertension: No - PULMONARY Hx Respiratory Disorders: No Hx Tuberculosis: No - NEUROLOGICAL Hx Seizures: Yes (withdrawal related) - HEENT Hx HEENT Problems: No - RENAL Hx Chronic Kidney Disease: No - ENDOCRINE/METABOLIC Hx Endocrine Disorders: No - HEMATOLOGICAL/ONCOLOGICAL Hx Anemia: Yes Hx Human Immunodeficiency Virus (HIV): No - INTEGUMENTARY Hx Dermatological Problems: No - MUSCULOSKELETAL/RHEUMATOLOGICAL Hx Falls: Yes - GASTROINTESTINAL Hx Gastrointestinal Disorders: No - GENITOURINARY/GYNECOLOGICAL Hx Sexually Transmitted Disorders: No - PSYCHIATRIC Hx Substance Use: Yes - SURGICAL HISTORY Hx Surgeries: Yes Hx Section: Yes Hx Orthopedic Surgery: Yes (RT HIP REPLACEMENT 2016) - ANESTHESIA Hx Anesthesia: Yes Hx Anesthesia Reactions: No Hx Malignant Hyperthermia: No Meds Allergies/Adverse Reactions: Allergies Allergy/AdvReac Type Severity Reaction Status Date / Time Penicillins Allergy RASH Verified 06/23/18 02:05 cheese AdvReac Intermediate RASH Verified 06/23/18 02:05 - Medications Medications: Current Medications Al Hydrox/Mg Hydrox/Simethicone (Maalox 30 Ml) 30 ml PO TID PRN PRN Reason: Indigestion / Heartburn Clonidine HCl (Catapres) 0.1 mg PO Q4 PRN PRN Reason: COWS Score More or Equal to 5 Last Admin: 06/25/18 18:51 Dose: 0.1 mg Dicyclomine HCl (Bentyl) 10 mg PO Q6 PRN PRN Reason: Muscle spasm Divalproex Sodium (Depakote Dr) 250 mg PO BID [facility] Last Admin: 06/26/18 09:03 Dose: 250 mg Docusate Sodium (Colace) 100 mg PO DAILY [facility] Last Admin: 06/26/18 09:03 Dose: 100 mg Ferrous Sulfate (Feosol) 325 mg PO DAILY [facility] Last Admin: 06/26/18 09:03 Dose: 325 mg Gabapentin (Neurontin) 400 mg PO TID [facility] Last Admin: 06/26/18 13:21 Dose: 400 mg Hydroxyzine HCl (Atarax) 25 mg PO Q6 PRN PRN Reason: Anxiety Last Admin: 06/24/18 18:38 Dose: 25 mg Ibuprofen (Motrin Tab) 600 mg PO Q6 PRN PRN Reason: Pain, moderate (4-7) Loperamide HCl (Imodium) 2 mg PO Q8 PRN PRN Reason: Diarrhea Lorazepam (Ativan) 1 mg PO Q12H [facility]; Taper Stop: 06/28/18 15:59 Last Admin: 06/26/18 08:25 Dose: 1 mg Methadone HCl (Methadone) 10 mg PO Q24H [facility]; Taper Stop: 06/28/18 09:59 Last Admin: 06/26/18 09:03 Dose: 10 mg Nicotine (Nicoderm Cq) 1 patch TD DAILY [facility] Last Admin: 06/26/18 09:02 Dose: 1 patch Ondansetron HCl (Zofran Tab) 4 mg PO Q8 PRN PRN Reason: Nausea/Vomiting Last Admin: 06/26/18 10:05 Dose: 4 mg Quetiapine Fumarate (Seroquel) 100 mg PO HS [facility] Last Admin: 06/25/18 21:03 Dose: 100 mg Trazodone HCl (Desyrel) 50 mg PO HS PRN PRN Reason: Insomnia Last Admin: 06/25/18 21:03 Dose: 50 mg Physical Exam - Constitutional Appears: Non-toxic, No Acute Distress - Head Exam Head Exam: ATRAUMATIC, NORMOCEPHALIC - Eye Exam Eye Exam: EOMI, Normal appearance, PERRL - ENT Exam ENT Exam: Mucous Membranes Moist - Neck Exam Neck exam: Positive for: Full Rom, Normal Inspection. Negative for: Tenderness - Respiratory Exam Respiratory Exam: Clear to Auscultation Bilateral, NORMAL BREATHING PATTERN. absent: Rales, Rhonchi, Wheezes - Cardiovascular Exam Cardiovascular Exam: REGULAR RHYTHM, +S1, +S2. absent: Gallop, Rubs, Systolic Murmur - GI/Abdominal Exam GI & Abdominal Exam: Normal Bowel Sounds, Soft. absent: Distended, Organomegaly, Tenderness - Extremities Exam Extremities exam: Positive for: full ROM, normal capillary refill, normal inspection, pedal pulses present. Negative for: pedal edema - Back Exam Back exam: CVA tenderness (R), FULL ROM, NORMAL INSPECTION. absent: CVA tend erness (L) - Neurological Exam Neurological exam: Alert, CN II-XII Intact, Normal Gait, Oriented x3 - Skin Skin Exam: Dry, Intact, Warm Results - Vital Signs Recent Vital Signs: Last Vital Signs Temp 97.9 F 06/26/18 13:56 Pulse 93 H 06/26/18 13:56 Resp 18 06/26/18 13:56 BP 107/67 06/26/18 13:56 Pulse Ox 98 06/26/18 13:56 - Labs Result Diagrams: 06/23/18 02:40 06/23/18 02:40 Assessment & Plan - Assessment and Plan (Free Text) Assessment: This is a 27 y o female with PMhx Hepatitis C, Heroin abuse, Cocaine abuse, IVDA. decreased platelets, depression, who presented to the ED on 06/23/18 for heroin detoxification. Reason for medical consult was for Beta-hemolytic strep group B in urine culture and UTI. Plan: UTI -Beta-hemolytic strep in urine cx from 06/23 -Start Vanco 1 g q24h -Pt has allergy to PCN -Pt to be transferred from detox unit to med/surg unit for treatment of UTI with IV antibiotics -Repeat bloodwork and ua/urine cxs pending -RPR, GC/Chlamydia, hepatitis panel pending -HIV negative Depression -Management as per psych recs Anemia -Iron studies demonstrate iron-deficiency anemia -C/w Feosol daily -H/H 10.4/32.3 on 06/23, repeat CBC pending Hx decreased platelets Plt ct 120,000 from 06/23, repeat CBC pending Hx IVDA -Cessation counseling provided -Dr. Nunez consulted, recs appreciated -C/w current detox medication regimen as per psych Hx Tobacco Abuse -Cessation counseling provided -Nicotine patch daily Hx EtOH abuse -Cessation counseling provided -Management as per psych recs Hx Hep C -Pt denies ever receiving tx in the past, has known about dx for past 2 y -Repeat hepatitis panel pending -Counseled pt on importance of f/u with PCP after d/c to initiate treatment PPX: DVT: SCD, activity as tolerated GI: n/a at this time Pt seen, examined with, and plan discussed with Dr. Bains, attending physician. Alejandro Sky DO PGY-1, [employer] Supervisor Pager #[phone] <Marivel Bains V - Last Filed: 06/26/18 23:31> Meds - Medications Medications: Current Medications Al Hydrox/Mg Hydrox/Simethicone (Maalox 30 Ml) 30 ml PO TID PRN PRN Reason: Indigestion / Heartburn Clonidine HCl (Catapres) 0.1 mg PO Q4 PRN PRN Reason: COWS Score More or Equal to 5 Last Admin: 06/25/18 18:51 Dose: 0.1 mg Dicyclomine HCl (Bentyl) 10 mg PO Q6 PRN PRN Reason: Muscle spasm Divalproex Sodium (Depakote Dr) 250 mg PO BID [facility] Last Admin: 06/26/18 17:46 Dose: 250 mg Docusate Sodium (Colace) 100 mg PO DAILY [facility] Last Admin: 06/26/18 09:03 Dose: 100 mg Ferrous Sulfate (Feosol) 325 mg PO DAILY [facility] Last Admin: 06/26/18 09:03 Dose: 325 mg Gabapentin (Neurontin) 400 mg PO TID [facility] Last Admin: 06/26/18 17:47 Dose: 400 mg Hydroxyzine HCl (Atarax) 25 mg PO Q6 PRN PRN Reason: Anxiety Last Admin: 06/24/18 18:38 Dose: 25 mg Vancomycin/Sodium Chloride (Vancomycin 1 Gm/Ns 200 Ml) 1 gm in 200 mls @ 133 mls/hr IVPB Q24H [facility]; Protocol Stop: 07/01/18 18:01 Last Admin: 06/26/18 19:33 Dose: 133 mls/hr Ibuprofen (Motrin Tab) 600 mg PO Q6 PRN PRN Reason: Pain, moderate (4-7) Loperamide HCl (Imodium) 2 mg PO Q8 PRN PRN Reason: Diarrhea Lorazepam (Ativan) 1 mg PO Q12H [facility]; Taper Stop: 06/28/18 15:59 Last Admin: 06/26/18 16:07 Dose: 1 mg Methadone HCl (Methadone) 10 mg PO Q24H [facility]; Taper Stop: 06/28/18 09:59 Last Admin: 06/26/18 09:03 Dose: 10 mg Nicotine (Nicoderm Cq) 1 patch TD DAILY [facility] Last Admin: 06/26/18 09:02 Dose: 1 patch Ondansetron HCl (Zofran Tab) 4 mg PO Q8 PRN PRN Reason: Nausea/Vomiting Last Admin: 06/26/18 10:05 Dose: 4 mg Quetiapine Fumarate (Seroquel) 100 mg PO HS [facility] Last Admin: 06/26/18 21:23 Dose: 100 mg Trazodone HCl (Desyrel) 50 mg PO HS PRN PRN Reason: Insomnia Last Admin: 06/26/18 21:25 Dose: 50 mg Results - Vital Signs Recent Vital Signs: Last Vital Signs Temp 98 F 06/26/18 18:17 Pulse 98 H 06/26/18 18:17 Resp 20 06/26/18 18:17 BP 109/80 06/26/18 18:17 Pulse Ox 100 06/26/18 18:17 - Labs Result Diagrams: 06/26/18 16:57 06/26/18 16:57 Labs: Laboratory Results - last 24 hr 06/26/18 06/26/18 06/26/18 16:57 16:57 16:57 WBC 7.0 RBC 4.71 Hgb 11.9 Hct 36.6 MCV 77.7 L MCH 25.3 L MCHC 32.5 L RDW 15.9 H Plt Count 163 MPV 10.0 Neut % (Auto) 63.9 Lymph % (Auto) 28.7 [place] % (Auto) 6.3 Eos % (Auto) 0.3 Baso % (Auto) 0.8 Neut # (Auto) 4.5 Lymph # (Auto) 2.0 [place] # (Auto) 0.4 Eos # (Auto) 0.0 Baso # (Auto) 0.1 Sodium 138 Potassium 4.0 Chloride 101 Carbon Dioxide 24 Anion Gap 16 BUN 18 H Creatinine 0.8 Est GFR ( Amer) > 60 Est GFR (Non-Af Amer) > 60 Random Glucose 127 H D Calcium 9.6 Total Bilirubin 0.5 AST 64 H D ALT 16 Alkaline Phosphatase 86 Total Protein 9.5 H Albumin 4.4 Globulin 5.1 H Albumin/Globulin Ratio 0.9 L Urine Color Urine Clarity Urine pH Ur Specific [place] Urine Protein Urine Glucose (UA) Urine Ketones Urine Blood Urine Nitrate Urine Bilirubin Urine Urobilinogen Ur Leukocyte Esterase Urine WBC (Auto) Urine RBC (Auto) Ur Squamous Epith Cells Urine Bacteria RPR Titer RPR Hepatitis A IgM Ab Negative Hep Bs Antigen Negative Hep B Core IgM Ab Negative Hepatitis C Antibody Reactive 06/26/18 06/26/18 16:57 20:11 WBC RBC Hgb Hct MCV MCH MCHC RDW Plt Count MPV Neut % (Auto) Lymph % (Auto) [place] % (Auto) Eos % (Auto) Baso % (Auto) Neut # (Auto) Lymph # (Auto) [place] # (Auto) Eos # (Auto) Baso # (Auto) Sodium Potassium Chloride Carbon Dioxide Anion Gap BUN Creatinine Est GFR ( Amer) Est GFR (Non-Af Amer) Random Glucose Calcium Total Bilirubin AST ALT Alkaline Phosphatase Total Protein Albumin Globulin Albumin/Globulin Ratio Urine Color [place] Urine Clarity Hazy Urine pH 6.0 Ur Specific [place] 1.024 Urine Protein Negative Urine Glucose (UA) Normal Urine Ketones Negative Urine Blood Negative Urine Nitrate Negative Urine Bilirubin Negative Urine Urobilinogen 4.0 H Ur Leukocyte Esterase Neg Urine WBC (Auto) 4 Urine RBC (Auto) 2 Ur Squamous Epith Cells 12 H Urine Bacteria Rare RPR Titer 1:2 H RPR Reactive H Hepatitis A IgM Ab Hep Bs Antigen Hep B Core IgM Ab Hepatitis C Antibody Attending/Attestation - Attestation I have personally seen and examined this patient.: Yes I have fully participated in the care of the patient.: Yes I have reviewed all pertinent clinical information: Yes Notes (Text): this is a 27 year old female with history of IV heroin use; in detox for heroin withdrawal. Medicine consult for beta hemolytic culture uti. culture noted sensitive to PCN; however patient is allergic. Patient noted frequency but denies dysuria, hematuria. Patient has had yeast infection in the past. We have transferred patient to general medical floor for benefit of IV abx. We will repeat blood work, urine studies. Also, noted patient has not had her period for 2 years since the heroin use. We discussed in great detail regarding her hepatitis C; she attributes to IV contraction. We have explained to her in great detail it is transfer via contact blood and body fluids; advised safe sex practices and no exchange of needles as well as if untreated can lead to cirrhosis and liver cancer. Patient has requested STD screening as well. Patient noted she is seeking help; anticipating prior to Tuesday for her 1st cousin's wedding in [place]. Also note, patient has been instructed in regards to have visitors and to not take any drugs while in the hospital. Noted ID consult later due to positive RPR; medicine restricted since patient is allergic to PCN. UTI -Beta-hemolytic strep in urine cx from 06/23 -Start Vanco 1 g q24h -Pt has allergy to PCN -Pt to be transferred from detox unit to med/surg unit for treatment of UTI with IV antibiotics -Repeat bloodwork and ua/urine cxs pending -RPR, GC/Chlamydia, hepatitis panel pending -HIV negative Depression -Management as per psych recs Anemia -Iron studies demonstrate iron-deficiency anemia -C/w Feosol daily -H/H 10.4/32.3 on 06/23, repeat CBC pending Hx decreased platelets Plt ct 120,000 from 06/23, repeat CBC pending Hx IVDA -Cessation counseling provided -Dr. Nunez consulted, recs appreciated -C/w current detox medication regimen as per psych Hx Tobacco Abuse -Cessation counseling provided -Nicotine patch daily Hx EtOH abuse -Cessation counseling provided -Management as per psych recs Hx Hep C -Pt denies ever receiving tx in the past, has known about dx for past 2 y -Repeat hepatitis panel pending -Counseled pt on importance of f/u with PCP after d/c to initiate treatment PPX: DVT: SCD, activity as tolerated GI: n/a at this time
[2018-06-26 17:09] LABS: BASO # 0.1 K/uL (0.0-0.2); BASO % 0.8 % (0.0-2.0); EOS % 0.3 % (0.0-4.0); HEMOGLOBIN 11.9 g/dL (11.0-16.0); LYMPH % 28.7 % (20.0-40.0); MEAN CELL VOLUME 77.7 fL (81.0-99.0); MEAN CORPUSCULAR HEMOGLOBIN 25.3 pg (27.0-31.0); MEAN CORPUSCULAR HGB CONC 32.5 g/dL (33.0-37.0); MONO # 0.4 K/uL (0.0-0.8); MONO % 6.3 % (0.0-10.0); NEUT # 4.5 K/uL (1.8-7.0); NEUT % 63.9 % (50.0-75.0); RBC 4.71 Mil/uL (3.80-5.20); RED CELL DISTRIBUTION WIDTH 15.9 % (11.5-14.5)
[2018-06-26 17:37] LABS: ALB/GLOB RATIO 0.9 (1.0-2.1); ALBUMIN 4.4 g/dL (3.5-5.0); ALT/SGPT 16 U/L (9-52); AST/SGOT 64 U/L (14-36); BLOOD UREA NITROGEN 18 mg/dL (7-17); CALCIUM 9.6 mg/dl (8.6-10.4); GFR NON-AFRICAN AMERICAN > 60
[2018-06-26 18:06] LABS: HEPATITIS B SURFACE AG Negative (NEGATIVE)
[2018-06-26 18:12] LABS: HEPATITIS A IGM NEGATIVE (NEGATIVE); HEPATITIS B CORE AB NEGATIVE (NEGATIVE)
[2018-06-26] MEDS: Vancomycin 1 gm/NS 200 ml 1 GM/200 ML BAG IVPB SCH (19:33)
[2018-06-26 20:04] LABS: HEPATITIS C ANTIBODY REACTIVE (NEGATIVE)
[2018-06-26 20:53] LABS: SQUAMOUS EPITHIAL 12 /hpf (0-5); URINE BACTERIA RARE (<OCC); URINE BILIRUBIN NEGATIVE (NEGATIVE); URINE BLOOD NEGATIVE (NEGATIVE); URINE CLARITY Hazy (Clear); URINE COLOR Amber (YELLOW); URINE GLUCOSE (UA) NORMAL (Normal); URINE LEUKOCYTE ESTERASE NEG Leu/uL (Negative); URINE PROTEIN NEGATIVE (NEGATIVE)
[2018-06-26 21:29] LABS: RAPID PLASMA REAGIN REACTIVE (NONREACTIVE)
[2018-06-27 07:42] VITALS: RESP 20
[2018-06-27 08:18] LABS: BASO % 0.8 % (0.0-2.0); EOS # 0.1 K/uL (0.0-0.7); EOS % 1.2 % (0.0-4.0); LYMPH # 1.7 K/uL (1.0-4.3); LYMPH % 28.2 % (20.0-40.0); MEAN CELL VOLUME 77.1 fL (81.0-99.0); MEAN CORPUSCULAR HEMOGLOBIN 25.6 pg (27.0-31.0); MEAN CORPUSCULAR HGB CONC 33.3 g/dL (33.0-37.0); MEAN PLATELET VOLUME 10.7 fL (7.2-11.7); MONO # 0.4 K/uL (0.0-0.8); MONO % 6.8 % (0.0-10.0); NEUT # 3.7 K/uL (1.8-7.0); RBC 4.69 Mil/uL (3.80-5.20); WHITE BLOOD COUNT 5.9 K/uL (4.8-10.8)
[2018-06-27 08:31] LABS: ALB/GLOB RATIO 0.8 (1.0-2.1); ALBUMIN 4.3 g/dL (3.5-5.0); ALT/SGPT 22 U/L (9-52); AST/SGOT 72 U/L (14-36); BLOOD UREA NITROGEN 19 mg/dL (7-17); CALCIUM 9.6 mg/dl (8.6-10.4); GFR NON-AFRICAN AMERICAN > 60
[2018-06-27] MEDS: Divalproex 250 mg DR Tab PO SCH ×2 (09:20→17:36)
--- NOTE | 2018-06-27 09:37 | CP.PCM.PN ---
<Alejandro Sky - Last Filed: 06/27/18 13:05> Subjective - Date & Time of Evaluation Date of Evaluation: 06/27/18 Time of Evaluation: 09:15 - Subjective Subjective: Medicine Progress Note for Dr. Bains, Hospitalist Service Pt seen and examined at bedside this am. Reports that she has been sneezing and yawning very frequently this am. Appears anxious on exam. Denies fever, chills, chest pain, sob, n/v/d/c, abd pain, low back pain, urinary complaints, dysuria, vaginal discharge, urinary frequency, or other symptoms. States she is tolerating PO diet and drinking plenty of PO fluids. Objective - Vital Signs/Intake and Output Vital Signs (last 24 hours): Temp Pulse Resp BP Pulse Ox 97.8 F 86 20 105/59 L 97 06/27/18 07:00 06/27/18 07:00 06/27/18 07:00 06/27/18 07:00 06/27/18 07:00 Intake and Output: 06/27/18 06/27/18 06:59 18:59 Intake Total 120 Balance 120 - Medications Medications: Current Medications Al Hydrox/Mg Hydrox/Simethicone (Maalox 30 Ml) 30 ml PO TID PRN PRN Reason: Indigestion / Heartburn Clonidine HCl (Catapres) 0.1 mg PO Q4 PRN PRN Reason: COWS Score More or Equal to 5 Last Admin: 06/25/18 18:51 Dose: 0.1 mg Dicyclomine HCl (Bentyl) 10 mg PO Q6 PRN PRN Reason: Muscle spasm Divalproex Sodium (Depakote Dr) 250 mg PO BID [facility] Last Admin: 06/27/18 09:20 Dose: 250 mg Docusate Sodium (Colace) 100 mg PO DAILY [facility] Last Admin: 06/27/18 09:20 Dose: 100 mg Ferrous Sulfate (Feosol) 325 mg PO DAILY [facility] Last Admin: 06/27/18 09:20 Dose: 325 mg Gabapentin (Neurontin) 400 mg PO TID [facility] Last Admin: 06/27/18 09:20 Dose: 400 mg Hydroxyzine HCl (Atarax) 25 mg PO Q6 PRN PRN Reason: Anxiety Last Admin: 06/24/18 18:38 Dose: 25 mg Vancomycin/Sodium Chloride (Vancomycin 1 Gm/Ns 200 Ml) 1 gm in 200 mls @ 133 mls/hr IVPB Q24H [facility]; Protocol Stop: 07/01/18 18:01 Last Admin: 06/26/18 19:33 Dose: 133 mls/hr Ibuprofen (Motrin Tab) 600 mg PO Q6 PRN PRN Reason: Pain, moderate (4-7) Loperamide HCl (Imodium) 2 mg PO Q8 PRN PRN Reason: Diarrhea Lorazepam (Ativan) 1 mg PO Q12H [facility]; Taper Stop: 06/28/18 15:59 Last Admin: 06/27/18 04:32 Dose: 1 mg Methadone HCl (Methadone) 10 mg PO Q24H [facility]; Taper Stop: 06/28/18 09:59 Last Admin: 06/27/18 09:19 Dose: 5 mg Nicotine (Nicoderm Cq) 1 patch TD DAILY [facility] Last Admin: 06/27/18 09:28 Dose: 1 patch Ondansetron HCl (Zofran Tab) 4 mg PO Q8 PRN PRN Reason: Nausea/Vomiting Last Admin: 06/26/18 10:05 Dose: 4 mg Pneumococcal Polyvalent Vaccine (Pneumovax 23 Vaccine) 0.5 ml IM .ONCE ONE Stop: 06/29/18 10:01 Quetiapine Fumarate (Seroquel) 100 mg PO HS [facility] Last Admin: 06/26/18 21:23 Dose: 100 mg Trazodone HCl (Desyrel) 50 mg PO HS PRN PRN Reason: Insomnia Last Admin: 06/26/18 21:25 Dose: 50 mg - Labs Labs: 06/27/18 08:03 06/27/18 08:03 - Constitutional Appears: Non-toxic, No Acute Distress - Head Exam Head Exam: ATRAUMATIC, NORMOCEPHALIC - Eye Exam Eye Exam: EOMI, Normal appearance, PERRL - ENT Exam ENT Exam: Mucous Membranes Moist, Normal Oropharynx - Neck Exam Neck Exam: Full ROM, Normal Inspection. absent: Lymphadenopathy, Tenderness - Respiratory Exam Respiratory Exam: Clear to Ausculation Bilateral, NORMAL BREATHING PATTERN. absent: Rales, Rhonchi, Wheezes - Cardiovascular Exam Cardiovascular Exam: REGULAR RHYTHM, +S1, +S2. absent: Gallop, Rubs, Murmur - GI/Abdominal Exam GI & Abdominal Exam: Soft, Normal Bowel Sounds. absent: Distended, Guarding, Tenderness, Organomegaly - Extremities Exam Extremities Exam: Full ROM, Normal Capillary Refill, Normal Inspection. absent: Pedal Edema, Tenderness - Back Exam Back Exam: Full ROM, NORMAL INSPECTION. absent: CVA tenderness (L), CVA tenderness (R), paraspinal tenderness - Neurological Exam Neurological Exam: Alert, Awake, CN II-XII Intact, Oriented x3 - Psychiatric Exam Psychiatric exam: Anxious - Skin Skin Exam: Dry, Intact, Normal Color, Warm Assessment and Plan - Assessment and Plan (Free Text) Assessment: 27 y o female with PMhx Hepatitis C, Heroin abuse, Cocaine abuse, IVDA. decreased platelets, depression, who presented to the ED on 06/23/18 for heroin detoxification. Currently admitted to med/surg floor for IV antibiotic therapy for Beta-hemolytic strep group B in urine culture and UTI. Patient also tested positive for RPR, confirmatory testing pending for syphilis. Plan: UTI -Beta-hemolytic strep in urine cx from 06/23, resistant to clindamycin -C/w Vanco 1 g q24h -Pt has allergy to PCN -No leukocytosis -Repeat U/a demonstrates 4 urobilinogen, squamous cells, rare bacteria -Repeat Urine cx pending -RPR positive, FTA-Ab pending -Hepatitis panel demonstrates positive for Hep C -GC/Chlamydia pending -HIV negative -ID consulted, Dr. Connors, recs appreciated Depression -Management as per psych recs Anemia -Iron studies demonstrate iron-deficiency anemia -C/w Feosol daily -H/H 12.0/36.1, trending up, cont to monitor Hx decreased platelets Plt ct 120,000 from 06/23, normalized today, cont to trend Hx IVDA -Cessation counseling provided -Dr. Nunez consulted, recs appreciated -C/w current detox medication regimen as per psych Hx Tobacco Abuse -Cessation counseling provided -Nicotine patch daily Hx EtOH abuse -Cessation counseling provided -Management as per psych recs Hx Hep C -Pt denies ever receiving tx in the past, has known about dx for past 2 y -Repeat hepatitis panel demonstrates pt positive for Hep C -Counseled pt on importance of f/u with PCP after d/c to initiate treatment PPX: DVT: SCD, activity as tolerated GI: n/a at this time Pt seen, examined with, and plan discussed with Dr. Bains, attending physician. Alejandro Sky DO PGY-1, [employer] Pager #[phone] <Marivel Bains V - Last Filed: 06/27/18 15:44> Objective - Vital Signs/Intake and Output Vital Signs (last 24 hours): Temp Pulse Resp BP Pulse Ox 97.8 F 86 20 105/59 L 97 06/27/18 07:00 06/27/18 07:00 06/27/18 07:00 06/27/18 07:00 06/27/18 07:00 Intake and Output: 06/27/18 06/27/18 06:59 18:59 Intake Total 120 Balance 120 - Medications Medications: Current Medications Al Hydrox/Mg Hydrox/Simethicone (Maalox 30 Ml) 30 ml PO TID PRN PRN Reason: Indigestion / Heartburn Clonidine HCl (Catapres) 0.1 mg PO Q4 PRN PRN Reason: COWS Score More or Equal to 5 Last Admin: 06/27/18 12:30 Dose: 0.1 mg Dicyclomine HCl (Bentyl) 10 mg PO Q6 PRN PRN Reason: Muscle spasm Divalproex Sodium (Depakote Dr) 250 mg PO BID [facility] Last Admin: 06/27/18 09:20 Dose: 250 mg Docusate Sodium (Colace) 100 mg PO DAILY [facility] Last Admin: 06/27/18 09:20 Dose: 100 mg Ferrous Sulfate (Feosol) 325 mg PO DAILY [facility] Last Admin: 06/27/18 09:20 Dose: 325 mg Gabapentin (Neurontin) 400 mg PO TID [facility] Last Admin: 06/27/18 14:35 Dose: 400 mg Hydroxyzine HCl (Atarax) 25 mg PO Q6 PRN PRN Reason: Anxiety Last Admin: 06/24/18 18:38 Dose: 25 mg Vancomycin/Sodium Chloride (Vancomycin 1 Gm/Ns 200 Ml) 1 gm in 200 mls @ 133 mls/hr IVPB Q24H [facility]; Protocol Stop: 07/01/18 18:01 Last Admin: 06/26/18 19:33 Dose: 133 mls/hr Sodium Chloride (Sodium Chloride 0.9%) 1,000 mls @ 75 mls/hr IV .[id number] [facility] Last Admin: 06/27/18 10:50 Dose: 75 mls/hr Ibuprofen (Motrin Tab) 600 mg PO Q6 PRN PRN Reason: Pain, moderate (4-7) Loperamide HCl (Imodium) 2 mg PO Q8 PRN PRN Reason: Diarrhea Lorazepam (Ativan) 1 mg PO Q12H [facility]; Taper Stop: 06/28/18 15:59 Last Admin: 06/27/18 04:32 Dose: 1 mg Lorazepam (Ativan) 0.5 mg PO Q6H PRN PRN Reason: severe anxiety Methadone HCl (Methadone) 5 mg PO Q24H [facility]; Taper Stop: 06/28/18 09:59 Last Admin: 06/27/18 09:19 Dose: 5 mg Methadone HCl (Methadone) 5 mg PO ONCE ONE Stop: 06/28/18 09:01 Nicotine (Nicoderm Cq) 1 patch TD DAILY [facility] Last Admin: 06/27/18 09:28 Dose: 1 patch Ondansetron HCl (Zofran Tab) 4 mg PO Q8 PRN PRN Reason: Nausea/Vomiting Last Admin: 06/26/18 10:05 Dose: 4 mg Pneumococcal Polyvalent Vaccine (Pneumovax 23 Vaccine) 0.5 ml IM .ONCE ONE Stop: 06/29/18 10:01 Quetiapine Fumarate (Seroquel) 100 mg PO HS [facility] Last Admin: 06/26/18 21:23 Dose: 100 mg Trazodone HCl (Desyrel) 50 mg PO HS PRN PRN Reason: Insomnia Last Admin: 06/26/18 21:25 Dose: 50 mg - Labs Labs: 06/27/18 08:03 06/27/18 08:03 Attending/Attestation - Attestation I have personally seen and examined this patient.: Yes I have fully participated in the care of the patient.: Yes I have reviewed all pertinent clinical information, including history, physical exam and plan: Yes Notes (Text): This is a 27-year-old female with past medical history of heroin abuse hepatitis C who has never been treated. Patient was transferred from [facility] for to [facility] for benefit of IV antibiotics for a beta-hemolytic a urine culture which was positive. However patient is allergic to penicillin she reports she has hives denies any angioedema or any anaphylactic reaction. Today patient is very anxious sneezing concern more for withdrawal signs. Patient was seen by psychiatry and was given an additional dose of Ativan methadone by psychiatry team. Patient appears ill but clinically dry patient started on IV fluids. We did have a discussion with the patient she was concerned if she has syphilis or not. He did indicate to her that the test and RPR was positive we are waiting on a secondary test to confirm it may take a little bit of time if so she would need treatment for also that she would need to communicate with any of her sexual partners to get treated as well. We did do a full body exam patient noted palpable lymphadenopathy over the right inguinal area which is tender to palpation but in light of potential urinary tract infection is likely reactive we did tell her she that she needs to monitor this area after antibiotics to see if this area subsides and is less tender not if it does not subside she will need to follow-up with her outpatient doctor. Infectious disease was consulted. We will follow-up to see if any further recommendations in light of her beta-hemolytic urine culture, hepatitis C and light of her penicillin allergy.
[2018-06-27] MEDS: Sodium Chloride 0.9% 1,000 ML IV SCH (10:50)
--- NOTE | 2018-06-27 11:09 | PCM.PYCHPN ---
Psychiatric Progress Note - Psychiatric Progress Note Patient seen today, length of contact: 17 min Patient Chief Complaint: "I'm anxious, I threw up" Problems Identified/Issues Discussed: The pt is seen, chart reviewed, case discussed with staff. She is now in medical floor Support and psychoeducation given Pt is improving slowly and needs more time, still has ongoing symptoms. She had breakthru sxs (yawning a lot, runny nose, pains, chills) - and anxiety extra methadone and ativan given No SEs from medications, risks discussed. After care discussed - still wants to go to a rehab Medication Change: Yes (detox changes daily) Medical Record Reviewed: Yes Mental Status Examination - Cognitive Function Orientation: Person, Place, Situation, Time Memory: Intact Attention: WNL Concentration: Poor Association: WNL Fund of Knowledge: Poor - Mood Mood: Depressed, Anxious - Affect Affect: Constricted - Speech Speech: Soft - Formal Thought Process Formal Thought Process: No Impairment - Suicidal Ideation Suicidal Ideation: No - Homicidal Ideation Homicidal Ideation: No Goal/Treatment Plan - Goal/Treatment Plan Need for Continued Stay: Discharge may exacerbated symptoms, Other (medical) Progress Toward Problem(s) and Goals/Treatment Plan: Taper with methadone and lorazepam (doesn't want librium) when she withdraws Gabapentin for augmentation if needed As needed medications All risks, benefits and alternatives of the meds discussed, and the pt agreed and understood. Supportive therapy and psychoeducation [place] for abstinence CBT for relapse prevention Encourage MAT Refer to rehab or IOP, and self-help groups Teach healthy lifestyle methods, i.e. diet, exercise, meditation Smoking cessation with [place] Nicotine patch if needed
--- NOTE | 2018-06-27 11:49 | CP.PCM.CON ---
History of Present Illness - History of Present Illness History of Present Illness: 27 yo female with hx of substance abuse and Hep C admitted for detox beta strep in urine and + RPR denies frequency/ dysuria no fever or leukocytosis may be colonized await FTA ABS Review of Systems - Review of Systems All systems: reviewed and no additional remarkable complaints except - Constitutional Constitutional: As Per HPI (x). absent: Chills, Fever - EENT Eyes: absent: As Per HPI, Blind Spots, Blurred Vision, Change in Vision, Decreased Night Vision, Diplopia, Discharge, Dry Eye, Exophthalmos, Floaters, Irritation, Itchy Eyes, Loss of Peripheral Vision, Pain, Photophobia, Requires Corrective Lenses, Sees Flashes, Spots in Vision, Tunnel Vision, Other Visual Disturbances, Loss of Vision, Other Ears: absent: As Per HPI, Decreased Hearing, Ear Discharge, Ear Pain, Tinnitus, Abnormal Hearing, Disequilibrium, Dizziness, Other Nose/Mouth/Throat: absent: As Per HPI, Epistaxis, Nasal Congestion, Nasal Discharge, Nasal Obstruction, Nasal Trauma, Nose Pain, Post Nasal Drip, Sinus Pain, Sinus Pressure, Bleeding Gums, Change in Voice, Dental Pain, Dry Mouth, Dysphagia, Halitosis, Hoarsness, Lip Swelling, Mouth Lesions, Mouth Pain, Odynophagia, Sore Throat, Throat Swelling, Tongue Swelling, Facial Pain, Neck Pain, Neck Mass, Other - Cardiovascular Cardiovascular: absent: As Per HPI, Acrocyanosis, Chest Pain, Chest Pain at Rest, Chest Pain with Activity, Claudication, Diaphoresis, Dyspnea, Dyspnea on Exertion, Edema, Irregular Heart Rhythm, Pain Radiating to Arm/Neck/Jaw, Leg Edema, Leg Ulcers, Lightheadedness, Orthopnea, Palpitations, Paroxysmal Nocturnal Dyspnea, Pedal Edema, Radiating Pain, Rapid Heart Rate, Slow Heart Rate, Syncope, Other - Respiratory Respiratory: absent: As Per HPI, Cough, Dyspnea, Hemoptysis, Dyspnea on Exe rtion, Wheezing, Snoring, Stridor, Pain on Inspiration, Chest Congestion, Excessive Mucous Production, Change in Mucous Color, Pain with Coughing, Other - Gastrointestinal Gastrointestinal: absent: As Per HPI, Abdominal Pain, Belching, Bloating, Change in Bowel Habits, Change in Stool Character, Coffee Ground Emesis, Constipation, Cramping, Diarrhea, Dyspepsia, Dysphagia, Early Satiety, Excessive Flatus, Fecal Incontinence, Heartburn, Hematemesis, Hematochezia, Loose Stools, Melena, Nausea, Odynophagia, Temesmus, Vomiting, Other - Genitourinary Genitourinary: As Per HPI - Reproductive: Female Reproductive:Female: absent: As Per HPI, Amenorrhea, Amenorrhea/ Control, Currently Menstual, Cycle <21 Days, Cycle >35 Days, Cycle Variable, Menses 1-7 Days, Menses >/= 8 Days, Menses Variable, Cycle > 4 Weeks Between, No Menses for 6 Months, Heavy Menses, Light Menses, Normal Menses, Spotting Between Cycles, S/P Hysterectomy, Menopausal, Post Menopausal, Premenarche, Abnormal Vaginal Bleeding, Dysmenorrhea, Dyspareunia, Genital Lesions, Genital Pruritis, Pelvic Pain, Prolapse Symptoms, Sexual Dysfunction, Vaginal Discharge, Vaginal Dryness, Vaginal Odor, Vaginal Pruritis, Other - Menstruation Menstruation: absent: As Per HPI, Amenorrhea, Amenorrhea/ Control, Currently Menstual, Cycle <21 Days, Cycle >35 Days, Cycle Variable, Menses 1-7 Days, Menses >/= 8 Days, Menses Variable, Cycle > 4 Weeks Between, No Menses for 6 Months, Heavy Menses, Light Menses, Normal Menses, Spotting Between Cycles, S/P Hysterectomy, Menopausal, Post Menopausal, Premenarche, Abnormal Vaginal Bleeding, Dysmenorrhea, Other - Musculoskeletal Musculoskeletal: absent: As Per HPI, Abnormal Gait, Arthralgias, Atrophy, Back Pain, Deformity, Joint Swelling, Limited Range of Motion, Loss of Height, Muscle Cramps, Muscle Weakness, Myalgias, Neck Pain, Numbness, Radiating Pain into Limb, Stiffness, Tingling, Other Past Patient History - Infectious Disease Hx of Infectious Diseases: None - Tetanus Immunizations Tetanus Immunization: Up to Date - Past Medical History & Family History Past Medical History?: Yes - Past Social History Smoking Status: Current Some Days Smoker - CARDIAC Hx Hypertension: No - PULMONARY Hx Respiratory Disorders: No Hx Tuberculosis: No - NEUROLOGICAL Hx Seizures: Yes (withdrawal related) - HEENT Hx HEENT Problems: No - RENAL Hx Chronic Kidney Disease: No - ENDOCRINE/METABOLIC Hx Endocrine Disorders: No - HEMATOLOGICAL/ONCOLOGICAL Hx Anemia: Yes Hx Human Immunodeficiency Virus (HIV): No - INTEGUMENTARY Hx Dermatological Problems: No - MUSCULOSKELETAL/RHEUMATOLOGICAL Hx Falls: No - GASTROINTESTINAL Hx Gastrointestinal Disorders: No - GENITOURINARY/GYNECOLOGICAL Hx Sexually Transmitted Disorders: No - PSYCHIATRIC Hx Substance Use: Yes - SURGICAL HISTORY Hx Surgeries: Yes Hx Section: Yes Hx Orthopedic Surgery: Yes (RT HIP REPLACEMENT 2017) - ANESTHESIA Hx Anesthesia: Yes Hx Anesthesia Reactions: No Hx Malignant Hyperthermia: No Meds Allergies/Adverse Reactions: Allergies Allergy/AdvReac Type Severity Reaction Status Date / Time Penicillins Allergy RASH Verified 06/23/18 02:05 cheese AdvReac Intermediate RASH Verified 06/23/18 02:05 - Medications Medications: Current Medications Al Hydrox/Mg Hydrox/Simethicone (Maalox 30 Ml) 30 ml PO TID PRN PRN Reason: Indigestion / Heartburn Clonidine HCl (Catapres) 0.1 mg PO Q4 PRN PRN Reason: COWS Score More or Equal to 5 Last Admin: 06/25/18 18:51 Dose: 0.1 mg Dicyclomine HCl (Bentyl) 10 mg PO Q6 PRN PRN Reason: Muscle spasm Divalproex Sodium (Depakote Dr) 250 mg PO BID [facility] Last Admin: 06/27/18 09:20 Dose: 250 mg Docusate Sodium (Colace) 100 mg PO DAILY [facility] Last Admin: 06/27/18 09:20 Dose: 100 mg Ferrous Sulfate (Feosol) 325 mg PO DAILY [facility] Last Admin: 06/27/18 09:20 Dose: 325 mg Gabapentin (Neurontin) 400 mg PO TID [facility] Last Admin: 06/27/18 09:20 Dose: 400 mg Hydroxyzine HCl (Atarax) 25 mg PO Q6 PRN PRN Reason: Anxiety Last Admin: 06/24/18 18:38 Dose: 25 mg Vancomycin/Sodium Chloride (Vancomycin 1 Gm/Ns 200 Ml) 1 gm in 200 mls @ 133 mls/hr IVPB Q24H [facility]; Protocol Stop: 07/01/18 18:01 Last Admin: 06/26/18 19:33 Dose: 133 mls/hr Sodium Chloride (Sodium Chloride 0.9%) 1,000 mls @ 75 mls/hr IV .[id number] [facility] Last Admin: 06/27/18 10:50 Dose: 75 mls/hr Ibuprofen (Motrin Tab) 600 mg PO Q6 PRN PRN Reason: Pain, moderate (4-7) Loperamide HCl (Imodium) 2 mg PO Q8 PRN PRN Reason: Diarrhea Lorazepam (Ativan) 1 mg PO Q12H [facility]; Taper Stop: 06/28/18 15:59 Last Admin: 06/27/18 04:32 Dose: 1 mg Lorazepam (Ativan) 0.5 mg PO Q6H PRN PRN Reason: severe anxiety Methadone HCl (Methadone) 5 mg PO Q24H [facility]; Taper Stop: 06/28/18 09:59 Last Admin: 06/27/18 09:19 Dose: 5 mg Nicotine (Nicoderm Cq) 1 patch TD DAILY [facility] Last Admin: 06/27/18 09:28 Dose: 1 patch Ondansetron HCl (Zofran Tab) 4 mg PO Q8 PRN PRN Reason: Nausea/Vomiting Last Admin: 06/26/18 10:05 Dose: 4 mg Pneumococcal Polyvalent Vaccine (Pneumovax 23 Vaccine) 0.5 ml IM .ONCE ONE Stop: 06/29/18 10:01 Quetiapine Fumarate (Seroquel) 100 mg PO HS [facility] Last Admin: 06/26/18 21:23 Dose: 100 mg Trazodone HCl (Desyrel) 50 mg PO HS PRN PRN Reason: Insomnia Last Admin: 06/26/18 21:25 Dose: 50 mg Physical Exam - Constitutional Appears: Non-toxic, Chronically Ill - Head Exam Head Exam: NORMOCEPHALIC - Eye Exam Eye Exam: absent: Scleral icterus Pupil Exam: NORMAL ACCOMODATION - ENT Exam ENT Exam: Mucous Membranes Dry, Normal External Ear Exam - Respiratory Exam Respiratory Exam: Decreased Breath Sounds - Cardiovascular Exam Cardiovascular Exam: REGULAR RHYTHM - GI/Abdominal Exam GI & Abdominal Exam: Diminished Bowel Sounds, Soft - Exam Exam: NORMAL INSPECTION - Extremities Exam Extremities exam: Negative for: pedal edema - Back Exam Back exam: absent: CVA tenderness (L), CVA tenderness (R) - Neurological Exam Neurological exam: Alert, CN II-XII Intact, Oriented x3, Reflexes Normal - Psychiatric Exam Psychiatric exam: Depressed - Skin Skin Exam: Dry Results - Vital Signs Recent Vital Signs: Last Vital Signs Temp 97.8 F 06/27/18 07:00 Pulse 86 06/27/18 07:00 Resp 20 05/21/19 07:00 BP 105/59 L 06/27/18 07:00 Pulse Ox 97 06/27/18 07:00 - Labs Result Diagrams: 06/27/18 08:03 06/27/18 08:03 Labs: Laboratory Results - last 24 hr 06/26/18 06/26/18 06/26/18 16:57 16:57 16:57 WBC 7.0 RBC 4.71 Hgb 11.9 Hct 36.6 MCV 77.7 L MCH 25.3 L MCHC 32.5 L RDW 15.9 H Plt Count 163 MPV 10.0 Neut % (Auto) 63.9 Lymph % (Auto) 28.7 [place] % (Auto) 6.3 Eos % (Auto) 0.3 Baso % (Auto) 0.8 Neut # (Auto) 4.5 Lymph # (Auto) 2.0 [place] # (Auto) 0.4 Eos # (Auto) 0.0 Baso # (Auto) 0.1 Sodium 138 Potassium 4.0 Chloride 101 Carbon Dioxide 24 Anion Gap 16 BUN 18 H Creatinine 0.8 Est GFR ( Amer) > 60 Est GFR (Non-Af Amer) > 60 Random Glucose 127 H D Calcium 9.6 Phosphorus Magnesium Total Bilirubin 0.5 AST 64 H D ALT 16 Alkaline Phosphatase 86 Total Protein 9.5 H Albumin 4.4 Globulin 5.1 H Albumin/Globulin Ratio 0.9 L Urine Color Urine Clarity Urine pH Ur Specific [place] Urine Protein Urine Glucose (UA) Urine Ketones Urine Blood Urine Nitrate Urine Bilirubin Urine Urobilinogen Ur Leukocyte Esterase Urine WBC (Auto) Urine RBC (Auto) Ur Squamous Epith Cells Urine Bacteria RPR Titer RPR Hepatitis A IgM Ab Negative Hep Bs Antigen Negative Hep B Core IgM Ab Negative Hepatitis C Antibody Reactive 06/26/18 06/26/18 06/27/18 16:57 20:11 08:03 WBC 5.9 RBC 4.69 Hgb 12.0 Hct 36.1 MCV 77.1 L MCH 25.6 L MCHC 33.3 RDW 16.0 H Plt Count 139 MPV 10.7 Neut % (Auto) 63.0 Lymph % (Auto) 28.2 [place] % (Auto) 6.8 Eos % (Auto) 1.2 Baso % (Auto) 0.8 Neut # (Auto) 3.7 Lymph # (Auto) 1.7 [place] # (Auto) 0.4 Eos # (Auto) 0.1 Baso # (Auto) 0.0 Sodium Potassium Chloride Carbon Dioxide Anion Gap BUN Creatinine Est GFR ( Amer) Est GFR (Non-Af Amer) Random Glucose Calcium Phosphorus Magnesium Total Bilirubin AST ALT Alkaline Phosphatase Total Protein Albumin Globulin Albumin/Globulin Ratio Urine Color [place] Urine Clarity Hazy Urine pH 6.0 Ur Specific [place] 1.024 Urine Protein Negative Urine Glucose (UA) Normal Urine Ketones Negative Urine Blood Negative Urine Nitrate Negative Urine Bilirubin Negative Urine Urobilinogen 4.0 H Ur Leukocyte Esterase Neg Urine WBC (Auto) 4 Urine RBC (Auto) 2 Ur Squamous Epith Cells 12 H Urine Bacteria Rare RPR Titer 1:2 H RPR Reactive H Hepatitis A IgM Ab Hep Bs Antigen Hep B Core IgM Ab Hepatitis C Antibody 06/27/18 08:03 WBC RBC Hgb Hct MCV MCH MCHC RDW Plt Count MPV Neut % (Auto) Lymph % (Auto) [place] % (Auto) Eos % (Auto) Baso % (Auto) Neut # (Auto) Lymph # (Auto) [place] # (Auto) Eos # (Auto) Baso # (Auto) Sodium 140 Potassium 4.4 Chloride 104 Carbon Dioxide 23 Anion Gap 17 BUN 19 H Creatinine 0.9 Est GFR ( Amer) > 60 Est GFR (Non-Af Amer) > 60 Random Glucose 107 H Calcium 9.6 Phosphorus 4.3 Magnesium 2.1 Total Bilirubin 0.4 AST 72 H ALT 22 Alkaline Phosphatase 94 Total Protein 9.4 H Albumin 4.3 Globulin 5.1 H Albumin/Globulin Ratio 0.8 L Urine Color Urine Clarity Urine pH Ur Specific [place] Urine Protein Urine Glucose (UA) Urine Ketones Urine Blood Urine Nitrate Urine Bilirubin Urine Urobilinogen Ur Leukocyte Esterase Urine WBC (Auto) Urine RBC (Auto) Ur Squamous Epith Cells Urine Bacteria RPR Titer RPR Hepatitis A IgM Ab Hep Bs Antigen Hep B Core IgM Ab Hepatitis C Antibody Assessment & Plan (1) Depression Status: Acute (2) Opioid use disorder Status: Acute (3) Alcohol use disorder Status: Acute - Assessment and Plan (Free Text) Assessment: 27 yo female with hx of substance abuse and Hep C admitted for detox beta strep in urine and + RPR denies frequency/ dysuria no fever or leukocytosis may be colonized asymptomatic bacteriuria await FTA ABS
[2018-06-27] MEDS: Vancomycin 1 gm/NS 200 ml 1 GM/200 ML BAG IVPB SCH (17:37)
[2018-06-27 22:56] LABS: BARBITURATES, UR NEGATIVE (NEGATIVE); PHENCYCLIDINE, UR NEGATIVE (NEGATIVE)
[2018-06-27 23:10] LABS: BENZODIAZEPINES, UR POSITIVE (NEGATIVE); OPIATES, UR POSITIVE (NEGATIVE)
[2018-06-27 23:33] VITALS: O2SAT 99
[2018-06-28] MEDS: Sodium Chloride 0.9% 1,000 ML IV SCH (00:01)
--- NOTE | 2018-06-28 07:03 | CP.PCM.PN ---
Subjective - Date & Time of Evaluation Date of Evaluation: 06/28/18 Time of Evaluation: 09:00 - Subjective Subjective: Was called to bedside due to pt requesting to leave against medical advice. Informed patient at time that her repeat urine culture results were not resulted, in addition to the confirmatory test to determine if the patient has syphilis. Case discussed with Dr. Connors (ID), who recommended pt be placed on Doxycycline 100 mg PO bid for total of 1 month. Prescription provided to pt at bedside. Dr. Nunez was informed of pt wanting to leave against medical advice and provided prescriptions for her psychiatric medications. Pt was educated on risks of leaving against medical advice including worsening of her UTI symptoms, possible kidney infection. Instructed pt to inform partners of Hep C and syphilis status and ensure that they get tested and treated as well to prevent spread of these communicable diseases. Pt provided phone number ([phone]) to be reached regarding results of confirmatory test for syphilis, once it results from the laboratory. Pt was also interested in receiving information about following up at [facility] for chronic care of her medical conditions, and was provided that prior to leaving AMA. All questions and concerns addressed with patient at bedside. AMA forms signed at bedside with RN as witness. Case d/w Dr. Bains, attending physician. Alejandro Sky DO PGY-1, Clinical Instructor Pager #[phone] Objective - Vital Signs/Intake and Output Vital Signs (last 24 hours): Temp Pulse Resp BP Pulse Ox 97.7 F 84 20 101/68 99 06/27/18 23:30 06/27/18 23:30 06/27/18 23:30 06/27/18 23:30 06/27/18 23:30 Intake and Output: 06/28/18 06/28/18 06:59 18:59 Intake Total 840 Balance 840 - Medications Medications: Current Medications Al Hydrox/Mg Hydrox/Simethicone (Maalox 30 Ml) 30 ml PO TID PRN PRN Reason: Indigestion / Heartburn Clonidine HCl (Catapres) 0.1 mg PO Q4 PRN PRN Reason: COWS Score More or Equal to 5 Last Admin: 06/27/18 19:19 Dose: 0.1 mg Dicyclomine HCl (Bentyl) 10 mg PO Q6 PRN PRN Reason: Muscle spasm Divalproex Sodium (Depakote Dr) 250 mg PO BID [facility] Last Admin: 06/27/18 17:36 Dose: 250 mg Docusate Sodium (Colace) 100 mg PO DAILY [facility] Last Admin: 06/27/18 09:20 Dose: 100 mg Ferrous Sulfate (Feosol) 325 mg PO DAILY [facility] Last Admin: 06/27/18 09:20 Dose: 325 mg Gabapentin (Neurontin) 400 mg PO TID [facility] Last Admin: 06/27/18 17:37 Dose: 400 mg Hydroxyzine HCl (Atarax) 25 mg PO Q6 PRN PRN Reason: Anxiety Last Admin: 06/27/18 20:01 Dose: 25 mg Vancomycin/Sodium Chloride (Vancomycin 1 Gm/Ns 200 Ml) 1 gm in 200 mls @ 133 mls/hr IVPB Q24H [facility]; Protocol Stop: 07/01/18 18:01 Last Admin: 06/27/18 17:37 Dose: 133 mls/hr Sodium Chloride (Sodium Chloride 0.9%) 1,000 mls @ 75 mls/hr IV .[id number] [facility] Last Admin: 06/28/18 00:01 Dose: 75 mls/hr Ibuprofen (Motrin Tab) 600 mg PO Q6 PRN PRN Reason: Pain, moderate (4-7) Loperamide HCl (Imodium) 2 mg PO Q8 PRN PRN Reason: Diarrhea Lorazepam (Ativan) 1 mg PO Q24H [facility]; Taper Stop: 06/28/18 15:59 Last Admin: 06/27/18 17:36 Dose: Not Given Lorazepam (Ativan) 0.5 mg PO Q6H PRN PRN Reason: severe anxiety Last Admin: 06/27/18 17:47 Dose: 0.5 mg Methadone HCl (Methadone) 5 mg PO Q24H [facility]; Taper Stop: 06/28/18 09:59 Last Admin: 06/27/18 09:19 Dose: 5 mg Methadone HCl (Methadone) 5 mg PO ONCE ONE Stop: 06/28/18 09:01 Nicotine (Nicoderm Cq) 1 patch TD DAILY [facility] Last Admin: 06/27/18 09:28 Dose: 1 patch Ondansetron HCl (Zofran Tab) 4 mg PO Q8 PRN PRN Reason: Nausea/Vomiting Last Admin: 06/26/18 10:05 Dose: 4 mg Pneumococcal Polyvalent Vaccine (Pneumovax 23 Vaccine) 0.5 ml IM .ONCE ONE Stop: 06/29/18 10:01 Quetiapine Fumarate (Seroquel) 100 mg PO HS TERA Last Admin: 06/27/18 21:00 Dose: 100 mg Trazodone HCl (Desyrel) 50 mg PO HS PRN PRN Reason: Insomnia Last Admin: 06/27/18 21:00 Dose: 50 mg - Labs Labs: 06/27/18 08:03 06/27/18 08:03
[2018-06-28 07:35] VITALS: BP 110/77; PULSE 88; TEMP 97.6
[2018-06-28] MEDS: Divalproex 250 mg DR Tab PO SCH (08:09)
[2018-06-28] MEDS: Divalproex 500 mg DR Tab PO SCH ×2 (09:00→16:02)
--- NOTE | 2018-06-28 09:32 | PCM.PYCHPN ---
Psychiatric Progress Note - Psychiatric Progress Note Patient seen today, length of contact: 16 min Patient Chief Complaint: "I'm fine" Problems Identified/Issues Discussed: The pt is seen, chart reviewed, case discussed with staff. She is cleared for d/c Medication Change: Yes (detox changes daily) Medical Record Reviewed: Yes Mental Status Examination - Cognitive Function Orientation: Person, Place, Situation, Time Memory: Intact Attention: WNL Concentration: Poor Association: WNL Fund of Knowledge: Poor - Mood Mood: Depressed, Anxious - Affect Affect: Constricted - Speech Speech: Soft - Formal Thought Process Formal Thought Process: No Impairment - Suicidal Ideation Suicidal Ideation: No - Homicidal Ideation Homicidal Ideation: No Goal/Treatment Plan - Goal/Treatment Plan Need for Continued Stay: Discharge may exacerbated symptoms, Other (medical) Progress Toward Problem(s) and Goals/Treatment Plan: Taper with methadone and lorazepam (doesn't want librium) when she withdraws Gabapentin for augmentation if needed As needed medications All risks, benefits and alternatives of the meds discussed, and the pt agreed and understood. Supportive therapy and psychoeducation SD for abstinence CBT for relapse prevention Encourage MAT Refer to rehab or IOP, and self-help groups Teach healthy lifestyle methods, i.e. diet, exercise, meditation Smoking cessation with SD Nicotine patch if needed
--- NOTE | 2018-06-28 14:19 | CP.PCM.DIS ---
Provider - Provider Date of Admission: 06/23/18 15:45 Attending physician: Marivel Bains DO Primary care physician: Dr. Whiteside Consults: 06/26/18 13:10 Internal Medicine Consult Routine Comment: Consulting Provider: Marivel Bains V Consulting Physician: Marivel Bains V Reason for Consult: Beta hemolytic strep group b, uti 06/26/18 16:16 Psychiatry Consult Routine Comment: Consulting Provider: Wyatt Nunez Consulting Physician: Wyatt Nunez Reason for Consult: Heroin detox 06/26/18 23:17 Infectious Disease Consult Routine Comment: Consulting Provider: Rayo Connors Consulting Physician: Rayo Connors Reason for Consult: positive RPR, hepatitis C, beta strep, uti , allergic to PCN Time Spent in preparation of Discharge (in minutes): 35 Diagnosis - Discharge Diagnosis (1) Anemia Status: Acute (2) Decreased platelet count Status: Chronic (3) Alcohol use disorder Status: Chronic (4) Depression Status: Chronic (5) Drug abuse Status: Chronic (6) Opioid use disorder Status: Chronic (7) UTI (urinary tract infection) Status: Acute (8) Hepatitis C Status: Chronic Priority: Medium (9) Positive RPR test Status: Acute Hospital Course - Lab Results Lab Results: Micro Results 06/26/18 20:11 Urine,Clean Catch Urine Culture - Final 50-100,000 CFU/ML. MULTIPLE SPECIES. SUGGEST REPEAT SPECIMEN. 06/23/18 16:51 Urine Random Urine Culture - Final Beta Hemolytic Strep Group B Most Recent Lab Values WBC 5.9 K/uL (4.8-10.8) 06/27/18 08:03 RBC 4.69 Mil/uL (3.80-5.20) 06/27/18 08:03 Hgb 12.0 g/dL (11.0-16.0) 06/27/18 08:03 Hct 36.1 % (34.0-47.0) 06/27/18 08:03 MCV 77.1 fL (81.0-99.0) L 06/27/18 08:03 MCH 25.6 pg (27.0-31.0) L 06/27/18 08:03 MCHC 33.3 g/dL (33.0-37.0) 06/27/18 08:03 RDW 16.0 % (11.5-14.5) H 06/27/18 08:03 Plt Count 139 K/uL (130-400) 06/27/18 08:03 MPV 10.7 fL (7.2-11.7) 06/27/18 08:03 Neut % (Auto) 63.0 % (50.0-75.0) 06/27/18 08:03 Lymph % (Auto) 28.2 % (20.0-40.0) 06/27/18 08:03 Whiteside % (Auto) 6.8 % (0.0-10.0) 06/27/18 08:03 Eos % (Auto) 1.2 % (0.0-4.0) 06/27/18 08:03 Baso % (Auto) 0.8 % (0.0-2.0) 06/27/18 08:03 Neut # (Auto) 3.7 K/uL (1.8-7.0) 06/27/18 08:03 Lymph # (Auto) 1.7 K/uL (1.0-4.3) 06/27/18 08:03 Whiteside # (Auto) 0.4 K/uL (0.0-0.8) 06/27/18 08:03 Eos # (Auto) 0.1 K/uL (0.0-0.7) 06/27/18 08:03 Baso # (Auto) 0.0 K/uL (0.0-0.2) 06/27/18 08:03 Sodium 140 mmol/L (132-148) 06/27/18 08:03 Potassium 4.4 mmol/L (3.6-5.2) 06/27/18 08:03 Chloride 104 mmol/L (98-107) 06/27/18 08:03 Carbon Dioxide 23 mmol/L (22-30) 06/27/18 08:03 Anion Gap 17 (10-20) 06/27/18 08:03 BUN 19 mg/dL (7-17) H 06/27/18 08:03 Creatinine 0.9 mg/dL (0.7-1.2) 06/27/18 08:03 Est GFR ( Amer) > 60 06/27/18 08:03 Est GFR (Non-Af Amer) > 60 06/27/18 08:03 Random Glucose 107 mg/dL (65-105) H 06/27/18 08:03 Calcium 9.6 mg/dl (8.6-10.4) 06/27/18 08:03 Phosphorus 4.3 mg/dL (2.5-4.5) 06/27/18 08:03 Magnesium 2.1 mg/dL (1.6-2.3) 06/27/18 08:03 Iron 29 ug/dL (37-170) L 06/23/18 16:51 TIBC 266 ug/dL (250-450) 06/23/18 16:51 % Saturation 11 (20-55) L 06/23/18 16:51 Total Bilirubin 0.4 mg/dL (0.2-1.3) 06/27/18 08:03 AST 72 U/L (14-36) H 06/27/18 08:03 ALT 22 U/L (9-52) 06/27/18 08:03 Alkaline Phosphatase 94 U/L (38-126) 06/27/18 08:03 Total Protein 9.4 g/dL (6.3-8.3) H 06/27/18 08:03 Albumin 4.3 g/dL (3.5-5.0) 06/27/18 08:03 Globulin 5.1 gm/dL (2.2-3.9) H 06/27/18 08:03 Albumin/Globulin Ratio 0.8 (1.0-2.1) L 06/27/18 08:03 Urine Color Anabelle (YELLOW) 06/26/18 20:11 Urine Clarity Hazy (Clear) 06/26/18 20:11 Urine pH 6.0 (5.0-8.0) 06/26/18 20:11 Ur Specific [place] 1.024 (1.003-1.030) 06/26/18 20:11 Urine Protein Negative mg/dL (NEGATIVE) 06/26/18 20:11 Urine Glucose (UA) Normal mg/dL (Normal) 06/26/18 20:11 Urine Ketones Negative mg/dL (NEGATIVE) 06/26/18 20:11 Urine Blood Negative (NEGATIVE) 06/26/18 20:11 Urine Nitrate Negative (NEGATIVE) 06/26/18 20:11 Urine Bilirubin Negative (NEGATIVE) 06/26/18 20:11 Urine Urobilinogen 4.0 mg/dL (0.2-1.0) H 06/26/18 20:11 Ur Leukocyte Esterase Neg Jim/uL (Negative) 06/26/18 20:11 Urine WBC (Auto) 4 /hpf (0-5) 06/26/18 20:11 Urine RBC (Auto) 2 /hpf (0-3) 06/26/18 20:11 Ur Squamous Epith Cells 12 /hpf (0-5) H 06/26/18 20:11 Urine Bacteria Rare (<OCC) 06/26/18 20:11 Urine HCG, Qual Negative (NEGATIVE) 06/23/18 03:57 Urine Opiates Screen Positive (NEGATIVE) H 06/27/18 22:30 U Oxycodone Qual Negative (NEGATIVE) 06/28/18 10:27 Urine Methadone Screen Positive (NEGATIVE) H 06/27/18 22:30 Ur Barbiturates Screen Negative (NEGATIVE) 06/27/18 22:30 Ur Phencyclidine Scrn Negative (NEGATIVE) 06/27/18 22:30 Ur Amphetamines Screen Negative (NEGATIVE) 06/27/18 22:30 U Benzodiazepines Scrn Positive (NEGATIVE) 06/27/18 22:30 U Oth Cocaine Metabols Positive (NEGATIVE) H 06/27/18 22:30 U Cannabinoids Screen Positive (NEGATIVE) H 06/27/18 22:30 Alcohol, Quantitative < 10 mg/dl (0-10) 06/23/18 02:40 RPR Titer 1:2 (NONREACTIVE) H 06/26/18 16:57 RPR Reactive (NONREACTIVE) H 06/26/18 16:57 T.pallidum Ab (FTA-ABS) Nonreactive (Nonreactive) 06/26/18 16:57 Hepatitis A IgM Ab Negative (NEGATIVE) 06/26/18 16:57 Hep Bs Antigen Negative (NEGATIVE) 06/26/18 16:57 Hep B Core IgM Ab Negative (NEGATIVE) 06/26/18 16:57 Hepatitis C Antibody Reactive (NEGATIVE) 06/26/18 16:57 HIV 1&2 Antibody Screen Negative (NEGATIVE) 06/23/18 16:51 - Hospital Course Hospital Course: HPI at time of admission: "27 y o female with PMhx Hepatitis C, Heroin abuse, Cocaine abuse, IVDA. decreased platelets, depression, who presented to the ED on 06/23/18 for heroin detoxification. Reason for medical consult was for Beta-hemolytic strep group B in urine culture and UTI. Pt denies any UTI symptoms currently, states she has been adequately hydrating herself with water on the detox floor and voiding well without concerns. Denies burning with urination, urinary frequency, changes in color of urine, abnormal odor, or abnormal vaginal discharge or bleeding. Reports LMP was 2 y ago, pt attributes this to her heroin abuse. Admits to having low back pain since she presented to the detox unit, but states she has long-standing chronic low back pain that has been present for a long time. Reports being treated about 3 mos ago with Monistat cream for a yeast infection while incarcerated." Hospital Course Pt was admitted to med/surg floor for IV antibiotic therapy for Beta-hemolytic strep group B in urine culture and UTI. Patient also tested positive for RPR, confirmatory testing pending for syphilis. ID (Dr. Connors) and Psych (Dr. Nunez) were consulted. Pt was started on Vancomycin 2/2 allergy to PCN and urine cx organism resistant to Clindamycin. Pt also had STD testing performed, which confirmed Hep C Ab reactive. RPR was positive, confirmatory testing was sent for FTA-Ab. Pt was also found to have iron-deficiency anemia, and placed on Feosol therapy. Pt left against medical advice on 06/28/18. Please see earlier progress note today for details regarding that encounter. Extensive counseling was provided regarding cessation of IVDA, EtOH and smoking. For further details of hospital course, please refer to hospital EMR. Discharge Exam - Head Exam Head Exam: NORMOCEPHALIC Additional comments: Unable to assess due to patient leaving against medical advice. Discharge Plan - Discharge Medications Prescriptions: cloNIDine [Catapres] 0.1 mg PO BID PRN #20 tab PRN Reason: COWS Score More or Equal to 5 Divalproex [Depakote DR] 500 mg PO BID #30 tcp Doxycycline Monohydrate 100 mg PO BID #60 tablet Gabapentin [Neurontin] 400 mg PO BID #30 cap QUEtiapine [Seroquel] 100 mg PO HS #14 tab - Follow Up Plan Condition: STABLE Disposition: AGAINST MEDICAL ADVICE Instructions: Clonidine, Doxycycline, Gabapentin, Quetiapine, Valproic Acid and Derivatives, Opioid Use Disorder Additional Instructions: Discharge Hotline Numbers: [place] [facility] 24 Hour Hotline: 377-174 HELP (7582) AA- Alcoholics Anonymous 24 Hour Hotline: 8-737-063- 2320 NA- Narcotics Anonymous 24 Hour Hotline: [place] [facility]ictions [facility] Hotline: [place] Quitline Self-Help Meeting Websites: AA Meeting List: www.nnjaa.org NA Meeting List: www.narcoticsanonymous[place].org If needed you can reach the detox unit at Avoid all mood and mind altering substances including alcohol. Make every effort to make 90 meetings in 90 days and obtain a sponsor and get involved in 12 step recovery. Follow up with you primary doctor for your medical needs Nutrition: Eat balanced meals incorporating fruits, vegetables and protein. Drink plenty of water throughout the day at least 8 to 10 cups. Sleep is extremely important in your recovery. Follow Up Appointments: Appointment pending [address] Transportation:
[2018-06-29] MEDS ORDERED: Pneumococcal 23-Valent Vaccine IM ONE (10:00)
== END 2018-06-28 11:14 | disposition left against medical advice (07) | DRG 743 ==
LOC: C.ER 01:41 → C.7D 06:34 → INTOOBSV 06:34 → C.7D 07:22 → OBSVTOIN 15:45 → C.3T 06-26 17:58
PROVIDERS: ADMIT Psychiatry & Neurology Psychiatry; ATTEND Hospitalist
PROC: GZ56ZZZ Individual Psychotherapy, Supportive (ICD-10-PCS; principal; 2018-06-23)
DX: F11.23 Opioid dependence with withdrawal (principal); B19.20 Unspecified viral hepatitis C without hepatic coma; N39.0 Urinary tract infection, site not specified; B37.9 Candidiasis, unspecified; F14.90 Cocaine use, unspecified, uncomplicated; D50.9 Iron deficiency anemia, unspecified; F12.90 Cannabis use, unspecified, uncomplicated; F17.210 Nicotine dependence, cigarettes, uncomplicated; F41.9 Anxiety disorder, unspecified; G47.00 Insomnia, unspecified; G89.29 Other chronic pain; B95.4 Other streptococcus as the cause of diseases classified elsewhere; F19.10 Other psychoactive substance abuse, uncomplicated; Z88.0 Allergy status to penicillin; Z96.641 Presence of right artificial hip joint; F10.10 Alcohol abuse, uncomplicated; Z16.29 Resistance to other single specified antibiotic; F31.4 Bipolar disorder, current episode depressed, severe, without psychotic features; A53.9 Syphilis, unspecified